=== PATIENT | female | born 1930 | race Caucasian/White ===

== ENCOUNTER 2017-03-20 15:22 | Inpatient (IN) | payer MEDICARE, OTHER ==
[~2017-03-20] VITALS: Ht 172.7 cm; Wt 85.8 kg
[2017-03-20] MEDS ORDERED: ONDANSETRON 4 MG INJ IV STA (15:25)
[2017-03-20] MEDS ORDERED: SOD CHLORIDE 0.9% 1,000 ML IV STA (15:25)
--- NOTE | 2017-03-20 16:15 | RADRPT ---
PROCEDURE: CT abdomen and pelvis without IV contrast. CLINICAL INDICATION: Abdominal pain TECHNIQUE: CT scan of the abdomen and pelvis without contrast was performed on the [employer] volumetric [address] scanner. The patient was scanned without intravenous contrast. Coronal and sagittal refo rmatted images were obtained from the axial source images. The CTDI vol is 23.62 mGy and the DLP is 1333.06 mGy-cm. COMPARISON: None. FINDINGS: CT abdomen: Mild dependent bibasilar atelectasis is seen. The remaining lung bases are clear. The heart size i s not enlarged and is without pericardial thickening or effusion. Coronary vascular calcifications a re seen. The liver is normal in size and is without focal mass or intrahepatic biliary dilatation. Geographic fatty infiltration of the liver is seen involving the left hepatic lobe adjacent to the falciform l igament. The spleen is normal in size and homogeneous in density. A small hiatal hernia is seen. The stomach is otherwise grossly unremarkable. The pancreas as visualized is normal. The gallbladder is contracted. No common bile duct dilatation is seen. The adrenal glands are symmetric and normal. The kidneys are symmetrically unremarkable as well. No renal calculus or obstructive uropathy or mass lesion is seen. The aorta is of normal in caliber. Atherosclerotic vascular disease is seen. There are There is no r etroperitoneal lymphadenopathy. The job hepatis region is clear. Sigmoid diverticulosis is seen without evidence of diverticulitis. The small and remainder of the large bowel and mesentery, as vis ualized, are otherwise unremarkable. No inflammatory changes in the periappendiceal region is seen. CT pelvis: The pelvic organs are normal. The pelvic sidewalls and inguinal regions are clear. No pelvic mass, lymphadenopathy, or free fluid is seen. No acute inflammation is seen. The urinary bladder is dis tended.. Diffuse osteopenia is seen. Degenerative spondylosis of the lumbar spine is seen. No osteolytic or osteoblastic lesion is detected. Diffuse fatty atrophy of the musculature is seen. IMPRESSION: 1. No acute pathology in the abdomen and pelvis. 2. Diffuse fatty atrophy of the musculature. 3. Sigmoid diverticulosis without evidence of diverticulitis. 4. Geographic fatty infiltration of the liver. RPTAT: HPNM Nilo Suarez, Physician Date Time Electronically viewed and signed by Nilo Suarez, Physician on 03/20/2017 16:14 /
--- NOTE | 2017-03-20 16:16 | ERA ---
ER Documentation Chief Complaint Date/Time DATE: 03/20/17 TIME: 16:14 Chief Complaint decreased appetite unable to eat or drink x3days HPI 86-year-old female, extremely pleasant who presents with decreased appetite and decreased p.o. intake over the past 3 days. Patient states that every time she eats or drinks she becomes nauseated. She states that she does not feel like eating or drinking. She denies any abdominal pain, no headache, no chest pain or shortness of breath no fevers or chills. No diarrhea. ROS All systems reviewed and are negative except as per history of present illness. Medications Home Meds Reported Medications Dextran/Hypromellose/Glycerin (Artificial Tears Drops) 15 Ml Drops, 2 DROP BOTH EYES BID, EA 03/20/17 Simvastatin* (Zocor*) 20 Mg Tablet, 20 MG PO QHS, #30 TAB 03/20/17 Docusate Sodium* (Colace*) 250 Mg Capsule, 250 MG PO QHS, #30 CAP 03/20/17 Escitalopram Oxalate* (Escitalopram Oxalate*) 10 Mg Tablet, 10 MG PO QAM, #30 TAB 03/20/17 Lorazepam* (Lorazepam*) 0.5 Mg Tablet, 0.5 MG PO HS Y for ANXIETY, TAB 03/20/17 Furosemide* (Furosemide*) 20 Mg Tablet, 20 MG PO DAILY, #60 TAB 03/20/17 Sennosides* (Senna Lax*) 8.6 Mg Tablet, 1 TAB PO DAILY Y for PRN, TAB 03/20/17 Ezetimibe* (Zetia*) 10 Mg Tablet, 10 MG PO DAILY, TAB 03/20/17 Cilostazol* (Cilostazol*) 100 Mg Tablet, 100 MG PO DAILY, TAB 03/20/17 Metoprolol Tartrate* (Lopressor*) 25 Mg Tab, 25 MG PO NOON, #60 TAB 03/20/17 Metformin Hcl* (Metformin Hcl*) 500 Mg Tablet, 500 MG PO WITH BREAKFAST, #30 TAB 03/20/17 Allergies Allergies: Coded Allergies: No Known Allergy (Unverified , 03/20/17) PMhx/Soc Medical and Surgical Hx: pt denies Surgical Hx History of Surgery: No Anesthesia Reaction: No Hx Neurological Disorder: No Hx Respiratory Disorders: No Hx Cardiac Disorders: Yes (CHF, HTN, Hyperlipidemia) Hx Psychiatric Problems: Yes (Depression) Hx Miscellaneous Medical Probl: Yes (DMII) Hx Alcohol Use: No Hx Substance Use: No Hx Tobacco Use: No Smoking Status: Never smoker FmHx Family History: No diabetes Physical Exam Vitals Vital Signs Date Time Temp Pulse Resp B/P Pulse Ox O2 Delivery O2 Flow Rate FiO2 03/20/17 16:56 86 14 157/79 98 Room Air 03/20/17 15:34 98.5 125 20 159/82 98 Physical Exam General: Well developed, well nourished, no acute distress Head: Normocephalic, atraumatic. Eyes: Pupils equally reactive, EOM intact ENT: Dry mucous membranes Neck: Supple, no lymphadenopathy Respiratory: Lungs clear bilaterally, no distress Cardiovascular: RRR, no murmurs, rubs, or gallops Abdominal: Soft, non-tender, non-distended, no peritoneal signs : Deferred MSK: No edema, no unilateral swelling, 5/5 strength Neurologic: Alert and oriented, moving all extremities, normal speech, no focal weakness, no cerebellar signs Skin: No rash Psych: Normal mood Result Diagram: 03/20/17 1650 03/20/17 1650 Results 24 hrs Laboratory Tests Test 03/20/17 16:50 White Blood Count 10.410^3/ul Red Blood Count 4.0910^6/ul Hemoglobin 12.7g/dl Hematocrit 38.7% Mean Corpuscular Volume 94.6fl Mean Corpuscular Hemoglobin 31.1pg Mean Corpuscular Hemoglobin Concent 32.8g/dl Red Cell Distribution Width 12.8% Platelet Count 57008^3/UL Mean Platelet Volume 11.1fl Neutrophils % 68.6% Lymphocytes % 19.3% Monocytes % 9.8% Eosinophils % 0.8% Basophils % 0.6% Nucleated Red Blood Cells % 0.0/100WBC Neutrophils # 7.210^3/ul Lymphocytes # 2.010^3/ul Monocytes # 1.010^3/ul Eosinophils # 0.110^3/ul Basophils # 0.110^3/ul Nucleated Red Blood Cells # 0.010^3/ul Sodium Level 142mmol/L Potassium Level 2.6mmol/L Chloride Level 94mmol/L Carbon Dioxide Level 25mmol/L Anion Gap 26 Blood Urea Nitrogen 11mg/dl Creatinine 0.58mg/dl Glucose Level 139mg/dl Calcium Level 6.7mg/dl Magnesium Level 0.5mg/dl Total Bilirubin 0.5mg/dl Direct Bilirubin 0.00mg/dl Indirect Bilirubin 0.5mg/dl Aspartate Amino Transf (AST/SGOT) 56IU/L Alanine Aminotransferase (ALT/SGPT) 28IU/L Alkaline Phosphatase 97IU/L Troponin I 0.078ng/ml Total Protein 8.4g/dl Albumin 3.9g/dl Globulin 4.50g/dl Albumin/Globulin Ratio 0.86 Lipase 57U/L Current Medications Medications (Trade) Dose Ordered Sig/Maria Del Rosario Route PRN Reason Start Time Stop Time Status Last Admin Dose Admin Sodium Chloride (NS) 1,000 ml @ 1,000 mls/hr Q1H STAT IV 03/20/17 15:25 03/20/17 16:24 DC 03/20/17 16:48 Ondansetron HCl 4 mg 4 mg ONCE STAT IV 03/20/17 15:25 03/20/17 15:26 DC 03/20/17 16:48 Potassium Chloride 50 ml @ 50 mls/hr Q1H IVPB 03/20/17 18:00 03/20/17 20:59 Potassium Chloride 30 meq/ Sodium Chloride 265 ml @ 85 mls/hr ONCE IV 03/20/17 18:00 03/20/17 23:00 Magnesium Sulfate/ Dextrose (Magnesium Sulfate 1 Gm/D5W) 100 ml @ 100 mls/hr ONCE ONCE IVPB 03/20/17 18:00 03/20/17 18:59 Ondansetron HCl (Zofran Inj) 4 mg BRIDGE ORDER PRN IV NAUSEA AND/OR VOMITING 03/20/17 18:30 03/21/17 18:29 Acetaminophen (Tylenol Tab) 650 mg ER BRIDGE PRN PO MILD PAIN/FEVER 03/20/17 18:30 03/21/17 18:29 Procedures/MDM EKG, MONITORS, & DIAGNOSTIC IMAGING: EKG: I reviewed and interpreted a 12-lead EKG. Rhythm: Normal sinus rhythm Ectopy: Trigeminy Intervals: No abnormalities ST segments: No elevations or depressions T waves: No contiguous inversions Chest x-ray: I reviewed and interpreted a 1 view of the chest Mediastinum: No enlargement Cardiac silhouette: No cardiomegaly Airspace: Clear lung hayden bilaterally without evidence of pneumothorax Bones: No evidence of fracture CT abdomen and pelvis: No acute intra-abdominal process per radiology PROCEDURE: Peripheral IV Insertion: Indication: Difficult IV access Location: Left deep brachial Attempts: 2 Angiocath-type: 18 The patient was consented prior to procedure and states understanding of risks, benefits, alternatives. Verbal consent was provided Sterile procedure was used to insert a peripheral IV. Indication, location and Angiocath-type are noted above. Ultrasound guidance was used to assist in the insertion of the Angiocath. Return of dark nonpulsatile blood was obtained, normal saline flushed through the Angiocath which was then secured to the skin. The patient tolerated the procedure well without complications. Emergency Bedside Ultrasound: The patient was verbally consented prior to procedure and understands the risks , benefits, and alternatives. The patient is agreeable to procedure and has given verbal consent. Indication: Peripheral IV insertion Probe Type: Linear Findings: Dynamic ultrasound utilized with compression technique with both linear and horizontal views. The images were printed off and placed on a paper document that will be scanned into the chart. The patient tolerated the procedure well and there were no complications. LAB INTERPRETATION: Hypokalemia, hypomagnesemia MEDICAL DECISION MAKING: The patient presents with decreased appetite. Very broad differential exists including infectious process versus acute intra-abdominal process versus viral syndrome versus normal aging. Given the patient's age, laboratory testing and diagnostic imaging would be appropriate including CT imaging of the abdomen and pelvis. Patient will receive IV fluid hydration. ER COURSE: The patient's potassium and magnesium have been repleted. She was given IV fluids. Given that the patient is severely dehydrated with electrolyte disturbances, no p.o. intake for 3 days inpatient hospitalization would be most appropriate. I kept the patient and/or family informed of laboratory and diagnostic imaging results throughout the emergency room course. DISPOSITION PLAN: Medical surgical admission for management of severe dehydration and electrolyte disturbances CONSULTATION: Accepting care team and consultations: I discussed the current laboratory data, diagnostic imaging and emergency care provided. Admitting team: Dr. Eng Admitting team indication: Insurance directed Departure Diagnosis: Primary Impression: Severe dehydration Additional Impressions: Loss of appetite Hypokalemia Hypomagnesemia Condition: Stable JES BRIZUELA MD March 20, 2017 16:16
--- NOTE | 2017-03-20 16:22 | RADRPT ---
PROCEDURE: XR Chest. CLINICAL INDICATION: Abdomen pain. TECHNIQUE: Single frontal view. COMPARISON: None. FINDINGS: The lungs are clear. The heart size is normal. There is calcification in the aorta consistent with atherosclerosis. There is no pleural effusion. There is no pneumothorax. IMPRESSION: 1. Atherosclerosis. 2. Otherwise normal chest radiograph. RPTAT: QQ .Larry Marsh MD, MD Date Time Electronically viewed and signed by .Larry Marsh MD, on 03/20/2017 16:22 .R/
[2017-03-20 16:57] LABS: ADD SCAN DIFF NO
[2017-03-20 16:58] LABS: BASOPHIL # 0.1 10^3/ul (0.0-0.1); BASOPHILS % 0.6 % (0.0-2.0); EOSINOPHILS # 0.1 10^3/ul (0.0-0.5); EOSINOPHILS % 0.8 % (0.0-7.0); HEMATOCRIT 38.7 % (37.0-47.0); HEMOGLOBIN 12.7 g/dl (12.0-16.0); LYMPHOCYTES % 19.3 % (15.0-51.0); MEAN CORPUSCULAR HEMOGLOBIN 31.1 pg (29.0-33.0); MEAN CORPUSCULAR HGB CONC 32.8 g/dl (32.0-37.0); MEAN CORPUSCULAR VOLUME 94.6 fl (82.0-101.0); MEAN PLATELET VOLUME 11.1 fl (7.4-10.4); MONOCYTES % 9.8 % (0.0-11.0); NEUTROPHIL # 7.2 10^3/ul (1.6-7.5); NEUTROPHILS % 68.6 % (39.0-77.0); PLATELET COUNT 258 10^3/UL (140-415); RED BLOOD COUNT 4.09 10^6/ul (4.20-5.40); RED CELL DISTRIBUTION WIDTH 12.8 % (11.5-14.5); WHITE BLOOD COUNT 10.4 10^3/ul (4.8-10.8)
[2017-03-20] MEDS ORDERED: METF500T4 PO (17:14)
[2017-03-20] MEDS ORDERED: METO-448 PO (17:17)
[2017-03-20 17:18] LABS: ALBUMIN 3.9 g/dl (3.3-4.9)
[2017-03-20] MEDS ORDERED: CILO100T PO (17:18)
[2017-03-20] MEDS ORDERED: EZET10TA3 PO (17:18)
[2017-03-20] MEDS ORDERED: FURO20TA3 PO (17:19)
[2017-03-20] MEDS ORDERED: SENN-53 PO (17:19)
[2017-03-20] MEDS ORDERED: LORA0.5T PO (17:20)
[2017-03-20] MEDS ORDERED: ESCI10TA48 PO (17:20)
[2017-03-20 17:21] LABS: BILIRUBIN,INDIRECT 0.5 mg/dl (0-1.1); BILIRUBIN,TOTAL 0.5 mg/dl (0.2-1.3); CREATININE 0.58 mg/dl (0.44-1.00)
[2017-03-20] MEDS ORDERED: DOCU250C58 PO (17:21)
[2017-03-20 17:22] LABS: ALBUMIN/GLOBULIN RATIO 0.86; CALCIUM 6.7 mg/dl (8.4-10.2); TOTAL PROTEIN 8.4 g/dl (6.1-8.1)
[2017-03-20] MEDS ORDERED: SIMV20TA PO (17:22)
[2017-03-20] MEDS ORDERED: DEXT15DR2 BOTH EYES (17:23)
[2017-03-20 17:26] LABS: POTASSIUM 2.6 mmol/L (3.5-5.1)
[2017-03-20 17:34] LABS: TROPONIN-I 0.078 ng/ml (0.00-0.12)
[2017-03-20] MEDS ORDERED: POTASSIUM CHLORIDE 30 MEQ in SOD CHLORIDE 0.9% 250 ML IV SCH (18:00)
[2017-03-20] MEDS: POTASSIUM CHLORIDE 50 ML IVPB SCH ×2 (18:00→22:18)
[2017-03-20] MEDS ORDERED: MAGNESIUM SULFATE 1 GM/D5W 100 ML IVPB ONE (18:00)
[2017-03-20] MEDS ORDERED: ACETAMINOPHEN 325 MG TAB PO PRN ×2 (18:30→19:00)
[2017-03-20] MEDS ORDERED: ONDANSETRON 4 MG INJ IV PRN ×2 (18:30→19:00)
[2017-03-20] MEDS ORDERED: LORAZEPAM 0.5 MG TAB PO PRN (19:00)
[2017-03-20] MEDS ORDERED: morphine 2 MG INJ IV PRN (19:00)
[2017-03-20] MEDS ORDERED: LORAZEPAM 2 MG INJ IV PRN (19:00)
[2017-03-20] MEDS ORDERED: NACL 0.9% 3 ML SYG IV SCH (19:00)
[2017-03-20] MEDS ORDERED: MAGNESIUM SULFATE 3 GM in SOD CHLORIDE 0.9% 100 ML IVPB ONE (19:00)
[2017-03-20] MEDS ORDERED: SENNA TAB PO PRN (19:00)
[2017-03-20] MEDS ORDERED: BISACODYL (EC) 5 MG TAB PO PRN (19:00)
[2017-03-20] MEDS ORDERED: MAGNESIUM HYDROXIDE 30ML CUP PO PRN (19:00)
[2017-03-20] MEDS ORDERED: HYDROCODONE/APAP (5/325) TAB PO PRN (19:00)
[2017-03-20] MEDS ORDERED: DEXTROSE 50% 50 ML SYRINGE IV PRN ×2 (19:30)
[2017-03-20] MEDS ORDERED: GLUCOSE GEL 15 GRAM TUBE PO PRN ×2 (19:30)
[2017-03-20] MEDS ORDERED: GLUCAGON 1 MG INJ IM PRN (19:30)
[2017-03-20] MEDS ORDERED: GLUCOSE GEL 15 GRAM TUBE BUCCAL PRN (19:30)
[2017-03-20 20:07] VITALS: BP 127/92; RESP 16
[2017-03-20] MEDS ORDERED: VITAMIN A & D 5 GM OINT PACKET TOP ONE (20:11)
--- NOTE | 2017-03-20 20:36 | HP ---
DATE OF ADMISSION: 03/20/2017 TIME OF EVALUATION: 1830. REASON FOR ADMISSION: Decreased appetite, poor oral intake for the past 3 days. HISTORY OF PRESENT ILLNESS: This is an 86-year-old female with past medical history of essential hypertension, type 2 diabetes mellitus, depression, hyperlipidemia and possible congestive heart failure who came to the emergency room because of decreased appetite and inability to eat and drink for the past 3 days with associated nausea. The patient denied any vomiting. The patient denied any abdominal pain. The patient denied any dislike of food. The patient lives in a [facility], and the patient had a good report of the [facility], and she likes to stay there. The patient denied any worsening depression. The patient is wheelchair bound and more or less immobile. The patient has a daughter who is very involved in the patient's care. The patient denied any fevers, chills, shortness of breath, chest pain. She denied any diarrhea, hematochezia, dysuria, or hematuria. In the emergency room, the patient was noticed to have significant hypokalemia with a potassium of 2.6 and significant hypomagnesemia with a magnesium of 0.5. The patient's chest x-ray showed atherosclerosis, but no evidence of any acute cardiopulmonary findings. The patient's CT scan of the abdomen and pelvis was negative for any acute pathology in the abdomen and pelvis. The patient was treated with IV fluids along with IV potassium and IV magnesium supplements in the emergency room. PAST MEDICAL HISTORY: Essential hypertension, type 2 diabetes mellitus, depression, hyperlipidemia, CHF. PAST SURGICAL HISTORY: Denies. HOME MEDICATIONS: 1. Simvastatin 20 mg p.o. at bedtime. 2. Lexapro 10 mg p.o. q.a.m. 3. Lorazepam 0.5 mg p.o. at bedtime p.r.n. anxiety. 4. Lasix 20 mg p.o. daily. 5. Zetia 10 mg p.o. daily. 6. Cilostazol 100 mg p.o. daily. 7. Lopressor 25 mg p.o. b.i.d. 8. Metformin 500 mg p.o. with breakfast and dinner. ALLERGIES: NO KNOWN DRUG ALLERGIES. SOCIAL HISTORY: The patient denied any history of tobacco, alcohol or illicit drug use. The patient currently resides in a [facility]. The patient has a daughter who is very involved in the patient's care. REVIEW OF SYSTEMS: A 12-point review of systems were made and review of systems was negative other than what is mentioned in history of present illness. PHYSICAL EXAMINATION: VITAL SIGNS: Temperature 98.5, pulse rate 77, respiratory rate 24, blood pressure 144/78, oxygen saturation 100% on room air. GENERAL: This is an obese female lying in bed in no apparent distress. HEENT: Head normocephalic and atraumatic. Eyes: Anicteric sclerae. Conjunctivae clear. ENT: Nasal septum is midline. Oral mucosa is dry. No oral thrush. NECK: Supple. No JVD noticed. RESPIRATORY: Bilaterally clear to auscultation. No adventitious breath sounds heard. No use of accessory muscles of respiration. CARDIOVASCULAR: Regular rate and rhythm. S1, S2 heard. ABDOMEN: Soft, nontender and nondistended. Bowel sounds positive in all 4 quadrants. GENITOURINARY: Deferred. EXTREMITIES: No cyanosis, no clubbing, no edema. Peripheral pulses are palpable. NEUROLOGIC: The patient is awake, alert and oriented x3. No focal neurologic deficits. LABORATORY AND DIAGNOSTIC DATA: WBC 10.4, hemoglobin 12.7, hematocrit 38.7, platelet count 258. Sodium 142, potassium 2.6, chloride 94, carbon dioxide 20, anion gap 26, BUN 11, creatinine was 0.58, glucose 139, calcium 6.7, magnesium 0.5, AST 56, ALT 20, alkaline phosphatase 97. Chest x-ray: Atherosclerosis. No acute cardiopulmonary findings. CT scan of the abdomen and pelvis: No acute pathology in the abdomen and pelvis. Diffuse diverticulosis without evidence of diverticulitis. Fatty infiltration of the liver. IMPRESSION: This is an 86-year-old female who came to the emergency room with chief complaint of poor oral intake and associated nausea, was found to have evidence of significant dehydration and electrolyte imbalances, who will be admitted here for further treatment and evaluation. ASSESSMENT AND PLAN: 1. Poor oral intake with electrolyte imbalances. The patient will be provided with IV hydration. The patient's electrolytes will be repleted. The patient will be monitored on telemetry floor for any cardiac arrhythmias. The patient will be started on a clear liquid diet, and the patient's diet will be advanced as tolerated. A swallow evaluation will be ordered. The patient's CT scan of the abdomen and pelvis are negative for any acute pathological findings. 2. Anion gap metabolic acidosis. Most probably secondary to underlying dehydration and fasting. The patient will be adequately hydrated using IV fluids. 3. Essential hypertension. The patient will be started on antihypertensives including p.r.n. antihypertensives for any systolic blood pressure readings greater than 160 mmHg. 4. Dyslipidemia. The patient's statins will be resumed. A fasting lipid panel will be obtained. 5. Type 2 diabetes mellitus. The patient will be started on sliding scale insulin. Hemoglobin A1c will be obtained to evaluate the blood glucose control over the past few weeks. 6. Hypokalemia. As mentioned earlier, the patient's potassium will be repleted. Repeat potassium will be done after potassium repletion is finished. 7. Hypomagnesemia. The patient's magnesium will be repleted. Repeat magnesium level will be obtained after the magnesium infusion is finished. 8. History of congestive heart failure. The patient's chest x-ray was negative for any pulmonary vascular congestion. The patient's cardiac medications including Lasix and beta blockers will be resumed. Plan. The patient will be admitted to inpatient telemetry floor. The patient will be started on DVT prophylaxis and gastrointestinal prophylaxis. The patient will remain a FULL CODE. Activities will be bed rest. The rest of the patient's management will be based on clinical course and the results of diagnostic studies. Based on the patient's clinical presentation, she most probably will require at least 1 midnight's stay for further management and evaluation of her clinical presentation. The case and management of this patient was fully discussed with Dr. Valencia. RON VALENCIA MD, AM/YA Conf#: [id number] DID#: [id number] ALICIA
[2017-03-20 20:41] VITALS: PULSE 75
[2017-03-20 21:00] VITALS: Ht 172.7 cm; Wt 85.8 kg
[2017-03-20] MEDS: INSULIN ASPART [NOVOLOG] 3 ML PEN SC SCH (21:00)
[2017-03-20 21:05] LABS: CHOL/HDL RATIO 2.4 RATIO
[2017-03-20 21:06] LABS: POTASSIUM 3.1 mmol/L (3.5-5.1)
[2017-03-20 21:12] LABS: MAGNESIUM 0.8 mg/dl (1.7-2.5)
[2017-03-20] MEDS: FAMOTIDINE 20 MG TAB PO SCH (21:48)
[2017-03-20] MEDS: NS + KCL 20 MEQ 1,000 ML IV SCH (21:48)
[2017-03-20] MEDS: ATORVASTATIN 10 MG TAB PO SCH (21:48)
[2017-03-20] MEDS: METOPROLOL 25 MG TAB PO SCH (21:48)
[2017-03-20] MEDS: DOCUSATE SODIUM 250 MG CAP PO SCH (21:48)
[2017-03-20] MEDS: ARTIFICIAL TEARS 15 ML OPH BOTH EYES SCH (21:50)
[2017-03-21] VITALS (13 sets, daily range): BP systolic 111–167; BP diastolic 56–72; PULSE 63–81; RESP 16–19
[2017-03-21 07:18] LABS: ADD SCAN DIFF NO
[2017-03-21 07:35] LABS: BASOPHIL # 0.1 10^3/ul (0.0-0.1); BASOPHILS % 0.5 % (0.0-2.0); EOSINOPHILS # 0.2 10^3/ul (0.0-0.5); EOSINOPHILS % 1.4 % (0.0-7.0); HEMATOCRIT 33.6 % (37.0-47.0); LYMPHOCYTES # 1.6 10^3/ul (0.8-2.9); LYMPHOCYTES % 14.6 % (15.0-51.0); MEAN CORPUSCULAR HGB CONC 32.7 g/dl (32.0-37.0); MEAN CORPUSCULAR VOLUME 94.6 fl (82.0-101.0); MONOCYTE # 0.9 10^3/ul (0.3-0.9); MONOCYTES % 8.5 % (0.0-11.0); NEUTROPHIL # 7.9 10^3/ul (1.6-7.5); NEUTROPHILS % 74.2 % (39.0-77.0); PLATELET COUNT 323 10^3/UL (140-415); RED BLOOD COUNT 3.55 10^6/ul (4.20-5.40); RED CELL DISTRIBUTION WIDTH 12.7 % (11.5-14.5); WHITE BLOOD COUNT 10.7 10^3/ul (4.8-10.8)
[2017-03-21 07:54] LABS: ALBUMIN/GLOBULIN RATIO 0.83; BILIRUBIN,INDIRECT 0.3 mg/dl (0-1.1); BILIRUBIN,TOTAL 0.3 mg/dl (0.2-1.3); CALCIUM 6.5 mg/dl (8.4-10.2); CREATININE 0.49 mg/dl (0.44-1.00); POTASSIUM 3.1 mmol/L (3.5-5.1); TOTAL PROTEIN 6.6 g/dl (6.1-8.1)
[2017-03-21 07:56] LABS: MAGNESIUM 1.6 mg/dl (1.7-2.5); PHOSPHORUS 2.3 mg/dl (2.5-4.9)
[2017-03-21] MEDS: INSULIN ASPART [NOVOLOG] 3 ML PEN SC SCH ×4 (07:58→21:00)
[2017-03-21 08:02] LABS: TROPONIN-I 0.086 ng/ml (0.00-0.12)
[2017-03-21] MEDS: ARTIFICIAL TEARS 15 ML OPH BOTH EYES SCH ×2 (08:50→21:04)
[2017-03-21] MEDS: ENOXAPARIN 40 MG/0.4 ML SYG SC SCH (08:54)
[2017-03-21] MEDS: CILOSTAZOL 100 MG TAB PO SCH (09:54)
[2017-03-21] MEDS: FUROSEMIDE 20 MG TAB PO SCH (09:54)
[2017-03-21] MEDS: ESCITALOPRAM 10 MG TAB PO SCH (09:54)
[2017-03-21] MEDS: FAMOTIDINE 20 MG TAB PO SCH ×2 (09:54→21:03)
[2017-03-21] MEDS: METOPROLOL 25 MG TAB PO SCH ×2 (09:55→21:04)
[2017-03-21] MEDS ORDERED: MAGNESIUM SULFATE 2 GM/50 ML 50 ML IVPB ONE (10:00)
[2017-03-21] MEDS ORDERED: POTASSIUM CHLORIDE 250 ML IVPB ONE (11:00)
[2017-03-21] MEDS: EZETIMIBE 10 MG TAB PO SCH (11:25)
[2017-03-21] MEDS: NS + KCL 20 MEQ 1,000 ML IV SCH (11:29)
--- NOTE | 2017-03-21 15:46 | PN ---
Date/Time of Note Date/Time of Note DATE: 03/21/17 TIME: 15:41 Assessment/Plan VTE Prophylaxis VTE Prophylaxis Intervention: LMWH Lines/Catheters IV Catheter Type (from [facility]): Peripheral IV Urinary Cath still in place: No Assessment/Plan Chief Complaint/Hosp Course 1. Poor oral intake with electrolyte imbalances. The patient will be provided with IV hydration. The patient's electrolytes will be repleted. The patient will be monitored on telemetry floor for any cardiac arrhythmias. 2. Dysphagia. Status post with therapy evaluation per speech therapy recommended a video swallow eval. Video swallow evaluation ordered. 3. Anion gap metabolic acidosis. Most probably secondary to underlying dehydration and fasting. Resolved with IV hydration. 4. Essential hypertension. The patient will be continued on antihypertensives including p.r.n. antihypertensives for any systolic blood pressure readings greater than 160 mmHg. 5. Dyslipidemia. Continue statins. Fasting lipid panel satisfactory. 6. Type 2 diabetes mellitus. The patient was continued on sliding scale insulin. Hemoglobin A1c 6.4. 7. Hypokalemia. Replete. 8. Hypomagnesemia. Replete. 9. History of congestive heart failure. The patient's chest x-ray was negative for any pulmonary vascular congestion. The patient's cardiac medications including Lasix and beta blockers will be continued. 10. Fluids, electrolytes, and nutrition. Pured diet. 11. DVT prophylaxis. Subcutaneous Lovenox. 12. Gastrointestinal prophylaxis. Histamine 2 receptor blockers. 13. Plan. Continue IV hydration. Replete potassium and magnesium. Obtain physical therapy evaluation. Ordered a video swallow evaluation Problems: Subjective 24 Hr Interval Summary Free Text/Dictation The patient denies any nausea today. Status post evaluation by speech therapy. Exam/Review of Systems Vital Signs Vitals Vital Signs Date Time Temp Pulse Resp B/P Pulse Ox O2 Delivery O2 Flow Rate FiO2 03/21/17 15:37 98.0 73 19 129/62 95 03/20/17 18:19 Room Air Intake and Output 03/20/17 03/20/17 03/21/17 15:00 23:00 07:00 Intake Total 680 ml Balance 680 ml Exam GENERAL: This is an obese female lying in bed in no apparent distress. HEENT: Head normocephalic and atraumatic. Eyes: Anicteric sclerae. Conjunctivae clear. ENT: Nasal septum is midline. Oral mucosa is dry. No oral thrush. NECK: Supple. No JVD noticed. RESPIRATORY: Bilaterally clear to auscultation. No adventitious breath sounds heard. No use of accessory muscles of respiration. CARDIOVASCULAR: Regular rate and rhythm. S1, S2 heard. ABDOMEN: Soft, nontender and nondistended. Bowel sounds positive in all 4 quadrants. GENITOURINARY: Deferred. EXTREMITIES: No cyanosis, no clubbing, no edema. Peripheral pulses are palpable. NEUROLOGIC: The patient is awake, alert and oriented x3. No focal neurologic deficits. Results Result Diagram: 03/21/17 0640 03/21/17 0640 Results 24 hrs Laboratory Tests Test 03/20/17 16:50 03/20/17 20:10 03/20/17 20:20 03/21/17 06:40 White Blood Count 10.4 10.7 Red Blood Count 4.09 L 3.55 L Hemoglobin 12.7 11.0 L Hematocrit 38.7 33.6 L Mean Corpuscular Volume 94.6 94.6 Mean Corpuscular Hemoglobin 31.1 31.0 Mean Corpuscular Hemoglobin Concent 32.8 32.7 Red Cell Distribution Width 12.8 12.7 Platelet Count 258 323 # Mean Platelet Volume 11.1 H 11.0 H Neutrophils % 68.6 74.2 Lymphocytes % 19.3 14.6 L Monocytes % 9.8 8.5 Eosinophils % 0.8 1.4 Basophils % 0.6 0.5 Nucleated Red Blood Cells % 0.0 0.0 Neutrophils # 7.2 7.9 H Lymphocytes # 2.0 1.6 Monocytes # 1.0 H 0.9 Eosinophils # 0.1 0.2 Basophils # 0.1 0.1 Nucleated Red Blood Cells # 0.0 0.0 Sodium Level 142 138 Potassium Level 2.6 *L 3.1 L 3.1 L Chloride Level 94 L 102 Carbon Dioxide Level 25 23 Anion Gap 26 H 16 # Blood Urea Nitrogen 11 8 Creatinine 0.58 0.49 Glucose Level 139 131 Calcium Level 6.7 L 6.5 L Magnesium Level 0.5 *L 0.8 *L 1.6 L Total Bilirubin 0.5 0.3 Direct Bilirubin 0.00 0.00 Indirect Bilirubin 0.5 0.3 Aspartate Amino Transf (AST/SGOT) 56 H 51 H Alanine Aminotransferase (ALT/SGPT) 28 35 Alkaline Phosphatase 97 84 Troponin I 0.078 0.086 Total Protein 8.4 H 6.6 # Albumin 3.9 3.0 L Globulin 4.50 H 3.60 H Albumin/Globulin Ratio 0.86 0.83 Lipase 57 Bedside Glucose 146 Hemoglobin A1c 6.4 H Triglycerides Level 103 Cholesterol Level 121 LDL Cholesterol, Calculated 50 HDL Cholesterol 50 Cholesterol/HDL Ratio 2.4 Thyroid Stimulating Hormone (TSH) 1.470 Free Thyroxine 1.76 Phosphorus Level 2.3 L Test 03/21/17 07:56 03/21/17 11:27 Bedside Glucose 139 182 Medications Medications Current Medications Potassium Chloride/Sodium Chloride (NS-KCl 20 Meq) 1,000 ml @ 60 mls/hr [id number] IV Last administered on 03/20/17 21:48; Admin Dose 60 MLS/HR; Start at 18:50 Lorazepam (Ativan) 0.5 mg Q6H PRN IV ANXIETY; Start 03/20/17 at 19:00 Ondansetron HCl (Zofran Inj) 4 mg Q6H PRN IV NAUSEA AND/OR VOMITING; Start at 19:00 Acetaminophen (Tylenol Tab) 650 mg Q6H PRN PO PAIN LEVEL 1-3 OR FEVER; Start at 19:00 Acetaminophen/ Hydrocodone Bitart ([place] (5/325)) 1 tab Q6H PRN PO PAIN LEVEL 4 -6; Start 03/20/17 at 19:00 Morphine Sulfate (morphine) 2 mg Q4H PRN IV PAIN LEVEL 7-10; Start 03/20/17 at 19:00 Magnesium Hydroxide (Milk Of Mag) 30 ml DAILY PRN PO CONSTIPATION; Start at 19:00 Bisacodyl (Dulcolax) 5 mg DAILY PRN PO CONSTIPATION; Start 03/20/17 at 19:00 Famotidine (Pepcid) 20 mg Q12 PO Last administered on 03/21/17 09:54; Admin Dose 20 MG; Start 03/20/17 at 21:00 Enoxaparin Sodium (Lovenox) 40 mg DAILY SC Last administered on 03/21/17 08:54 ; Admin Dose 40 MG; Start 03/21/17 at 09:00 Cilostazol (Pletal) 100 mg DAILY PO Last administered on 03/21/17 09:54; Admin Dose 100 MG; Start 03/21/17 at 09:00 Eye Lubricant (Artificial Tears Oph) 2 drop BID BOTH EYES Last administered on 03/21/17 08:50; Admin Dose 2 DROP; Start 03/20/17 at 21:00 Docusate Sodium (Colace) 250 mg QHS PO Last administered on 03/20/17 21:48; Admin Dose 250 MG; Start 03/20/17 at 21:00 Escitalopram Oxalate (Lexapro) 10 mg QAM PO Last administered on 03/21/17 09: 54; Admin Dose 10 MG; Start 03/21/17 at 09:00 EZETIMIBE (Zetia) 10 mg DAILY PO Last administered on 03/21/17 11:25; Admin Dose 10 MG; Start 03/21/17 at 09:00 Furosemide (Lasix) 20 mg DAILY PO Last administered on 03/21/17 09:54; Admin Dose 20 MG; Start 03/21/17 at 09:00 Lorazepam (Ativan) 0.5 mg HS PRN PO ANXIETY; Start 03/20/17 at 19:00 Metoprolol Tartrate (Lopressor) 25 mg BID PO Last administered on 03/21/17 09: 55; Admin Dose 25 MG; Start 03/20/17 at 21:00 Senna (Senokot) 1 tab DAILY PRN PO PRN; Start 03/20/17 at 19:00 Atorvastatin Calcium (Lipitor) 10 mg DAILY@21 PO Last administered on 21:48; Admin Dose 10 MG; Start 03/20/17 at 21:00 Miscellaneous Information 1 ea NOTE XX ; Start 03/20/17 at 19:30 Glucose (Glutose) 15 gm Q15M PRN PO DECREASED GLUCOSE; Start 03/20/17 at 19:30 Glucose (Glutose) 22.5 gm Q15M PRN PO DECREASED GLUCOSE; Start 03/20/17 at 19: 30 Dextrose (D50w Syringe) 25 ml Q15M PRN IV DECREASED GLUCOSE; Start 03/20/17 at 19:30 Dextrose (D50w Syringe) 50 ml Q15M PRN IV DECREASED GLUCOSE; Start 03/20/17 at 19:30 Glucagon (Glucagen) 1 mg Q15M PRN IM DECREASED GLUCOSE; Start 03/20/17 at 19:30 Glucose (Glutose) 15 gm Q15M PRN BUCCAL DECREASED GLUCOSE; Start 03/20/17 at 19 :30 RON MORRIS NP March 21, 2017 15:46
[2017-03-21 19:15] LABS: ADD UMIC YES; URINE BILIRUBIN (Dip) 1+ (NEGATIVE); URINE BLOOD (Dip) NEGATIVE (NEGATIVE); URINE COLOR LT. YELLOW (YELLOW); URINE GLUCOSE (Dip) NEGATIVE (NEGATIVE); URINE KETONES (Dip) 3+ (NEGATIVE); URINE LEUKOCYTE ESTERASE (Dip) NEGATIVE (NEGATIVE); URINE NITRITE (Dip) NEGATIVE (NEGATIVE); URINE TOTAL PROTEIN (Dip) TRACE (NEGATIVE); URINE UROBILINOGEN (Dip) 0.2 E.U./dL (0.1-1.0)
[2017-03-21 19:23] LABS: ICTOTEST NEGATIVE (NEGATIVE)
[2017-03-21 19:24] LABS: BACTERIA,URINE FEW; URINE RBCS 0-2 /HPF (0)
[2017-03-21] MEDS: ATORVASTATIN 10 MG TAB PO SCH (21:03)
[2017-03-21] MEDS: DOCUSATE SODIUM 250 MG CAP PO SCH (21:04)
[2017-03-22] VITALS (9 sets, daily range): BP systolic 114–135; BP diastolic 55–63; PULSE 65–91; RESP 18–19
[2017-03-22] MEDS: NS + KCL 20 MEQ 1,000 ML IV SCH ×2 (05:14→23:00)
[2017-03-22 07:30] LABS: ADD SCAN DIFF NO
[2017-03-22 07:34] LABS: BASOPHIL # 0.1 10^3/ul (0.0-0.1); BASOPHILS % 0.6 % (0.0-2.0); EOSINOPHILS # 0.2 10^3/ul (0.0-0.5); EOSINOPHILS % 2.9 % (0.0-7.0); HEMATOCRIT 31.8 % (37.0-47.0); HEMOGLOBIN 10.1 g/dl (12.0-16.0); LYMPHOCYTES # 2.4 10^3/ul (0.8-2.9); LYMPHOCYTES % 28.1 % (15.0-51.0); MEAN CORPUSCULAR HEMOGLOBIN 30.9 pg (29.0-33.0); MEAN CORPUSCULAR HGB CONC 31.8 g/dl (32.0-37.0); MEAN CORPUSCULAR VOLUME 97.2 fl (82.0-101.0); MEAN PLATELET VOLUME 12.3 fl (7.4-10.4); MONOCYTE # 0.7 10^3/ul (0.3-0.9); MONOCYTES % 8.7 % (0.0-11.0); NEUTROPHILS % 59.2 % (39.0-77.0); RED BLOOD COUNT 3.27 10^6/ul (4.20-5.40); WHITE BLOOD COUNT 8.4 10^3/ul (4.8-10.8)
[2017-03-22 07:40] LABS: PLATELET COUNT 248 10^3/UL (140-415)
[2017-03-22 07:46] LABS: CALCIUM 6.4 mg/dl (8.4-10.2); CREATININE 0.59 mg/dl (0.44-1.00); POTASSIUM 3.5 mmol/L (3.5-5.1)
[2017-03-22 07:49] LABS: MAGNESIUM 1.9 mg/dl (1.7-2.5); PHOSPHORUS 2.4 mg/dl (2.5-4.9)
[2017-03-22] MEDS: INSULIN ASPART [NOVOLOG] 3 ML PEN SC SCH ×4 (07:57→21:00)
[2017-03-22] MEDS: ARTIFICIAL TEARS 15 ML OPH BOTH EYES SCH ×2 (08:14→21:00)
[2017-03-22] MEDS: ENOXAPARIN 40 MG/0.4 ML SYG SC SCH (08:15)
[2017-03-22] MEDS: FAMOTIDINE 20 MG TAB PO SCH ×2 (08:15→21:00)
[2017-03-22] MEDS: CILOSTAZOL 100 MG TAB PO SCH (08:15)
[2017-03-22] MEDS: EZETIMIBE 10 MG TAB PO SCH (08:15)
[2017-03-22] MEDS: ESCITALOPRAM 10 MG TAB PO SCH (08:16)
[2017-03-22] MEDS: METOPROLOL 25 MG TAB PO SCH ×2 (08:19→21:00)
[2017-03-22] MEDS: FUROSEMIDE 20 MG TAB PO SCH (08:20)
--- NOTE | 2017-03-22 09:53 | PN ---
Date/Time of Note Date/Time of Note DATE: 03/22/17 TIME: 09:51 Assessment/Plan VTE Prophylaxis VTE Prophylaxis Intervention: LMWH Lines/Catheters IV Catheter Type (from [facility]): Peripheral IV Urinary Cath still in place: No Assessment/Plan Chief Complaint/Hosp Course Assessment and plan 1. Poor oral intake with subsequent I imbalances. On IV hydration. Encourage oral intake. Will monitor electrolytes and replete as needed. Appears stable at this time. 2. Dysphagia. Tentative plan for video swallow study. Awaiting evaluation. 3. Anion gap metabolic acidosis. Improved status post IV hydration. Will monitor for now. 4. Essential hypertension. Continue antihypertensives and adjust needed 5. Dyslipidemia. Continue on statin medication 6. Type 2 diabetes. Noted with A1c of 6.4. Continue insulin regimen. Will adjust as needed 7. Hypokalemia. Improved after repletion. Will monitor and replete as needed 8. Hypomagnesemia. Improved at this time. Will monitor and replete as needed GERD prophylaxis: H2 christie DVT [place]: Lovenox Disposition plan: Await video swallow study. Encourage oral intake. Monitor electrolytes. Discharge when medically stable Discussed plan of care with Dr. Eng Problems: Subjective 24 Hr Interval Summary Free Text/Dictation Still reports having some poor appetite. He is alert and oriented at this time. No apparent distress Exam/Review of Systems Vital Signs Vitals Vital Signs Date Time Temp Pulse Resp B/P Pulse Ox O2 Delivery O2 Flow Rate FiO2 03/22/17 08:20 98.0 71 19 114/55 95 03/21/17 21:02 Room Air Intake and Output 03/21/17 03/21/17 03/22/17 14:59 22:59 06:59 Intake Total 550 ml Output Total 650 ml Balance -100 ml Exam Constitutional: alert, oriented Psych: nl mood/affect Head: normocephalic Neck: supple, No jvd Respiratory: clear to auscultation, normal air movement Cardiovascular: regular rate and rhythm Gastrointestinal: non-tender, soft Musculoskeletal: No nl gait and stance Extremities: edema Neurological: nl mental status (Minimal bilateral lower extremities +1), nl speech Results Result Diagram: 03/22/17 0650 03/22/17 0650 Results 24 hrs Laboratory Tests Test 03/21/17 11:27 03/21/17 16:44 03/21/17 18:40 03/21/17 21:01 Bedside Glucose 182 151 149 Urine Color LT. YELLOW Urine Clarity CLEAR Urine pH 6.0 Urine Specific [place] 1.020 Urine Ketones 3+ H Urine Nitrite NEGATIVE Urine Bilirubin 1+ H Urine Ictotest NEGATIVE Urine Urobilinogen 0.2 E.U./dL Urine Leukocyte Esterase NEGATIVE Urine Microscopic RBC 0-2 Urine Microscopic WBC 0-2 Urine Bacteria FEW Urine Hemoglobin NEGATIVE Urine Glucose NEGATIVE Urine Total Protein TRACE Test 03/22/17 06:50 03/22/17 07:56 White Blood Count 8.4 # Red Blood Count 3.27 L Hemoglobin 10.1 L Hematocrit 31.8 L Mean Corpuscular Volume 97.2 Mean Corpuscular Hemoglobin 30.9 Mean Corpuscular Hemoglobin Concent 31.8 L Red Cell Distribution Width 13.0 Platelet Count 248 # Mean Platelet Volume 12.3 H Neutrophils % 59.2 Lymphocytes % 28.1 Monocytes % 8.7 Eosinophils % 2.9 Basophils % 0.6 Nucleated Red Blood Cells % 0.0 Neutrophils # 5.0 Lymphocytes # 2.4 Monocytes # 0.7 Eosinophils # 0.2 Basophils # 0.1 Nucleated Red Blood Cells # 0.0 Sodium Level 141 Potassium Level 3.5 Chloride Level 107 Carbon Dioxide Level 27 Anion Gap 11 Blood Urea Nitrogen 11 Creatinine 0.59 Glucose Level 111 Calcium Level 6.4 L Phosphorus Level 2.4 L Magnesium Level 1.9 Bedside Glucose 110 Medications Medications Current Medications Potassium Chloride/Sodium Chloride (NS-KCl 20 Meq) 1,000 ml @ 60 mls/hr [id number] IV Last administered on 03/22/17 05:14; Admin Dose 60 MLS/HR; Start at 18:50 Lorazepam (Ativan) 0.5 mg Q6H PRN IV ANXIETY; Start 03/20/17 at 19:00 Ondansetron HCl (Zofran Inj) 4 mg Q6H PRN IV NAUSEA AND/OR VOMITING; Start at 19:00 Acetaminophen (Tylenol Tab) 650 mg Q6H PRN PO PAIN LEVEL 1-3 OR FEVER; Start at 19:00 Acetaminophen/ Hydrocodone Bitart ([place] (5/325)) 1 tab Q6H PRN PO PAIN LEVEL 4 -6 Last administered on 03/21/17 16:39; Admin Dose 1 TAB; Start 03/20/17 at 19: 00 Morphine Sulfate (morphine) 2 mg Q4H PRN IV PAIN LEVEL 7-10; Start 03/20/17 at 19:00 Magnesium Hydroxide (Milk Of Mag) 30 ml DAILY PRN PO CONSTIPATION; Start at 19:00 Bisacodyl (Dulcolax) 5 mg DAILY PRN PO CONSTIPATION; Start 03/20/17 at 19:00 Famotidine (Pepcid) 20 mg Q12 PO Last administered on 03/22/17 08:15; Admin Dose 20 MG; Start 03/20/17 at 21:00 Enoxaparin Sodium (Lovenox) 40 mg DAILY SC Last administered on 03/22/17 08:15 ; Admin Dose 40 MG; Start 03/21/17 at 09:00 Cilostazol (Pletal) 100 mg DAILY PO Last administered on 03/22/17 08:15; Admin Dose 100 MG; Start 03/21/17 at 09:00 Eye Lubricant (Artificial Tears Oph) 2 drop BID BOTH EYES Last administered on 03/22/17 08:14; Admin Dose 2 DROP; Start 03/20/17 at 21:00 Docusate Sodium (Colace) 250 mg QHS PO Last administered on 03/21/17 21:04; Admin Dose 250 MG; Start 03/20/17 at 21:00 Escitalopram Oxalate (Lexapro) 10 mg QAM PO Last administered on 03/22/17 08: 16; Admin Dose 10 MG; Start 03/21/17 at 09:00 EZETIMIBE (Zetia) 10 mg DAILY PO Last administered on 03/22/17 08:15; Admin Dose 10 MG; Start 03/21/17 at 09:00 Furosemide (Lasix) 20 mg DAILY PO Last administered on 03/22/17 08:20; Admin Dose 20 MG; Start 03/21/17 at 09:00 Lorazepam (Ativan) 0.5 mg HS PRN PO ANXIETY; Start 03/20/17 at 19:00 Metoprolol Tartrate (Lopressor) 25 mg BID PO Last administered on 03/22/17 08: 19; Admin Dose 25 MG; Start 03/20/17 at 21:00 Senna (Senokot) 1 tab DAILY PRN PO PRN; Start 03/20/17 at 19:00 Atorvastatin Calcium (Lipitor) 10 mg DAILY@21 PO Last administered on t 21:03; Admin Dose 10 MG; Start 03/20/17 at 21:00 Miscellaneous Information 1 ea NOTE XX ; Start 03/20/17 at 19:30 Glucose (Glutose) 15 gm Q15M PRN PO DECREASED GLUCOSE; Start 03/20/17 at 19:30 Glucose (Glutose) 22.5 gm Q15M PRN PO DECREASED GLUCOSE; Start 03/20/17 at 19: 30 Dextrose (D50w Syringe) 25 ml Q15M PRN IV DECREASED GLUCOSE; Start 03/20/17 at 19:30 Dextrose (D50w Syringe) 50 ml Q15M PRN IV DECREASED GLUCOSE; Start 03/20/17 at 19:30 Glucagon (Glucagen) 1 mg Q15M PRN IM DECREASED GLUCOSE; Start 03/20/17 at 19:30 Glucose (Glutose) 15 gm Q15M PRN BUCCAL DECREASED GLUCOSE; Start 03/20/17 at 19 :30 MT GANN March 22, 2017 09:53
[2017-03-22] MEDS: ATORVASTATIN 10 MG TAB PO SCH (21:00)
[2017-03-22] MEDS: DOCUSATE SODIUM 250 MG CAP PO SCH (21:00)
[2017-03-23] VITALS (11 sets, daily range): BP systolic 108–183; BP diastolic 56–86; PULSE 83–100; RESP 17–20
[2017-03-23] MEDS: INSULIN ASPART [NOVOLOG] 3 ML PEN SC SCH ×4 (07:25→21:00)
[2017-03-23] MEDS: FAMOTIDINE 20 MG TAB PO SCH ×2 (09:13→21:14)
[2017-03-23] MEDS: ARTIFICIAL TEARS 15 ML OPH BOTH EYES SCH ×2 (09:13→21:14)
[2017-03-23] MEDS: EZETIMIBE 10 MG TAB PO SCH (09:13)
[2017-03-23] MEDS: CILOSTAZOL 100 MG TAB PO SCH (09:13)
[2017-03-23] MEDS: METOPROLOL 25 MG TAB PO SCH ×2 (09:14→21:14)
[2017-03-23] MEDS: FUROSEMIDE 20 MG TAB PO SCH (09:14)
[2017-03-23] MEDS: ESCITALOPRAM 10 MG TAB PO SCH (09:14)
[2017-03-23] MEDS: ENOXAPARIN 40 MG/0.4 ML SYG SC SCH (09:15)
--- NOTE | 2017-03-23 11:33 | PN ---
Date/Time of Note Date/Time of Note DATE: 03/23/17 TIME: 11:31 Assessment/Plan VTE Prophylaxis VTE Prophylaxis Intervention: LMWH Lines/Catheters IV C[facility]ter Type (from [facility]): Peripheral IV Urinary Cath still in place: No Assessment/Plan Chief Complaint/Hosp Course 1. Poor oral intake with electrolyte imbalances. The patient will be provided with IV hydration. The patient's electrolytes will be repleted. The patient will be monitored on telemetry floor for any cardiac arrhythmias. 2. Dysphagia. Status post with therapy evaluation per speech therapy recommended a video swallow eval. Video swallow evaluation ordered. 3. Anion gap metabolic acidosis. Most probably secondary to underlying dehydration and fasting. Resolved with IV hydration. 4. Essential hypertension. The patient will be continued on antihypertensives including p.r.n. antihypertensives for any systolic blood pressure readings greater than 160 mmHg. 5. Dyslipidemia. Continue statins. Fasting lipid panel satisfactory. 6. Type 2 diabetes mellitus. The patient was continued on sliding scale insulin. Hemoglobin A1c 6.4. 7. History of congestive heart failure. The patient's chest x-ray was negative for any pulmonary vascular congestion. The patient's cardiac medications including Lasix and beta blockers will be continued. 8. Fluids, electrolytes, and nutrition. Pured diet. 9. DVT prophylaxis. Subcutaneous Lovenox. 10. Gastrointestinal prophylaxis. Histamine 2 receptor blockers. 11. Plan. Continue IV hydration. Await video swallow evaluation. Add PRN antihypertensives. Case discussed with Dr. Eng. Problems: Subjective 24 Hr Interval Summary Free Text/Dictation BP on the higher side. Exam/Review of Systems Vital Signs Vitals Vital Signs Date Time Temp Pulse Resp B/P Pulse Ox O2 Delivery O2 Flow Rate FiO2 03/23/17 08:15 94 03/23/17 07:45 98.1 17 183/70 91 03/21/17 21:02 Room Air Intake and Output 03/22/17 03/22/17 03/23/17 15:00 23:00 07:00 Intake Total 150 ml Balance 150 ml Exam GENERAL: This is an obese female lying in bed in no apparent distress. HEENT: Head normocephalic and atraumatic. Eyes: Anicteric sclerae. Conjunctivae clear. ENT: Nasal septum is midline. Oral mucosa is dry. No oral thrush. NECK: Supple. No JVD noticed. RESPIRATORY: Bilaterally clear to auscultation. No adventitious breath sounds heard. No use of accessory muscles of respiration. CARDIOVASCULAR: Regular rate and rhythm. S1, S2 heard. ABDOMEN: Soft, nontender and nondistended. Bowel sounds positive in all 4 quadrants. GENITOURINARY: Deferred. EXTREMITIES: No cyanosis, no clubbing, no edema. Peripheral pulses are palpable. NEUROLOGIC: The patient is awake, alert and oriented x3. No focal neurologic deficits. Results Result Diagram: 03/22/17 0650 03/22/17 0650 Results 24 hrs Laboratory Tests Test 03/22/17 12:07 03/22/17 17:35 03/22/17 22:42 03/23/17 07:23 Bedside Glucose 125 147 130 122 Medications Medications Current Medications Potassium Chloride/Sodium Chloride (NS-KCl 20 Meq) 1,000 ml @ 60 mls/hr [id number] IV Last administered on 03/22/17 23:00; Admin Dose 60 MLS/HR; Start at 18:50 Lorazepam (Ativan) 0.5 mg Q6H PRN IV ANXIETY; Start 03/20/17 at 19:00 Ondansetron HCl (Zofran Inj) 4 mg Q6H PRN IV NAUSEA AND/OR VOMITING; Start at 19:00 Acetaminophen (Tylenol Tab) 650 mg Q6H PRN PO PAIN LEVEL 1-3 OR FEVER; Start at 19:00 Acetaminophen/ Hydrocodone Bitart ([employer] (5/325)) 1 tab Q6H PRN PO PAIN LEVEL 4 -6 Last administered on 03/21/17 16:39; Admin Dose 1 TAB; Start 03/20/17 at 19: 00 Morphine Sulfate (morphine) 2 mg Q4H PRN IV PAIN LEVEL 7-10; Start 03/20/17 at 19:00 Magnesium Hydroxide (Milk Of Mag) 30 ml DAILY PRN PO CONSTIPATION; Start at 19:00 Bisacodyl (Dulcolax) 5 mg DAILY PRN PO CONSTIPATION; Start 03/20/17 at 19:00 Famotidine (Pepcid) 20 mg Q12 PO Last administered on 03/23/17 09:13; Admin Dose 20 MG; Start 03/20/17 at 21:00 Enoxaparin Sodium (Lovenox) 40 mg DAILY SC Last administered on 03/23/17 09:15 ; Admin Dose 40 MG; Start 03/21/17 at 09:00 Cilostazol (Pletal) 100 mg DAILY PO Last administered on 03/23/17 09:13; Admin Dose 100 MG; Start 03/21/17 at 09:00 Eye Lubricant (Artificial Tears Oph) 2 drop BID BOTH EYES Last administered on 03/23/17 09:13; Admin Dose 2 DROP; Start 03/20/17 at 21:00 Docusate Sodium (Colace) 250 mg QHS PO Last administered on 03/21/17 21:04; Admin Dose 250 MG; Start 03/20/17 at 21:00 Escitalopram Oxalate (Lexapro) 10 mg QAM PO Last administered on 03/23/17 09: 14; Admin Dose 10 MG; Start 03/21/17 at 09:00 EZETIMIBE (Zetia) 10 mg DAILY PO Last administered on 03/23/17 09:13; Admin Dose 10 MG; Start 03/21/17 at 09:00 Furosemide (Lasix) 20 mg DAILY PO Last administered on 03/23/17 09:14; Admin Dose 20 MG; Start 03/21/17 at 09:00 Lorazepam (Ativan) 0.5 mg HS PRN PO ANXIETY; Start 03/20/17 at 19:00 Metoprolol Tartrate (Lopressor) 25 mg BID PO Last administered on 03/23/17 09: 14; Admin Dose 25 MG; Start 03/20/17 at 21:00 Senna (Senokot) 1 tab DAILY PRN PO PRN; Start 03/20/17 at 19:00 Atorvastatin Calcium (Lipitor) 10 mg DAILY@21 PO Last administered on 21:03; Admin Dose 10 MG; Start 03/20/17 at 21:00 Miscellaneous Information 1 ea NOTE XX ; Start 03/20/17 at 19:30 Glucose (Glutose) 15 gm Q15M PRN PO DECREASED GLUCOSE; Start 03/20/17 at 19:30 Glucose (Glutose) 22.5 gm Q15M PRN PO DECREASED GLUCOSE; Start 03/20/17 at 19: 30 Dextrose (D50w Syringe) 25 ml Q15M PRN IV DECREASED GLUCOSE; Start 03/20/17 at 19:30 Dextrose (D50w Syringe) 50 ml Q15M PRN IV DECREASED GLUCOSE; Start 03/20/17 at 19:30 Glucagon (Glucagen) 1 mg Q15M PRN IM DECREASED GLUCOSE; Start 03/20/17 at 19:30 Glucose (Glutose) 15 gm Q15M PRN BUCCAL DECREASED GLUCOSE; Start 03/20/17 at 19 :30 RON MORRIS NP March 23, 2017 11:33 RON MORRIS NP March 23, 2017 11:33
[2017-03-23] MEDS ORDERED: hydrALAzine 20 MG INJ IV PRN (12:00)
[2017-03-23] MEDS: NS + KCL 20 MEQ 1,000 ML IV SCH (13:50)
[2017-03-23] MEDS: DOCUSATE SODIUM 250 MG CAP PO SCH (21:13)
[2017-03-23] MEDS: ATORVASTATIN 10 MG TAB PO SCH (21:13)
[2017-03-23] MEDS: POLYETHYLENE GLYCOL 17 GM PACKET PO SCH (21:15)
[2017-03-24] VITALS (14 sets, daily range): BP systolic 125–175; BP diastolic 63–94; PULSE 74–176; RESP 18
[2017-03-24] MEDS: NS + KCL 20 MEQ 1,000 ML IV SCH ×2 (06:02→20:53)
[2017-03-24 07:52] LABS: ADD SCAN DIFF NO
[2017-03-24] MEDS: INSULIN ASPART [NOVOLOG] 3 ML PEN SC SCH ×4 (08:00→20:43)
[2017-03-24 08:10] LABS: BASOPHIL # 0.1 10^3/ul (0.0-0.1); BASOPHILS % 0.6 % (0.0-2.0); EOSINOPHILS # 0.3 10^3/ul (0.0-0.5); EOSINOPHILS % 3.9 % (0.0-7.0); HEMATOCRIT 32.1 % (37.0-47.0); HEMOGLOBIN 10.2 g/dl (12.0-16.0); LYMPHOCYTES # 2.6 10^3/ul (0.8-2.9); LYMPHOCYTES % 31.2 % (15.0-51.0); MEAN CORPUSCULAR HEMOGLOBIN 30.9 pg (29.0-33.0); MEAN CORPUSCULAR HGB CONC 31.8 g/dl (32.0-37.0); MEAN CORPUSCULAR VOLUME 97.3 fl (82.0-101.0); MEAN PLATELET VOLUME 12.6 fl (7.4-10.4); MONOCYTE # 0.7 10^3/ul (0.3-0.9); MONOCYTES % 7.9 % (0.0-11.0); NEUTROPHIL # 4.7 10^3/ul (1.6-7.5); NEUTROPHILS % 55.8 % (39.0-77.0); PLATELET COUNT 192 10^3/UL (140-415); RED CELL DISTRIBUTION WIDTH 13.2 % (11.5-14.5); WHITE BLOOD COUNT 8.4 10^3/ul (4.8-10.8)
[2017-03-24 08:24] LABS: POTASSIUM 3.7 mmol/L (3.5-5.1)
[2017-03-24 08:25] LABS: MAGNESIUM 1.2 mg/dl (1.7-2.5); PHOSPHORUS 2.3 mg/dl (2.5-4.9)
[2017-03-24 08:26] LABS: CREATININE 0.48 mg/dl (0.44-1.00)
[2017-03-24 08:27] LABS: CALCIUM 7.1 mg/dl (8.4-10.2)
[2017-03-24] MEDS: POLYETHYLENE GLYCOL 17 GM PACKET PO SCH ×2 (12:25→20:53)
[2017-03-24] MEDS: ARTIFICIAL TEARS 15 ML OPH BOTH EYES SCH ×2 (12:26→20:45)
[2017-03-24] MEDS: FUROSEMIDE 20 MG TAB PO SCH (12:26)
[2017-03-24] MEDS: FAMOTIDINE 20 MG TAB PO SCH ×2 (12:26→20:46)
[2017-03-24] MEDS: ESCITALOPRAM 10 MG TAB PO SCH (12:26)
[2017-03-24] MEDS: METOPROLOL 25 MG TAB PO SCH ×2 (12:27→20:54)
[2017-03-24] MEDS: EZETIMIBE 10 MG TAB PO SCH (12:28)
[2017-03-24] MEDS: CILOSTAZOL 100 MG TAB PO SCH (12:28)
[2017-03-24] MEDS: ENOXAPARIN 40 MG/0.4 ML SYG SC SCH (12:30)
--- NOTE | 2017-03-24 15:02 | PN ---
Date/Time of Note Date/Time of Note DATE: 03/24/17 TIME: 14:49 Assessment/Plan VTE Prophylaxis VTE Prophylaxis Intervention: LMWH Lines/Catheters IV C[facility]ter Type (from [facility]): Peripheral IV Urinary Cath still in place: No Assessment/Plan Assessment/Plan 1. Hypomagnesemia, MgSO4 2. Dehydration, improved 3. Dysphagia. Status post with therapy evaluation per speech therapy recommended a video swallow eval. Video swallow evaluation ordered. 4. Essential hypertension. start lisinopril 03/24/2017 5. Dyslipidemia. Continue statins. 6. Type 2 diabetes mellitus. The patient was continued on sliding scale insulin. Hemoglobin A1c 6.4. 7. History of congestive heart failure. sr-table 8. DVT prophylaxis. Subcutaneous Lovenox. Exam/Review of Systems Vital Signs Vitals Vital Signs Date Time Temp Pulse Resp B/P Pulse Ox O2 Delivery O2 Flow Rate FiO2 03/24/17 11:40 98.0 91 18 175/94 95 03/21/17 21:02 Room Air Intake and Output 03/23/17 03/23/17 03/24/17 15:00 23:00 07:00 Intake Total 1520 ml 280 ml Balance 1520 ml 280 ml Results Result Diagram: 03/24/17 0650 03/24/17 0650 Results 24 hrs Laboratory Tests Test 03/23/17 17:55 03/23/17 21:11 03/24/17 06:50 03/24/17 08:38 Bedside Glucose 142 125 114 White Blood Count 8.4 Red Blood Count 3.30 L Hemoglobin 10.2 L Hematocrit 32.1 L Mean Corpuscular Volume 97.3 Mean Corpuscular Hemoglobin 30.9 Mean Corpuscular Hemoglobin Concent 31.8 L Red Cell Distribution Width 13.2 Platelet Count 192 # Mean Platelet Volume 12.6 H Neutrophils % 55.8 Lymphocytes % 31.2 Monocytes % 7.9 Eosinophils % 3.9 Basophils % 0.6 Nucleated Red Blood Cells % 0.0 Neutrophils # 4.7 Lymphocytes # 2.6 Monocytes # 0.7 Eosinophils # 0.3 Basophils # 0.1 Nucleated Red Blood Cells # 0.0 Sodium Level 140 Potassium Level 3.7 Chloride Level 104 Carbon Dioxide Level 27 Anion Gap 13 Blood Urea Nitrogen 8 Creatinine 0.48 Glucose Level 106 Calcium Level 7.1 L Phosphorus Level 2.3 L Magnesium Level 1.2 L Medications Medications Current Medications Potassium Chloride/Sodium Chloride (NS-KCl 20 Meq) 1,000 ml @ 60 mls/hr [id number] IV Last administered on 03/24/17 06:02; Admin Dose 60 MLS/HR; Start at 18:50 Lorazepam (Ativan) 0.5 mg Q6H PRN IV ANXIETY; Start 03/20/17 at 19:00 Ondansetron HCl (Zofran Inj) 4 mg Q6H PRN IV NAUSEA AND/OR VOMITING; Start at 19:00 Acetaminophen (Tylenol Tab) 650 mg Q6H PRN PO PAIN LEVEL 1-3 OR FEVER; Start at 19:00 Acetaminophen/ Hydrocodone Bitart ([place] (5/325)) 1 tab Q6H PRN PO PAIN LEVEL 4 -6 Last administered on 03/21/17 16:39; Admin Dose 1 TAB; Start 03/20/17 at 19: 00 Morphine Sulfate (morphine) 2 mg Q4H PRN IV PAIN LEVEL 7-10; Start 03/20/17 at 19:00 Magnesium Hydroxide (Milk Of Mag) 30 ml DAILY PRN PO CONSTIPATION; Start at 19:00 Bisacodyl (Dulcolax) 5 mg DAILY PRN PO CONSTIPATION; Start 03/20/17 at 19:00 Famotidine (Pepcid) 20 mg Q12 PO Last administered on 03/24/17 12:26; Admin Dose 20 MG; Start 03/20/17 at 21:00 Enoxaparin Sodium (Lovenox) 40 mg DAILY SC Last administered on 03/24/17 12:30 ; Admin Dose 40 MG; Start 03/21/17 at 09:00 Cilostazol (Pletal) 100 mg DAILY PO Last administered on 03/24/17 12:28; Admin Dose 100 MG; Start 03/21/17 at 09:00 Eye Lubricant (Artificial Tears Oph) 2 drop BID BOTH EYES Last administered on 03/24/17 12:26; Admin Dose 2 DROP; Start 03/20/17 at 21:00 Docusate Sodium (Colace) 250 mg QHS PO Last administered on 03/23/17 21:13; Admin Dose 250 MG; Start 03/20/17 at 21:00 Escitalopram Oxalate (Lexapro) 10 mg QAM PO Last administered on 03/24/17 12: 26; Admin Dose 10 MG; Start 03/21/17 at 09:00 EZETIMIBE (Zetia) 10 mg DAILY PO Last administered on 03/24/17 12:28; Admin Dose 10 MG; Start 03/21/17 at 09:00 Furosemide (Lasix) 20 mg DAILY PO Last administered on 03/24/17 12:26; Admin Dose 20 MG; Start 03/21/17 at 09:00 Lorazepam (Ativan) 0.5 mg HS PRN PO ANXIETY; Start 03/20/17 at 19:00 Metoprolol Tartrate (Lopressor) 25 mg BID PO Last administered on 03/24/17 12: 27; Admin Dose 25 MG; Start 03/20/17 at 21:00 Senna (Senokot) 1 tab DAILY PRN PO PRN; Start 03/20/17 at 19:00 Atorvastatin Calcium (Lipitor) 10 mg DAILY@21 PO Last administered on 21:13; Admin Dose 10 MG; Start 03/20/17 at 21:00 Miscellaneous Information 1 ea NOTE XX ; Start 03/20/17 at 19:30 Glucose (Glutose) 15 gm Q15M PRN PO DECREASED GLUCOSE; Start 03/20/17 at 19:30 Glucose (Glutose) 22.5 gm Q15M PRN PO DECREASED GLUCOSE; Start 03/20/17 at 19: 30 Dextrose (D50w Syringe) 25 ml Q15M PRN IV DECREASED GLUCOSE; Start 03/20/17 at 19:30 Dextrose (D50w Syringe) 50 ml Q15M PRN IV DECREASED GLUCOSE; Start 03/20/17 at 19:30 Glucagon (Glucagen) 1 mg Q15M PRN IM DECREASED GLUCOSE; Start 03/20/17 at 19:30 Glucose (Glutose) 15 gm Q15M PRN BUCCAL DECREASED GLUCOSE; Start 03/20/17 at 19 :30 Hydralazine HCl (Apresoline) 10 mg Q6H PRN IV SBP>160; Start 03/23/17 at 12:00 Polyethylene Glycol (Miralax) 17 gm BID PO Last administered on 03/24/17 12:25 ; Admin Dose 17 GM; Start 5/21/17 at 21:00 AARTI LEONG MD March 24, 2017 15:02
[2017-03-24] MEDS ORDERED: MAGNESIUM SULFATE 4 GM/100 ML 100 ML IVPB ONE (17:00)
[2017-03-24] MEDS: LISINOPRIL 10 MG TAB PO SCH (17:09)
[2017-03-24] MEDS ORDERED: DILTIAZEM 25 MG INJ IV PRN (19:30)
[2017-03-24] MEDS: ATORVASTATIN 10 MG TAB PO SCH (20:46)
[2017-03-24] MEDS: DOCUSATE SODIUM 250 MG CAP PO SCH (20:53)
[2017-03-25] VITALS (11 sets, daily range): BP systolic 119–145; BP diastolic 57–94; PULSE 100–123; RESP 16–18
[2017-03-25] MEDS: INSULIN ASPART [NOVOLOG] 3 ML PEN SC SCH ×4 (08:00→21:00)
[2017-03-25] MEDS: ARTIFICIAL TEARS 15 ML OPH BOTH EYES SCH ×3 (09:00→21:58)
[2017-03-25] MEDS: EZETIMIBE 10 MG TAB PO SCH ×2 (09:00→14:40)
[2017-03-25] MEDS: POLYETHYLENE GLYCOL 17 GM PACKET PO SCH ×2 (09:02→21:58)
[2017-03-25] MEDS: CILOSTAZOL 100 MG TAB PO SCH (09:03)
[2017-03-25] MEDS: METOPROLOL 25 MG TAB PO SCH ×2 (09:03→21:58)
[2017-03-25] MEDS: LISINOPRIL 10 MG TAB PO SCH (09:03)
[2017-03-25] MEDS: FUROSEMIDE 20 MG TAB PO SCH (09:04)
[2017-03-25] MEDS: FAMOTIDINE 20 MG TAB PO SCH ×2 (09:04→21:59)
[2017-03-25] MEDS: ESCITALOPRAM 10 MG TAB PO SCH (09:04)
[2017-03-25] MEDS: ENOXAPARIN 40 MG/0.4 ML SYG SC SCH (09:07)
[2017-03-25 11:15] LABS: ADD SCAN DIFF NO
[2017-03-25 11:17] LABS: BASOPHIL # 0.1 10^3/ul (0.0-0.1); BASOPHILS % 0.6 % (0.0-2.0); EOSINOPHILS # 0.3 10^3/ul (0.0-0.5); EOSINOPHILS % 3.4 % (0.0-7.0); HEMOGLOBIN 11.1 g/dl (12.0-16.0); LYMPHOCYTES # 1.8 10^3/ul (0.8-2.9); LYMPHOCYTES % 19.9 % (15.0-51.0); MEAN CORPUSCULAR HGB CONC 31.7 g/dl (32.0-37.0); MEAN CORPUSCULAR VOLUME 97.8 fl (82.0-101.0); MEAN PLATELET VOLUME 11.7 fl (7.4-10.4); MONOCYTE # 0.8 10^3/ul (0.3-0.9); NEUTROPHILS % 66.7 % (39.0-77.0); PLATELET COUNT 289 10^3/UL (140-415); RED BLOOD COUNT 3.58 10^6/ul (4.20-5.40); RED CELL DISTRIBUTION WIDTH 13.4 % (11.5-14.5)
[2017-03-25 11:48] LABS: CALCIUM 8.1 mg/dl (8.4-10.2); CREATININE 0.54 mg/dl (0.44-1.00); MAGNESIUM 2.2 mg/dl (1.7-2.5); POTASSIUM 4.2 mmol/L (3.5-5.1)
--- NOTE | 2017-03-25 14:18 | PN ---
Date/Time of Note Date/Time of Note DATE: 03/25/17 TIME: 14:10 Assessment/Plan VTE Prophylaxis VTE Prophylaxis Intervention: LMWH Lines/Catheters IV Catheter Type (from Nrs): Peripheral IV Urinary Cath still in place: No Assessment/Plan Assessment/Plan 1. Dysphagia. Status post with therapy evaluation per speech therapy recommended a video swallow eval. Video swallow evaluation done this morning, will follow 2. Hypomagnesemia, corrected 3. Dehydration, improved 4. Essential hypertension. start lisinopril 03/24/2017 5. Dyslipidemia. Continue statins. 6. Type 2 diabetes mellitus. The patient was continued on sliding scale insulin. Hemoglobin A1c 6.4. 7. History of congestive heart failure. sr-table 8. DVT prophylaxis. Subcutaneous Lovenox Subjective 24 Hr Interval Summary Free Text/Dictation no distress. finished swallow study, awaiting for report Exam/Review of Systems Vital Signs Vitals Vital Signs Date Time Temp Pulse Resp B/P Pulse Ox O2 Delivery O2 Flow Rate FiO2 03/25/17 14:06 123 03/25/17 11:50 99.2 16 133/70 95 03/21/17 21:02 Room Air Exam Constitutional: alert, oriented, well developed Psych: no complaints Head: atraumatic, normocephalic Eyes: EOMI, PERRL, nl conjunctiva, nl lids ENMT: nl external ears & nose, nl lips & teeth, nl nasal mucosa & septum Neck: non-tender, supple Respiratory: clear to auscultation, normal air movement, No congested cough, No crackles/rales, No diminished breath sounds, No intercostal retraction, No labored breathing, No other, No respirations, No tactile fremitus, No wheezing Cardiovascular: nl pulses, regular rate and rhythm, No S3, No S4, No bruits, No diastolic murmur, No edema, No gallop, No irregular rhythm, No jugular venous distention (JVD), No murmurs/extra sounds, No other, No rub, No systolic murmur Gastrointestinal: nl liver, spleen, non-tender, soft, No ascites, No bowel sounds, No distended, No firm, No hepatomegaly, No mass , No other, No rebound or guarding, No splenomegaly, No surgical scars, No tender Musculoskeletal: nl extremities to inspection Extremities: normal pulses, No calf tenderness, No clubbing, No cyanosis, No edema, No other, No palpable cord, No pitting pedal edema, No tenderness Neurological: [employer]DLE[employer] CONSULTANT II-XII intact, nl mental status, nl speech, nl strength Skin: nl turgor Lymph: nl lymph nodes Results Result Diagram: 03/25/17 1020 03/25/17 1020 Results 24 hrs Laboratory Tests Test 03/24/17 17:07 03/24/17 20:25 03/25/17 08:58 03/25/17 10:20 Bedside Glucose 141 155 126 White Blood Count 9.0 Red Blood Count 3.58 L Hemoglobin 11.1 L Hematocrit 35.0 L Mean Corpuscular Volume 97.8 Mean Corpuscular Hemoglobin 31.0 Mean Corpuscular Hemoglobin Concent 31.7 L Red Cell Distribution Width 13.4 Platelet Count 289 # Mean Platelet Volume 11.7 H Neutrophils % 66.7 Lymphocytes % 19.9 Monocytes % 9.0 Eosinophils % 3.4 Basophils % 0.6 Nucleated Red Blood Cells % 0.0 Neutrophils # 6.0 Lymphocytes # 1.8 Monocytes # 0.8 Eosinophils # 0.3 Basophils # 0.1 Nucleated Red Blood Cells # 0.0 Sodium Level 139 Potassium Level 4.2 Chloride Level 107 Carbon Dioxide Level 28 Anion Gap 8 Blood Urea Nitrogen 8 Creatinine 0.54 Glucose Level 176 Calcium Level 8.1 L Magnesium Level 2.2 # Test 03/25/17 12:15 Bedside Glucose 168 Medications Medications Current Medications Potassium Chloride/Sodium Chloride (NS-KCl 20 Meq) 1,000 ml @ 60 mls/hr [id number] IV Last administered on 03/24/17 20:53; Admin Dose 60 MLS/HR; Start at 18:50 Lorazepam (Ativan) 0.5 mg Q6H PRN IV ANXIETY; Start 03/20/17 at 19:00 Ondansetron HCl (Zofran Inj) 4 mg Q6H PRN IV NAUSEA AND/OR VOMITING; Start at 19:00 Acetaminophen (Tylenol Tab) 650 mg Q6H PRN PO PAIN LEVEL 1-3 OR FEVER; Start at 19:00 Acetaminophen/ Hydrocodone Bitart ([place] (5/325)) 1 tab Q6H PRN PO PAIN LEVEL 4 -6 Last administered on 03/21/17 16:39; Admin Dose 1 TAB; Start 03/20/17 at 19: 00 Morphine Sulfate (morphine) 2 mg Q4H PRN IV PAIN LEVEL 7-10; Start 03/20/17 at 19:00 Magnesium Hydroxide (Milk Of Mag) 30 ml DAILY PRN PO CONSTIPATION; Start at 19:00 Bisacodyl (Dulcolax) 5 mg DAILY PRN PO CONSTIPATION; Start 03/20/17 at 19:00 Famotidine (Pepcid) 20 mg Q12 PO Last administered on 03/25/17 09:04; Admin Dose 20 MG; Start 03/20/17 at 21:00 Enoxaparin Sodium (Lovenox) 40 mg DAILY SC Last administered on 03/25/17 09:07 ; Admin Dose 40 MG; Start 03/21/17 at 09:00 Cilostazol (Pletal) 100 mg DAILY PO Last administered on 03/25/17 09:03; Admin Dose 100 MG; Start 03/21/17 at 09:00 Eye Lubricant (Artificial Tears Oph) 2 drop BID BOTH EYES Last administered on 03/24/17 20:45; Admin Dose 2 DROP; Start 03/20/17 at 21:00 Docusate Sodium (Colace) 250 mg QHS PO Last administered on 03/24/17 20:53; Admin Dose 250 MG; Start 03/20/17 at 21:00 Escitalopram Oxalate (Lexapro) 10 mg QAM PO Last administered on 03/25/17 09: 04; Admin Dose 10 MG; Start 03/21/17 at 09:00 EZETIMIBE (Zetia) 10 mg DAILY PO Last administered on 03/24/17 12:28; Admin Dose 10 MG; Start 03/21/17 at 09:00 Furosemide (Lasix) 20 mg DAILY PO Last administered on 03/25/17 09:04; Admin Dose 20 MG; Start 03/21/17 at 09:00 Lorazepam (Ativan) 0.5 mg HS PRN PO ANXIETY Last administered on 03/24/17 20: 55; Admin Dose 0.5 MG; Start 03/20/17 at 19:00 Metoprolol Tartrate (Lopressor) 25 mg BID PO Last administered on 03/25/17 09: 03; Admin Dose 25 MG; Start 03/20/17 at 21:00 Senna (Senokot) 1 tab DAILY PRN PO PRN; Start 03/20/17 at 19:00 Atorvastatin Calcium (Lipitor) 10 mg DAILY@21 PO Last administered on 20:46; Admin Dose 10 MG; Start 03/20/17 at 21:00 Miscellaneous Information 1 ea NOTE XX ; Start 03/20/17 at 19:30 Glucose (Glutose) 15 gm Q15M PRN PO DECREASED GLUCOSE; Start 03/20/17 at 19:30 Glucose (Glutose) 22.5 gm Q15M PRN PO DECREASED GLUCOSE; Start 03/20/17 at 19: 30 Dextrose (D50w Syringe) 25 ml Q15M PRN IV DECREASED GLUCOSE; Start 03/20/17 at 19:30 Dextrose (D50w Syringe) 50 ml Q15M PRN IV DECREASED GLUCOSE; Start 03/20/17 at 19:30 Glucagon (Glucagen) 1 mg Q15M PRN IM DECREASED GLUCOSE; Start 03/20/17 at 19:30 Glucose (Glutose) 15 gm Q15M PRN BUCCAL DECREASED GLUCOSE; Start 03/20/17 at 19 :30 Hydralazine HCl (Apresoline) 10 mg Q6H PRN IV SBP>160; Start 03/23/17 at 12:00 Polyethylene Glycol (Miralax) 17 gm BID PO Last administered on 03/25/17 09:02 ; Admin Dose 17 GM; Start 03/23/17 at 21:00 Lisinopril (Zestril) 10 mg DAILY PO Last administered on 03/25/17 09:03; Admin Dose 10 MG; Start 03/24/17 at 15:00 AARTI LEONG MD March 25, 2017 14:18
[2017-03-25] MEDS: NS + KCL 20 MEQ 1,000 ML IV SCH (15:30)
--- NOTE | 2017-03-25 18:24 | RADRPT ---
PROCEDURE: Video-fluoroscopy swallowing study. CLINICAL INDICATION: Dysphagia. TECHNIQUE: Fluoroscopic guided video swallowing study was done in conjunction with the speech ther apist. The study was confined to the oral, pharyngeal, and cervical phases of the swallowing mechani sm. 2.0 minutes of fluoroscopy time was used. COMPARISON: No prior study is available for comparison. FINDINGS: There is no evidence of aspiration during the exam. 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 IMPRESSION: 1. No aspiration during swallowing. Large cricopharyngeal bar. 2. Please refer to the speech therapist's recommendations for future feedings. RPTAT: QQ .Larry Marsh MD, MD Date Time Electronically viewed and signed by .Larry Marsh MD, on 03/25/2017 18:23 .R/
[2017-03-25] MEDS: DOCUSATE SODIUM 250 MG CAP PO SCH (21:58)
[2017-03-25] MEDS: ATORVASTATIN 10 MG TAB PO SCH (21:58)
[2017-03-26] VITALS (12 sets, daily range): BP systolic 121–146; BP diastolic 58–81; PULSE 74–117; RESP 16–19
[2017-03-26] MEDS: NS + KCL 20 MEQ 1,000 ML IV SCH ×2 (04:38→22:05)
[2017-03-26] MEDS: INSULIN ASPART [NOVOLOG] 3 ML PEN SC SCH ×4 (08:00→21:00)
[2017-03-26] MEDS: POLYETHYLENE GLYCOL 17 GM PACKET PO SCH ×2 (08:33→21:56)
[2017-03-26] MEDS: EZETIMIBE 10 MG TAB PO SCH (08:34)
[2017-03-26] MEDS: ARTIFICIAL TEARS 15 ML OPH BOTH EYES SCH ×2 (08:34→21:56)
[2017-03-26] MEDS: LISINOPRIL 10 MG TAB PO SCH (08:34)
[2017-03-26] MEDS: ESCITALOPRAM 10 MG TAB PO SCH (08:34)
[2017-03-26] MEDS: CILOSTAZOL 100 MG TAB PO SCH (08:34)
[2017-03-26] MEDS: METOPROLOL 25 MG TAB PO SCH ×2 (08:35→21:56)
[2017-03-26] MEDS: FAMOTIDINE 20 MG TAB PO SCH ×2 (08:35→21:56)
[2017-03-26] MEDS: FUROSEMIDE 20 MG TAB PO SCH (08:35)
[2017-03-26] MEDS: ENOXAPARIN 40 MG/0.4 ML SYG SC SCH (08:48)
--- NOTE | 2017-03-26 14:45 | PN ---
Date/Time of Note Date/Time of Note DATE: 03/26/17 TIME: 14:40 Assessment/Plan VTE Prophylaxis VTE Prophylaxis Intervention: LMWH Lines/Catheters IV Catheter Type (from Nrs): Peripheral IV Urinary Cath still in place: No Assessment/Plan Assessment/Plan 1. Large cricopharyngea bar with dysphagia. GI consult 2. Hypomagnesemia, corrected 3. Dehydration, improved 4. Essential hypertension. start lisinopril 03/24/2017 5. Dyslipidemia. Continue statins. 6. Type 2 diabetes mellitus. The patient was continued on sliding scale insulin. Hemoglobin A1c 6.4. 7. History of congestive heart failure. sr-table 8. DVT prophylaxis. Subcutaneous Lovenox Subjective 24 Hr Interval Summary Free Text/Dictation no event. no distress Exam/Review of Systems Vital Signs Vitals Vital Signs Date Time Temp Pulse Resp B/P Pulse Ox O2 Delivery O2 Flow Rate FiO2 03/26/17 12:00 78 03/26/17 11:48 97.8 16 133/66 93 Intake and Output 03/25/17 03/25/17 03/26/17 15:00 23:00 07:00 Intake Total 750 ml 150 ml Balance 750 ml 150 ml Exam Constitutional: alert, oriented, well developed Psych: nl mood/affect, no complaints Head: atraumatic, normocephalic Eyes: EOMI, PERRL, nl conjunctiva, nl lids ENMT: nl external ears & nose, nl lips & teeth, nl nasal mucosa & septum Neck: non-tender, supple Respiratory: clear to auscultation, normal air movement, No congested cough, No crackles/rales, No diminished breath sounds, No intercostal retraction, No labored breathing, No other, No respirations, No tactile fremitus, No wheezing Cardiovascular: nl pulses, regular rate and rhythm, No S3, No S4, No bruits, No diastolic murmur, No edema, No gallop, No irregular rhythm, No jugular venous distention (JVD), No murmurs/extra sounds, No other, No rub, No systolic murmur Gastrointestinal: nl liver, spleen, non-tender, soft, No ascites, No bowel sounds, No distended, No firm, No hepatomegaly, No mass , No other, No rebound or guarding, No splenomegaly, No surgical scars, No tender Musculoskeletal: nl extremities to inspection Extremities: normal pulses, No calf tenderness, No clubbing, No cyanosis, No edema, No other, No palpable cord, No pitting pedal edema, No tenderness Neurological: MEMBERSHIP ADMINISTRATOR II-XII intact, nl mental status, nl speech, nl strength Skin: nl turgor Lymph: nl lymph nodes Results Result Diagram: 03/25/17 1020 03/25/17 1020 Results 24 hrs Laboratory Tests Test 03/25/17 17:23 03/25/17 21:52 03/26/17 07:47 03/26/17 11:50 Bedside Glucose 122 130 102 139 Medications Medications Current Medications Potassium Chloride/Sodium Chloride (NS-KCl 20 Meq) 1,000 ml @ 60 mls/hr [id number] IV Last administered on 03/26/17 04:38; Admin Dose 60 MLS/HR; Start at 18:50 Lorazepam (Ativan) 0.5 mg Q6H PRN IV ANXIETY; Start 03/20/17 at 19:00 Ondansetron HCl (Zofran Inj) 4 mg Q6H PRN IV NAUSEA AND/OR VOMITING; Start at 19:00 Acetaminophen (Tylenol Tab) 650 mg Q6H PRN PO PAIN LEVEL 1-3 OR FEVER; Start at 19:00 Acetaminophen/ Hydrocodone Bitart ([place] (5/325)) 1 tab Q6H PRN PO PAIN LEVEL 4 -6 Last administered on 03/21/17 16:39; Admin Dose 1 TAB; Start 03/20/17 at 19: 00 Morphine Sulfate (morphine) 2 mg Q4H PRN IV PAIN LEVEL 7-10; Start 03/20/17 at 19:00 Magnesium Hydroxide (Milk Of Mag) 30 ml DAILY PRN PO CONSTIPATION; Start at 19:00 Bisacodyl (Dulcolax) 5 mg DAILY PRN PO CONSTIPATION; Start 03/20/17 at 19:00 Famotidine (Pepcid) 20 mg Q12 PO Last administered on 03/26/17 08:35; Admin Dose 20 MG; Start 03/20/17 at 21:00 Enoxaparin Sodium (Lovenox) 40 mg DAILY SC Last administered on 03/26/17 08:48 ; Admin Dose 40 MG; Start 03/21/17 at 09:00 Cilostazol (Pletal) 100 mg DAILY PO Last administered on 03/26/17 08:34; Admin Dose 100 MG; Start 03/21/17 at 09:00 Eye Lubricant (Artificial Tears Oph) 2 drop BID BOTH EYES Last administered on 03/26/17 08:34; Admin Dose 2 DROP; Start 03/20/17 at 21:00 Docusate Sodium (Colace) 250 mg QHS PO Last administered on 03/25/17 21:58; Admin Dose 250 MG; Start 03/20/17 at 21:00 Escitalopram Oxalate (Lexapro) 10 mg QAM PO Last administered on 03/26/17 08: 34; Admin Dose 10 MG; Start 03/21/17 at 09:00 EZETIMIBE (Zetia) 10 mg DAILY PO Last administered on 03/26/17 08:34; Admin Dose 10 MG; Start 03/21/17 at 09:00 Furosemide (Lasix) 20 mg DAILY PO Last administered on 03/26/17 08:35; Admin Dose 20 MG; Start 03/21/17 at 09:00 Lorazepam (Ativan) 0.5 mg HS PRN PO ANXIETY Last administered on 03/24/17 20: 55; Admin Dose 0.5 MG; Start 03/20/17 at 19:00 Metoprolol Tartrate (Lopressor) 25 mg BID PO Last administered on 03/26/17 08: 35; Admin Dose 25 MG; Start 03/20/17 at 21:00 Senna (Senokot) 1 tab DAILY PRN PO PRN; Start 03/20/17 at 19:00 Atorvastatin Calcium (Lipitor) 10 mg DAILY@21 PO Last administered on 21:58; Admin Dose 10 MG; Start 03/20/17 at 21:00 Miscellaneous Information 1 ea NOTE XX ; Start 03/20/17 at 19:30 Glucose (Glutose) 15 gm Q15M PRN PO DECREASED GLUCOSE; Start 03/20/17 at 19:30 Glucose (Glutose) 22.5 gm Q15M PRN PO DECREASED GLUCOSE; Start 03/20/17 at 19: 30 Dextrose (D50w Syringe) 25 ml Q15M PRN IV DECREASED GLUCOSE; Start 03/20/17 at 19:30 Dextrose (D50w Syringe) 50 ml Q15M PRN IV DECREASED GLUCOSE; Start 03/20/17 at 19:30 Glucagon (Glucagen) 1 mg Q15M PRN IM DECREASED GLUCOSE; Start 03/20/17 at 19:30 Glucose (Glutose) 15 gm Q15M PRN BUCCAL DECREASED GLUCOSE; Start 03/20/17 at 19 :30 Hydralazine HCl (Apresoline) 10 mg Q6H PRN IV SBP>160; Start 03/23/17 at 12:00 Polyethylene Glycol (Miralax) 17 gm BID PO Last administered on 03/26/17 08:33 ; Admin Dose 17 GM; Start 03/23/17 at 21:00 Lisinopril (Zestril) 10 mg DAILY PO Last administered on 03/26/17 08:34; Admin Dose 10 MG; Start 03/24/17 at 15:00 AARTI LEONG MD March 26, 2017 14:44
--- NOTE | 2017-03-26 15:42 | CONS ---
Date/Time of Note Date/Time of Note DATE: 03/26/17 TIME: 15:30 Assessment/Plan Assessment/Plan Additional Assessment/Plan Assessment * Dysphagia Speech modified barium swallow No aspiration during swallowing. Large cricopharyngeal bar. * Diabetes mellitus * Hypertension Plan * continue present diet recommendations * referral to ENT for evaluation * will follow up Consultation Date/Type/Reason Admit Date/Time March 22, 2017 at 11:38 Date of Consultation: March 26, 2017 Type of Consultation: Gastroenterology Reason for Consultation dysphagia Referring Provider: AARTI LEONG MD Hx of Present Illness *6 year old female with past medical history of hypertension,diabetes mellitus who was brought to emergency room because of poor appetite and inability to eat and drink.Patient claims to have dysphagia for the past 2 months which gradually progressed .Patient claims to have difficulty of swallowing solids bur liquids is fine.She denied any history of trauma, abdominal pain nause and vomiting.Patient was subsequently admitted.a video swallow evaluation performed revealed No aspiration during swallowing. Large cricopharyngeal bar.. Please refer to the speech therapist's recommendations for future feedings. .Presently patient is able to drink but unable to eat solids Constitutional: improved, no complaints Eyes: no complaints ENT: no complaints Respiratory: no complaints Cardiovascular: no complaints Gastrointestinal: no complaints Genitourinary: no complaints Musculoskeletal: no complaints Skin: no complaints Neurologic: no complaints Endocrine: no complaints Lymphatic: no complaints Psychological: nl mood/affect, no complaints Immunologic: no complaints Past Medical History Medical History: congestive heart failure, coronary artery disease, diabetes Past Surgical History Past Surgical Hx: no surgical history Family History Significant Family History: no pertinent family hx Social History Smoking Status: Never smoker Exam/Review of Systems Vital Signs Vitals Vital Signs Date Time Temp Pulse Resp B/P Pulse Ox O2 Delivery O2 Flow Rate FiO2 03/26/17 12:00 78 03/26/17 11:48 97.8 16 133/66 93 Intake and Output 03/25/17 03/25/17 03/26/17 15:00 23:00 07:00 Intake Total 750 ml 150 ml Balance 750 ml 150 ml Exam Constitutional: alert, oriented, well developed Psych: nl mood/affect, no complaints Head: atraumatic, normocephalic Eyes: EOMI, PERRL, nl conjunctiva, nl lids, nl sclera ENMT: nl external ears & nose, nl lips & teeth, nl nasal mucosa & septum Neck: non-tender, supple Respiratory: clear to auscultation, normal air movement Cardiovascular: nl pulses, regular rate and rhythm Gastrointestinal: nl liver, spleen, non-tender, soft Musculoskeletal: nl extremities to inspection, nl gait and stance Extremities: normal pulses Neurological: JAVA WEB ENGINEER II-XII intact, nl mental status, nl speech, nl strength Skin: nl turgor, No rash or lesions Lymph: nl lymph nodes Results Result Diagram: 03/25/17 1020 03/25/17 1020 Results 24 hrs Laboratory Tests Test 03/25/17 17:23 03/25/17 21:52 03/26/17 07:47 03/26/17 11:50 Bedside Glucose 122 130 102 139 Medications Medications Current Medications Potassium Chloride/Sodium Chloride (NS-KCl 20 Meq) 1,000 ml @ 60 mls/hr [id number] IV Last administered on 03/26/17 04:38; Admin Dose 60 MLS/HR; Start at 18:50 Lorazepam (Ativan) 0.5 mg Q6H PRN IV ANXIETY; Start 03/20/17 at 19:00 Ondansetron HCl (Zofran Inj) 4 mg Q6H PRN IV NAUSEA AND/OR VOMITING; Start at 19:00 Acetaminophen (Tylenol Tab) 650 mg Q6H PRN PO PAIN LEVEL 1-3 OR FEVER; Start at 19:00 Acetaminophen/ Hydrocodone Bitart ([place] (5/325)) 1 tab Q6H PRN PO PAIN LEVEL 4 -6 Last administered on 03/21/17 16:39; Admin Dose 1 TAB; Start 03/20/17 at 19: 00 Morphine Sulfate (morphine) 2 mg Q4H PRN IV PAIN LEVEL 7-10; Start 03/20/17 at 19:00 Magnesium Hydroxide (Milk Of Mag) 30 ml DAILY PRN PO CONSTIPATION; Start at 19:00 Bisacodyl (Dulcolax) 5 mg DAILY PRN PO CONSTIPATION; Start 03/20/17 at 19:00 Famotidine (Pepcid) 20 mg Q12 PO Last administered on 03/26/17 08:35; Admin Dose 20 MG; Start 03/20/17 at 21:00 Enoxaparin Sodium (Lovenox) 40 mg DAILY SC Last administered on 03/26/17 08:48 ; Admin Dose 40 MG; Start 03/21/17 at 09:00 Cilostazol (Pletal) 100 mg DAILY PO Last administered on 03/26/17 08:34; Admin Dose 100 MG; Start 03/21/17 at 09:00 Eye Lubricant (Artificial Tears Oph) 2 drop BID BOTH EYES Last administered on 03/26/17 08:34; Admin Dose 2 DROP; Start 03/20/17 at 21:00 Docusate Sodium (Colace) 250 mg QHS PO Last administered on 03/25/17 21:58; Admin Dose 250 MG; Start 03/20/17 at 21:00 Escitalopram Oxalate (Lexapro) 10 mg QAM PO Last administered on 03/26/17 08: 34; Admin Dose 10 MG; Start 03/21/17 at 09:00 EZETIMIBE (Zetia) 10 mg DAILY PO Last administered on 03/26/17 08:34; Admin Dose 10 MG; Start 03/21/17 at 09:00 Furosemide (Lasix) 20 mg DAILY PO Last administered on 03/26/17 08:35; Admin Dose 20 MG; Start 03/21/17 at 09:00 Lorazepam (Ativan) 0.5 mg HS PRN PO ANXIETY Last administered on 03/24/17 20: 55; Admin Dose 0.5 MG; Start 03/20/17 at 19:00 Metoprolol Tartrate (Lopressor) 25 mg BID PO Last administered on 03/26/17 08: 35; Admin Dose 25 MG; Start 03/20/17 at 21:00 Senna (Senokot) 1 tab DAILY PRN PO PRN; Start 03/20/17 at 19:00 Atorvastatin Calcium (Lipitor) 10 mg DAILY@21 PO Last administered on 21:58; Admin Dose 10 MG; Start 03/20/17 at 21:00 Miscellaneous Information 1 ea NOTE XX ; Start 03/20/17 at 19:30 Glucose (Glutose) 15 gm Q15M PRN PO DECREASED GLUCOSE; Start 03/20/17 at 19:30 Glucose (Glutose) 22.5 gm Q15M PRN PO DECREASED GLUCOSE; Start 03/20/17 at 19: 30 Dextrose (D50w Syringe) 25 ml Q15M PRN IV DECREASED GLUCOSE; Start 03/20/17 at 19:30 Dextrose (D50w Syringe) 50 ml Q15M PRN IV DECREASED GLUCOSE; Start 03/20/17 at 19:30 Glucagon (Glucagen) 1 mg Q15M PRN IM DECREASED GLUCOSE; Start 03/20/17 at 19:30 Glucose (Glutose) 15 gm Q15M PRN BUCCAL DECREASED GLUCOSE; Start 03/20/17 at 19 :30 Hydralazine HCl (Apresoline) 10 mg Q6H PRN IV SBP>160; Start 03/23/17 at 12:00 Polyethylene Glycol (Miralax) 17 gm BID PO Last administered on 03/26/17 08:33 ; Admin Dose 17 GM; Start 03/23/17 at 21:00 Lisinopril (Zestril) 10 mg DAILY PO Last administered on 03/26/17 08:34; Admin Dose 10 MG; Start 03/24/17 at 15:00 ROXANNE LEWIS MD March 26, 2017 15:40
[2017-03-26] MEDS: ATORVASTATIN 10 MG TAB PO SCH (21:56)
[2017-03-26] MEDS: DOCUSATE SODIUM 250 MG CAP PO SCH (21:56)
[2017-03-27] VITALS (11 sets, daily range): BP systolic 134–162; BP diastolic 60–84; PULSE 73–94; RESP 16–20
[2017-03-27] MEDS: INSULIN ASPART [NOVOLOG] 3 ML PEN SC SCH ×4 (08:00→20:39)
[2017-03-27] MEDS: ESCITALOPRAM 10 MG TAB PO SCH (09:13)
[2017-03-27] MEDS: CILOSTAZOL 100 MG TAB PO SCH (09:13)
[2017-03-27] MEDS: EZETIMIBE 10 MG TAB PO SCH (09:13)
[2017-03-27] MEDS: FAMOTIDINE 20 MG TAB PO SCH ×2 (09:13→20:37)
[2017-03-27] MEDS: POLYETHYLENE GLYCOL 17 GM PACKET PO SCH ×2 (09:13→20:38)
[2017-03-27] MEDS: FUROSEMIDE 20 MG TAB PO SCH (09:13)
[2017-03-27] MEDS: LISINOPRIL 10 MG TAB PO SCH (09:14)
[2017-03-27] MEDS: METOPROLOL 25 MG TAB PO SCH ×2 (09:14→20:38)
[2017-03-27] MEDS: ENOXAPARIN 40 MG/0.4 ML SYG SC SCH (09:29)
[2017-03-27] MEDS: ARTIFICIAL TEARS 15 ML OPH BOTH EYES SCH ×2 (09:30→20:43)
--- NOTE | 2017-03-27 12:43 | HP ---
DATE OF ADMISSION: 03/22/2017 HISTORY OF PRESENT ILLNESS: Madalyn Taylor is an 86-year-old female with history significant for admission to [facility] 1 week ago with inability to get down solids or fluids for 3 days. She ended up with a video swallow done by the speech pathologist 2 days ago and that r evealed a large cricopharyngeal bar. ENT was consulted to evaluate this. At this point, she can ge t down fluids, but she cannot get down solids. PAST MEDICAL HISTORY: Congestive heart failure, cellulitis of left lower extremity, type 2 diabetes , gallstones, hypertension, hyperlipidemia, spinal stenosis, depression. PAST SURGICAL HISTORY: Noncontributory. ALLERGIES: NO KNOWN DRUG ALLERGIES. MEDICATIONS: 1. Simvastatin. 2. Lexapro. 3. Lorazepam. 4. Lasix. 5. Zetia. 6. Cilostazol. 7. Lopressor. 8. Metformin. SOCIAL HISTORY: Negative for tobacco, alcohol or drug abuse. FAMILY HISTORY: Negative for any heart, lung, kidney failure, liver disease. REVIEW OF SYSTEMS: A 12-point review of systems otherwise noncontributory. PHYSICAL EXAMINATION: Today, she has an anterior septal deflection inferiorly to the left. Mucosa without erythema or edema. She has no purulent secretions, polyps, infection. Oral cavity an d oropharynx showed tongue, throat, and mouth are normal. Oropharynx is clear. Neck reveals no lym phadenopathy or thyromegaly. Her trachea is midline. The parotids and submandibular glands are wit hout lesion. Endoscopy was then performed through the right nasal cavity. The nasopharynx is clear. The base of tongue is symmetric. The vallecula is open. The vocal cords are moving quite well. There are no lesions. There is no significant postcricoid edema. IMPRESSION: 1. Dysphagia. 2. Deviated septum. 3. Malnutrition. PLAN: At this point, I would involve gastroenterology as it may be possible for them to do an EGD a nd balloon that stenosis open. If that is not something that is feasible, the only thing I can do f rom an ENT standpoint would be a surgical cricopharyngeal myotomy. We will try to avoid that now gi linda the patient's multiple health issues. If there are any questions or concerns, please feel free to reconsult at any time. Dictated By: RICCO BARRIGA/YA Conf#: [id number] DID#: [id number]
--- NOTE | 2017-03-27 14:11 | PN ---
Date/Time of Note Date/Time of Note DATE: 03/27/17 TIME: 14:07 Assessment/Plan VTE Prophylaxis VTE Prophylaxis Intervention: heparin Lines/Catheters IV Catheter Type (from Nrs): Peripheral IV Urinary Cath still in place: No Assessment/Plan Assessment/Plan 1. Large cricopharyngea bar with dysphagia. case discussed with Dr. Aaron and Dr. Steward, will try EGD with balloon dilation 2. Hypomagnesemia, corrected 3. Dehydration, improved 4. Essential hypertension. start lisinopril 03/24/2017 5. Dyslipidemia. Continue statins. 6. Type 2 diabetes mellitus. The patient was continued on sliding scale insulin. Hemoglobin A1c 6.4. 7. History of congestive heart failure. sr-table 8. DVT prophylaxis. Subcutaneous Lovenox Subjective 24 Hr Interval Summary Free Text/Dictation no new complaint Exam/Review of Systems Vital Signs Vitals Vital Signs Date Time Temp Pulse Resp B/P Pulse Ox O2 Delivery O2 Flow Rate FiO2 03/27/17 12:30 73 03/27/17 11:26 98.0 16 139/67 97 Intake and Output 03/26/17 03/26/17 03/27/17 15:00 23:00 07:00 Intake Total 1200 ml 200 ml Balance 1200 ml 200 ml Exam Constitutional: alert, oriented, well developed Head: atraumatic, normocephalic Eyes: EOMI, nl conjunctiva, nl lids ENMT: nl external ears & nose, nl lips & teeth, nl nasal mucosa & septum Neck: non-tender, supple Respiratory: clear to auscultation, normal air movement, No congested cough, No crackles/rales, No diminished breath sounds, No intercostal retraction, No labored breathing, No other, No respirations, No tactile fremitus, No wheezing Cardiovascular: nl pulses, regular rate and rhythm, No S3, No S4, No bruits, No diastolic murmur, No edema, No gallop, No irregular rhythm, No jugular venous distention (JVD), No murmurs/extra sounds, No other, No rub, No systolic murmur Gastrointestinal: nl liver, spleen, non-tender, soft, No ascites, No bowel sounds, No distended, No firm, No hepatomegaly, No mass , No other, No rebound or guarding, No splenomegaly, No surgical scars, No tender Musculoskeletal: nl extremities to inspection Extremities: normal pulses, No calf tenderness, No clubbing, No cyanosis, No edema, No other, No palpable cord, No pitting pedal edema, No tenderness Neurological: MACHINERY ERECTOR II-XII intact, nl mental status, nl speech, nl strength Skin: nl turgor Lymph: nl lymph nodes Results Result Diagram: 03/25/17 1020 03/25/17 1020 Results 24 hrs Laboratory Tests Test 03/26/17 17:30 03/26/17 21:54 03/27/17 07:39 03/27/17 11:37 Bedside Glucose 116 152 108 138 Medications Medications Current Medications Potassium Chloride/Sodium Chloride (NS-KCl 20 Meq) 1,000 ml @ 60 mls/hr [id number] IV Last administered on 03/26/17 22:05; Admin Dose 60 MLS/HR; Start at 18:50 Lorazepam (Ativan) 0.5 mg Q6H PRN IV ANXIETY; Start 03/20/17 at 19:00 Ondansetron HCl (Zofran Inj) 4 mg Q6H PRN IV NAUSEA AND/OR VOMITING; Start at 19:00 Acetaminophen (Tylenol Tab) 650 mg Q6H PRN PO PAIN LEVEL 1-3 OR FEVER; Start at 19:00 Acetaminophen/ Hydrocodone Bitart ([place] (5/325)) 1 tab Q6H PRN PO PAIN LEVEL 4 -6 Last administered on 03/21/17 16:39; Admin Dose 1 TAB; Start 03/20/17 at 19: 00 Morphine Sulfate (morphine) 2 mg Q4H PRN IV PAIN LEVEL 7-10; Start 03/20/17 at 19:00 Magnesium Hydroxide (Milk Of Mag) 30 ml DAILY PRN PO CONSTIPATION; Start at 19:00 Bisacodyl (Dulcolax) 5 mg DAILY PRN PO CONSTIPATION; Start 03/20/17 at 19:00 Famotidine (Pepcid) 20 mg Q12 PO Last administered on 03/27/17 09:13; Admin Dose 20 MG; Start 03/20/17 at 21:00 Enoxaparin Sodium (Lovenox) 40 mg DAILY SC Last administered on 03/27/17 09:29 ; Admin Dose 40 MG; Start 03/21/17 at 09:00 Cilostazol (Pletal) 100 mg DAILY PO Last administered on 03/27/17 09:13; Admin Dose 100 MG; Start 03/21/17 at 09:00 Eye Lubricant (Artificial Tears Oph) 2 drop BID BOTH EYES Last administered on 03/27/17 09:30; Admin Dose 2 DROP; Start 03/20/17 at 21:00 Docusate Sodium (Colace) 250 mg QHS PO Last administered on 03/26/17 21:56; Admin Dose 250 MG; Start 03/20/17 at 21:00 Escitalopram Oxalate (Lexapro) 10 mg QAM PO Last administered on 03/27/17 09: 13; Admin Dose 10 MG; Start 03/21/17 at 09:00 EZETIMIBE (Zetia) 10 mg DAILY PO Last administered on 03/27/17 09:13; Admin Dose 10 MG; Start 03/21/17 at 09:00 Furosemide (Lasix) 20 mg DAILY PO Last administered on 03/27/17 09:13; Admin Dose 20 MG; Start 03/21/17 at 09:00 Lorazepam (Ativan) 0.5 mg HS PRN PO ANXIETY Last administered on 03/24/17 20: 55; Admin Dose 0.5 MG; Start 03/20/17 at 19:00 Metoprolol Tartrate (Lopressor) 25 mg BID PO Last administered on 03/27/17 09: 14; Admin Dose 25 MG; Start 03/20/17 at 21:00 Senna (Senokot) 1 tab DAILY PRN PO PRN; Start 03/20/17 at 19:00 Atorvastatin Calcium (Lipitor) 10 mg DAILY@21 PO Last administered on 21:56; Admin Dose 10 MG; Start 03/20/17 at 21:00 Miscellaneous Information 1 ea NOTE XX ; Start 03/20/17 at 19:30 Glucose (Glutose) 15 gm Q15M PRN PO DECREASED GLUCOSE; Start 03/20/17 at 19:30 Glucose (Glutose) 22.5 gm Q15M PRN PO DECREASED GLUCOSE; Start 03/20/17 at 19: 30 Dextrose (D50w Syringe) 25 ml Q15M PRN IV DECREASED GLUCOSE; Start 03/20/17 at 19:30 Dextrose (D50w Syringe) 50 ml Q15M PRN IV DECREASED GLUCOSE; Start 03/20/17 at 19:30 Glucagon (Glucagen) 1 mg Q15M PRN IM DECREASED GLUCOSE; Start 03/20/17 at 19:30 Glucose (Glutose) 15 gm Q15M PRN BUCCAL DECREASED GLUCOSE; Start 03/20/17 at 19 :30 Hydralazine HCl (Apresoline) 10 mg Q6H PRN IV SBP>160; Start 03/23/17 at 12:00 Polyethylene Glycol (Miralax) 17 gm BID PO Last administered on 03/27/17 09:13 ; Admin Dose 17 GM; Start 03/23/17 at 21:00 Lisinopril (Zestril) 10 mg DAILY PO Last administered on 03/27/17 09:14; Admin Dose 10 MG; Start 03/24/17 at 15:00 AARTI LEONG MD March 27, 2017 14:10
--- NOTE | 2017-03-27 14:46 | PN ---
Date/Time of Note Date/Time of Note DATE: 03/27/17 TIME: 14:40 Assessment/Plan VTE Prophylaxis VTE Prophylaxis Intervention: SCD's Lines/Catheters IV Catheter Type (from Nrsg): Peripheral IV Urinary Cath still in place: No Assessment/Plan Assessment/Plan Dysphagia Speech modified barium swallow No aspiration during swallowing. Large cricopharyngeal bar. * Diabetes mellitus * Hypertension Plan * continue present diet recommendations * EGD and dilation of cricopharyngeal bar risks and benefit explained to patient agreed with planned procedure. Subjective 24 Hr Interval Summary Free Text/Dictation * Course reviewed with RN * patient seen and examined * egd and dilation tomorrow,left message on [employer] Exam/Review of Systems Vital Signs Vitals Vital Signs Date Time Temp Pulse Resp B/P Pulse Ox O2 Delivery O2 Flow Rate FiO2 03/27/17 12:30 73 03/27/17 11:26 98.0 16 139/67 97 Intake and Output 03/26/17 03/26/17 03/27/17 15:00 23:00 07:00 Intake Total 1200 ml 200 ml Balance 1200 ml 200 ml Exam Constitutional: alert, oriented Head: normocephalic Neck: non-tender, supple Respiratory: clear to auscultation, normal air movement Cardiovascular: nl pulses, regular rate and rhythm Gastrointestinal: nl liver, spleen, non-tender, soft Musculoskeletal: nl extremities to inspection Results Result Diagram: 03/25/17 1020 03/25/17 1020 Results 24 hrs Laboratory Tests Test 03/26/17 17:30 03/26/17 21:54 03/27/17 07:39 03/27/17 11:37 Bedside Glucose 116 152 108 138 Medications Medications Current Medications Potassium Chloride/Sodium Chloride (NS-KCl 20 Meq) 1,000 ml @ 60 mls/hr [id number] IV Last administered on 03/26/17t 22:05; Admin Dose 60 MLS/HR; Start at 18:50 Lorazepam (Ativan) 0.5 mg Q6H PRN IV ANXIETY; Start 03/20/17 at 19:00 Ondansetron HCl (Zofran Inj) 4 mg Q6H PRN IV NAUSEA AND/OR VOMITING; Start at 19:00 Acetaminophen (Tylenol Tab) 650 mg Q6H PRN PO PAIN LEVEL 1-3 OR FEVER; Start at 19:00 Acetaminophen/ Hydrocodone Bitart ([place] (5/325)) 1 tab Q6H PRN PO PAIN LEVEL 4 -6 Last administered on 03/21/17 16:39; Admin Dose 1 TAB; Start 03/20/17 at 19: 00 Morphine Sulfate (morphine) 2 mg Q4H PRN IV PAIN LEVEL 7-10; Start 03/20/17 at 19:00 Magnesium Hydroxide (Milk Of Mag) 30 ml DAILY PRN PO CONSTIPATION; Start at 19:00 Bisacodyl (Dulcolax) 5 mg DAILY PRN PO CONSTIPATION; Start 03/20/17 at 19:00 Famotidine (Pepcid) 20 mg Q12 PO Last administered on 03/27/17 09:13; Admin Dose 20 MG; Start 03/20/17 at 21:00 Enoxaparin Sodium (Lovenox) 40 mg DAILY SC Last administered on 03/27/17 09:29 ; Admin Dose 40 MG; Start 03/21/17 at 09:00 Cilostazol (Pletal) 100 mg DAILY PO Last administered on 03/27/17 09:13; Admin Dose 100 MG; Start 03/21/17 at 09:00 Eye Lubricant (Artificial Tears Oph) 2 drop BID BOTH EYES Last administered on 03/27/17 09:30; Admin Dose 2 DROP; Start 03/20/17 at 21:00 Docusate Sodium (Colace) 250 mg QHS PO Last administered on 03/26/17 21:56; Admin Dose 250 MG; Start 03/20/17 at 21:00 Escitalopram Oxalate (Lexapro) 10 mg QAM PO Last administered on 03/27/17 09: 13; Admin Dose 10 MG; Start 03/21/17 at 09:00 EZETIMIBE (Zetia) 10 mg DAILY PO Last administered on 03/27/17 09:13; Admin Dose 10 MG; Start 03/21/17 at 09:00 Furosemide (Lasix) 20 mg DAILY PO Last administered on 03/27/17 09:13; Admin Dose 20 MG; Start 03/21/17 at 09:00 Lorazepam (Ativan) 0.5 mg HS PRN PO ANXIETY Last administered on 03/24/17 20: 55; Admin Dose 0.5 MG; Start 03/20/17 at 19:00 Metoprolol Tartrate (Lopressor) 25 mg BID PO Last administered on 03/27/17 09: 14; Admin Dose 25 MG; Start 03/20/17 at 21:00 Senna (Senokot) 1 tab DAILY PRN PO PRN; Start 03/20/17 at 19:00 Atorvastatin Calcium (Lipitor) 10 mg DAILY@21 PO Last administered on 21:56; Admin Dose 10 MG; Start 03/20/17 at 21:00 Miscellaneous Information 1 ea NOTE XX ; Start 03/20/17 at 19:30 Glucose (Glutose) 15 gm Q15M PRN PO DECREASED GLUCOSE; Start 03/20/17 at 19:30 Glucose (Glutose) 22.5 gm Q15M PRN PO DECREASED GLUCOSE; Start 03/20/17 at 19: 30 Dextrose (D50w Syringe) 25 ml Q15M PRN IV DECREASED GLUCOSE; Start 03/20/17 at 19:30 Dextrose (D50w Syringe) 50 ml Q15M PRN IV DECREASED GLUCOSE; Start 03/20/17 at 19:30 Glucagon (Glucagen) 1 mg Q15M PRN IM DECREASED GLUCOSE; Start 03/20/17 at 19:30 Glucose (Glutose) 15 gm Q15M PRN BUCCAL DECREASED GLUCOSE; Start 03/20/17 at 19 :30 Hydralazine HCl (Apresoline) 10 mg Q6H PRN IV SBP>160; Start 03/23/17 at 12:00 Polyethylene Glycol (Miralax) 17 gm BID PO Last administered on 03/27/17 09:13 ; Admin Dose 17 GM; Start 03/23/17 at 21:00 Lisinopril (Zestril) 10 mg DAILY PO Last administered on 03/27/17 09:14; Admin Dose 10 MG; Start 03/24/17 at 15:00 ROXANNE LEWIS MD March 27, 2017 14:46
[2017-03-27] MEDS: NS + KCL 20 MEQ 1,000 ML IV SCH (16:37)
[2017-03-27] MEDS: DOCUSATE SODIUM 250 MG CAP PO SCH (20:37)
[2017-03-27] MEDS: ATORVASTATIN 10 MG TAB PO SCH (20:37)
[2017-03-28] VITALS (20 sets, daily range): BP systolic 110–166; BP diastolic 48–81; PULSE 66–107; RESP 16–26
[2017-03-28] MEDS: NS + KCL 20 MEQ 1,000 ML IV SCH ×3 (05:30→10:10)
[2017-03-28] MEDS: INSULIN ASPART [NOVOLOG] 3 ML PEN SC SCH ×4 (08:00→20:58)
[2017-03-28] MEDS: FUROSEMIDE 20 MG TAB PO SCH (09:00)
[2017-03-28] MEDS: POLYETHYLENE GLYCOL 17 GM PACKET PO SCH ×2 (09:00→20:54)
[2017-03-28] MEDS: EZETIMIBE 10 MG TAB PO SCH (09:00)
[2017-03-28] MEDS: FAMOTIDINE 20 MG TAB PO SCH (09:00)
[2017-03-28] MEDS: CILOSTAZOL 100 MG TAB PO SCH (09:00)
[2017-03-28] MEDS: LISINOPRIL 10 MG TAB PO SCH (09:00)
[2017-03-28] MEDS: METOPROLOL 25 MG TAB PO SCH ×2 (09:00→20:54)
[2017-03-28] MEDS: ESCITALOPRAM 10 MG TAB PO SCH (09:00)
[2017-03-28] MEDS: ENOXAPARIN 40 MG/0.4 ML SYG SC SCH (09:07)
[2017-03-28] MEDS: ARTIFICIAL TEARS 15 ML OPH BOTH EYES SCH ×2 (09:08→21:01)
[2017-03-28 14:04] LABS: ADD SCAN DIFF NO
[2017-03-28 14:07] LABS: BASOPHILS % 0.6 % (0.0-2.0); EOSINOPHILS # 0.2 10^3/ul (0.0-0.5); EOSINOPHILS % 3.4 % (0.0-7.0); HEMATOCRIT 35.3 % (37.0-47.0); HEMOGLOBIN 11.4 g/dl (12.0-16.0); LYMPHOCYTES # 2.2 10^3/ul (0.8-2.9); LYMPHOCYTES % 31.7 % (15.0-51.0); MEAN CORPUSCULAR HEMOGLOBIN 31.2 pg (29.0-33.0); MEAN CORPUSCULAR HGB CONC 32.3 g/dl (32.0-37.0); MEAN CORPUSCULAR VOLUME 96.7 fl (82.0-101.0); MEAN PLATELET VOLUME 10.1 fl (7.4-10.4); MONOCYTE # 0.8 10^3/ul (0.3-0.9); MONOCYTES % 12.4 % (0.0-11.0); NEUTROPHIL # 3.5 10^3/ul (1.6-7.5); NEUTROPHILS % 50.9 % (39.0-77.0); PLATELET COUNT 268 10^3/UL (140-415); RED BLOOD COUNT 3.65 10^6/ul (4.20-5.40); RED CELL DISTRIBUTION WIDTH 13.4 % (11.5-14.5); WHITE BLOOD COUNT 6.8 10^3/ul (4.8-10.8)
[2017-03-28 14:15] LABS: ALBUMIN 3.1 g/dl (3.3-4.9); ALBUMIN/GLOBULIN RATIO 0.77; BILIRUBIN,INDIRECT 0.1 mg/dl (0-1.1); BILIRUBIN,TOTAL 0.1 mg/dl (0.2-1.3); CALCIUM 9.1 mg/dl (8.4-10.2); CREATININE 0.6 mg/dl (0.44-1.00); POTASSIUM 4.2 mmol/L (3.5-5.1); TOTAL PROTEIN 7.1 g/dl (6.1-8.1)
--- NOTE | 2017-03-28 14:15 | PN ---
Date/Time of Note Date/Time of Note DATE: 03/28/17 TIME: 14:14 Assessment/Plan VTE Prophylaxis VTE Prophylaxis Intervention: LMWH Lines/Catheters IV Catheter Type (from Nrs): Peripheral IV Urinary Cath still in place: No Assessment/Plan Assessment/Plan 1. Large cricopharyngea bar with dysphagia. EGD with balloon dilation today 2. Hypomagnesemia, corrected 3. Dehydration, improved 4. Essential hypertension. start lisinopril 03/24/2017 5. Dyslipidemia. Continue statins. 6. Type 2 diabetes mellitus. The patient was continued on sliding scale insulin. Hemoglobin A1c 6.4. 7. History of congestive heart failure. sr-table 8. DVT prophylaxis. Subcutaneous Lovenox Subjective 24 Hr Interval Summary Free Text/Dictation no pain. no nausea or vomiting Exam/Review of Systems Vital Signs Vitals Vital Signs Date Time Temp Pulse Resp B/P Pulse Ox O2 Delivery O2 Flow Rate FiO2 03/28/17 12:22 93 03/28/17 11:17 97.8 18 117/56 98 Intake and Output 03/27/17 03/27/17 03/28/17 15:00 23:00 07:00 Intake Total 1000 ml 870 ml Balance 1000 ml 870 ml Exam Constitutional: alert, oriented, well developed Psych: nl mood/affect, no complaints Head: atraumatic, normocephalic Eyes: EOMI, nl conjunctiva, nl lids ENMT: nl external ears & nose, nl lips & teeth, nl nasal mucosa & septum Neck: non-tender, supple Respiratory: clear to auscultation, normal air movement, No congested cough, No crackles/rales, No diminished breath sounds, No intercostal retraction, No labored breathing, No other, No respirations, No tactile fremitus, No wheezing Cardiovascular: nl pulses, regular rate and rhythm, No S3, No S4, No bruits, No diastolic murmur, No edema, No gallop, No irregular rhythm, No jugular venous distention (JVD), No murmurs/extra sounds, No other, No rub, No systolic murmur Gastrointestinal: nl liver, spleen, non-tender, soft, No ascites, No bowel sounds, No distended, No firm, No hepatomegaly, No mass , No other, No rebound or guarding, No splenomegaly, No surgical scars, No tender Musculoskeletal: nl extremities to inspection Extremities: normal pulses, No calf tenderness, No clubbing, No cyanosis, No edema, No other, No palpable cord, No pitting pedal edema, No tenderness 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, nl mental status, nl speech, nl strength Skin: nl turgor Lymph: nl lymph nodes Results Result Diagram: 03/28/17 1350 03/25/17 1020 Results 24 hrs Laboratory Tests Test 03/27/17 17:09 03/27/17 20:02 03/28/17 07:49 03/28/17 11:56 Bedside Glucose 101 175 118 102 Test 03/28/17 13:50 White Blood Count 6.8 # Red Blood Count 3.65 L Hemoglobin 11.4 L Hematocrit 35.3 L Mean Corpuscular Volume 96.7 Mean Corpuscular Hemoglobin 31.2 Mean Corpuscular Hemoglobin Concent 32.3 Red Cell Distribution Width 13.4 Platelet Count 268 Mean Platelet Volume 10.1 Neutrophils % 50.9 Lymphocytes % 31.7 Monocytes % 12.4 H Eosinophils % 3.4 Basophils % 0.6 Nucleated Red Blood Cells % 0.0 Neutrophils # 3.5 Lymphocytes # 2.2 Monocytes # 0.8 Eosinophils # 0.2 Basophils # 0.0 Nucleated Red Blood Cells # 0.0 Medications Medications Current Medications Potassium Chloride/Sodium Chloride (NS-KCl 20 Meq) 1,000 ml @ 60 mls/hr [id number] IV Last administered on 03/28/17 09:06; Admin Dose 60 MLS/HR; Start at 18:50 Lorazepam (Ativan) 0.5 mg Q6H PRN IV ANXIETY; Start 03/20/17 at 19:00 Ondansetron HCl (Zofran Inj) 4 mg Q6H PRN IV NAUSEA AND/OR VOMITING; Start at 19:00 Acetaminophen (Tylenol Tab) 650 mg Q6H PRN PO PAIN LEVEL 1-3 OR FEVER; Start at 19:00 Acetaminophen/ Hydrocodone Bitart ([place] (5/325)) 1 tab Q6H PRN PO PAIN LEVEL 4 -6 Last administered on 03/21/17 16:39; Admin Dose 1 TAB; Start 03/20/17 at 19: 00 Morphine Sulfate (morphine) 2 mg Q4H PRN IV PAIN LEVEL 7-10; Start 03/20/17 at 19:00 Magnesium Hydroxide (Milk Of Mag) 30 ml DAILY PRN PO CONSTIPATION; Start at 19:00 Bisacodyl (Dulcolax) 5 mg DAILY PRN PO CONSTIPATION; Start 03/20/17 at 19:00 Famotidine (Pepcid) 20 mg Q12 PO Last administered on 03/27/17 20:37; Admin Dose 20 MG; Start 03/20/17 at 21:00 Enoxaparin Sodium (Lovenox) 40 mg DAILY SC Last administered on 03/28/17 09:07 ; Admin Dose 40 MG; Start 03/21/17 at 09:00 Cilostazol (Pletal) 100 mg DAILY PO Last administered on 03/27/17 09:13; Admin Dose 100 MG; Start 03/21/17 at 09:00 Eye Lubricant (Artificial Tears Oph) 2 drop BID BOTH EYES Last administered on 03/28/17 09:08; Admin Dose 2 DROP; Start 03/20/17 at 21:00 Docusate Sodium (Colace) 250 mg QHS PO Last administered on 03/27/17 20:37; Admin Dose 250 MG; Start 03/20/17 at 21:00 Escitalopram Oxalate (Lexapro) 10 mg QAM PO Last administered on 03/27/17 09: 13; Admin Dose 10 MG; Start 03/21/17 at 09:00 EZETIMIBE (Zetia) 10 mg DAILY PO Last administered on 03/27/17 09:13; Admin Dose 10 MG; Start 03/21/17 at 09:00 Furosemide (Lasix) 20 mg DAILY PO Last administered on 03/27/17 09:13; Admin Dose 20 MG; Start 03/21/17 at 09:00 Lorazepam (Ativan) 0.5 mg HS PRN PO ANXIETY Last administered on 03/24/17 20: 55; Admin Dose 0.5 MG; Start 03/20/17 at 19:00 Metoprolol Tartrate (Lopressor) 25 mg BID PO Last administered on 03/27/17 20: 38; Admin Dose 25 MG; Start 03/20/17 at 21:00 Senna (Senokot) 1 tab DAILY PRN PO PRN; Start 03/20/17 at 19:00 Atorvastatin Calcium (Lipitor) 10 mg DAILY@21 PO Last administered on 20:37; Admin Dose 10 MG; Start 03/20/17 at 21:00 Miscellaneous Information 1 ea NOTE XX ; Start 03/20/17 at 19:30 Glucose (Glutose) 15 gm Q15M PRN PO DECREASED GLUCOSE; Start 03/20/17 at 19:30 Glucose (Glutose) 22.5 gm Q15M PRN PO DECREASED GLUCOSE; Start 03/20/17 at 19: 30 Dextrose (D50w Syringe) 25 ml Q15M PRN IV DECREASED GLUCOSE; Start 03/20/17 at 19:30 Dextrose (D50w Syringe) 50 ml Q15M PRN IV DECREASED GLUCOSE; Start 03/20/17 at 19:30 Glucagon (Glucagen) 1 mg Q15M PRN IM DECREASED GLUCOSE; Start 03/20/17 at 19:30 Glucose (Glutose) 15 gm Q15M PRN BUCCAL DECREASED GLUCOSE; Start 03/20/17 at 19 :30 Hydralazine HCl (Apresoline) 10 mg Q6H PRN IV SBP>160 Last administered on 03/28 09:07; Admin Dose 10 MG; Start 03/23/17 at 12:00 Polyethylene Glycol (Miralax) 17 gm BID PO Last administered on 03/27/17 20:38 ; Admin Dose 17 GM; Start 03/23/17 at 21:00 Lisinopril (Zestril) 10 mg DAILY PO Last administered on 03/27/17 09:14; Admin Dose 10 MG; Start 03/24/17 at 15:00 AARTI LEONG MD March 28, 2017 14:15
[2017-03-28 14:23] LABS: INR 1.02; PROTIME 13.4 Sec (12.2-14.2)
[2017-03-28 14:24] LABS: PARTIAL THROMBOPLASTIN TIME 46.2 Sec (25.0-35.0)
[2017-03-28] MEDS ORDERED: PROPOFOL 20 ML ONE (18:50)
[2017-03-28] MEDS ORDERED: LIDOCAINE 2% (SDV) 5 ML INJ ONE (18:50)
[2017-03-28] MEDS ORDERED: PROPOFOL 0 ML ONE (18:50)
[2017-03-28] MEDS: ATORVASTATIN 10 MG TAB PO SCH (20:54)
[2017-03-28] MEDS: DOCUSATE SODIUM 250 MG CAP PO SCH (21:00)
[2017-03-29] VITALS (12 sets, daily range): BP systolic 124–142; BP diastolic 63–78; PULSE 71–80; RESP 18–19
[2017-03-29] MEDS: PANTOPRAZOLE 40 MG INJ IV SCH ×2 (05:05→17:18)
[2017-03-29] MEDS: NS + KCL 20 MEQ 1,000 ML IV SCH ×2 (05:05→21:03)
[2017-03-29] MEDS: INSULIN ASPART [NOVOLOG] 3 ML PEN SC SCH ×4 (07:48→21:00)
[2017-03-29] MEDS: ENOXAPARIN 40 MG/0.4 ML SYG SC SCH (08:20)
[2017-03-29] MEDS: POLYETHYLENE GLYCOL 17 GM PACKET PO SCH ×2 (08:20→21:00)
[2017-03-29] MEDS: CILOSTAZOL 100 MG TAB PO SCH (08:20)
[2017-03-29] MEDS: FUROSEMIDE 20 MG TAB PO SCH (08:20)
[2017-03-29] MEDS: EZETIMIBE 10 MG TAB PO SCH (08:20)
[2017-03-29] MEDS: ESCITALOPRAM 10 MG TAB PO SCH (08:21)
[2017-03-29] MEDS: METOPROLOL 25 MG TAB PO SCH ×2 (08:21→21:05)
[2017-03-29] MEDS: LISINOPRIL 10 MG TAB PO SCH (08:21)
[2017-03-29] MEDS: ARTIFICIAL TEARS 15 ML OPH BOTH EYES SCH ×2 (08:22→21:04)
[2017-03-29 11:25] LABS: ADD SCAN DIFF NO
[2017-03-29 11:31] LABS: BASOPHILS % 0.4 % (0.0-2.0); EOSINOPHILS # 0.3 10^3/ul (0.0-0.5); EOSINOPHILS % 3.4 % (0.0-7.0); HEMATOCRIT 33.2 % (37.0-47.0); HEMOGLOBIN 10.6 g/dl (12.0-16.0); LYMPHOCYTES # 1.9 10^3/ul (0.8-2.9); LYMPHOCYTES % 26.1 % (15.0-51.0); MEAN CORPUSCULAR HEMOGLOBIN 31.2 pg (29.0-33.0); MEAN CORPUSCULAR HGB CONC 31.9 g/dl (32.0-37.0); MEAN CORPUSCULAR VOLUME 97.6 fl (82.0-101.0); MEAN PLATELET VOLUME 10.7 fl (7.4-10.4); MONOCYTE # 0.8 10^3/ul (0.3-0.9); MONOCYTES % 11.3 % (0.0-11.0); NEUTROPHIL # 4.3 10^3/ul (1.6-7.5); NEUTROPHILS % 58.1 % (39.0-77.0); PLATELET COUNT 300 10^3/UL (140-415); RED CELL DISTRIBUTION WIDTH 13.7 % (11.5-14.5); WHITE BLOOD COUNT 7.4 10^3/ul (4.8-10.8)
[2017-03-29 11:48] LABS: CALCIUM 8.7 mg/dl (8.4-10.2); CREATININE 0.62 mg/dl (0.44-1.00); POTASSIUM 4.3 mmol/L (3.5-5.1)
--- NOTE | 2017-03-29 13:13 | PN ---
Date/Time of Note Date/Time of Note DATE: 03/29/17 TIME: 13:04 Assessment/Plan VTE Prophylaxis VTE Prophylaxis Intervention: ambulation Lines/Catheters [facility] Saline Lock Urinary Cath still in place: No Assessment/Plan Assessment/Plan * Dysphagia * EGD Balloon dilatation Cricopharyngeal bar Post balloon dilatation 15 mm Esophagitis Hiatal hernia Speech modified barium swallow No aspiration during swallowing. Large cricopharyngeal bar. * Diabetes mellitus * Hypertension Plan * refer to speech therapy repeat swallow evaluation post balloon dilatation Subjective Subjective 24 Hr Interval Summary Free Text/Dictation * Course reviewed with RN * Patient seen and examined * S/P EGD dilatation Cricopharyngeal bar Post balloon dilatation 15 mm Esophagitis Hiatal hernia * Tolerating soft diet Exam/Review of Systems Vital Signs Vitals Vital Signs Date Time Temp Pulse Resp B/P Pulse Ox O2 Delivery O2 Flow Rate FiO2 03/29/17 12:12 75 03/29/17 11:36 98.3 19 124/66 96 03/28/17 19:54 Room Air 2.0 Intake and Output 03/28/17 03/28/17 03/29/17 15:00 23:00 07:00 Intake Total 660 ml 1050 ml Balance 660 ml 1050 ml Exam Constitutional: alert, oriented Head: normocephalic Neck: non-tender, supple Respiratory: clear to auscultation, normal air movement Cardiovascular: nl pulses, regular rate and rhythm Gastrointestinal: soft Musculoskeletal: nl extremities to inspection Extremities: normal pulses Skin: nl turgor Results Result Diagram: 03/29/17 1040 03/29/17 1040 Results 24 hrs Laboratory Tests Test 03/28/17 13:50 03/28/17 17:48 03/28/17 19:51 03/28/17 20:58 White Blood Count 6.8 # Red Blood Count 3.65 L Hemoglobin 11.4 L Hematocrit 35.3 L Mean Corpuscular Volume 96.7 Mean Corpuscular Hemoglobin 31.2 Mean Corpuscular Hemoglobin Concent 32.3 Red Cell Distribution Width 13.4 Platelet Count 268 Mean Platelet Volume 10.1 Neutrophils % 50.9 Lymphocytes % 31.7 Monocytes % 12.4 H Eosinophils % 3.4 Basophils % 0.6 Nucleated Red Blood Cells % 0.0 Neutrophils # 3.5 Lymphocytes # 2.2 Monocytes # 0.8 Eosinophils # 0.2 Basophils # 0.0 Nucleated Red Blood Cells # 0.0 Prothrombin Time 13.4 Prothrombin Time Ratio 1.0 INR International Normalized Ratio 1.02 Activated Partial Thromboplast Time 46.2 H Sodium Level 137 Potassium Level 4.2 Chloride Level 103 Carbon Dioxide Level 29 Anion Gap 9 Blood Urea Nitrogen 11 Creatinine 0.60 Glucose Level 117 Calcium Level 9.1 Total Bilirubin 0.1 L Direct Bilirubin 0.00 Indirect Bilirubin 0.1 Aspartate Amino Transf (AST/SGOT) 82 H Alanine Aminotransferase (ALT/SGPT) 45 Alkaline Phosphatase 81 Total Protein 7.1 Albumin 3.1 L Globulin 4.00 H Albumin/Globulin Ratio 0.77 Bedside Glucose 90 94 99 Test 03/29/17 07:46 03/29/17 10:40 03/29/17 11:43 Bedside Glucose 106 146 White Blood Count 7.4 Red Blood Count 3.40 L Hemoglobin 10.6 L Hematocrit 33.2 L Mean Corpuscular Volume 97.6 Mean Corpuscular Hemoglobin 31.2 Mean Corpuscular Hemoglobin Concent 31.9 L Red Cell Distribution Width 13.7 Platelet Count 300 Mean Platelet Volume 10.7 H Neutrophils % 58.1 Lymphocytes % 26.1 Monocytes % 11.3 H Eosinophils % 3.4 Basophils % 0.4 Nucleated Red Blood Cells % 0.0 Neutrophils # 4.3 Lymphocytes # 1.9 Monocytes # 0.8 Eosinophils # 0.3 Basophils # 0.0 Nucleated Red Blood Cells # 0.0 Sodium Level 141 Potassium Level 4.3 Chloride Level 104 Carbon Dioxide Level 27 Anion Gap 14 Blood Urea Nitrogen 11 Creatinine 0.62 Glucose Level 167 Calcium Level 8.7 Medications Medications Current Medications Potassium Chloride/Sodium Chloride (NS-KCl 20 Meq) 1,000 ml @ 60 mls/hr [id number] IV Last administered on 03/29/17t 05:05; Admin Dose 60 MLS/HR; Start at 18:50 Lorazepam (Ativan) 0.5 mg Q6H PRN IV ANXIETY; Start 03/20/17 at 19:00 Ondansetron HCl (Zofran Inj) 4 mg Q6H PRN IV NAUSEA AND/OR VOMITING; Start at 19:00 Acetaminophen (Tylenol Tab) 650 mg Q6H PRN PO PAIN LEVEL 1-3 OR FEVER; Start at 19:00 Acetaminophen/ Hydrocodone Bitart ([place] (5/325)) 1 tab Q6H PRN PO PAIN LEVEL 4 -6 Last administered on 03/21/17 16:39; Admin Dose 1 TAB; Start 03/20/17 at 19: 00 Morphine Sulfate (morphine) 2 mg Q4H PRN IV PAIN LEVEL 7-10; Start 03/20/17 at 19:00 Magnesium Hydroxide (Milk Of Mag) 30 ml DAILY PRN PO CONSTIPATION; Start at 19:00 Bisacodyl (Dulcolax) 5 mg DAILY PRN PO CONSTIPATION; Start 03/20/17 at 19:00 Enoxaparin Sodium (Lovenox) 40 mg DAILY SC Last administered on 03/29/17 08:20 ; Admin Dose 40 MG; Start 03/21/17 at 09:00 Cilostazol (Pletal) 100 mg DAILY PO Last administered on 03/29/17 08:20; Admin Dose 100 MG; Start 03/21/17 at 09:00 Eye Lubricant (Artificial Tears Oph) 2 drop BID BOTH EYES Last administered on 03/29/17 08:22; Admin Dose 2 DROP; Start 03/20/17 at 21:00 Docusate Sodium (Colace) 250 mg QHS PO Last administered on 03/27/17 20:37; Admin Dose 250 MG; Start 03/20/17 at 21:00 Escitalopram Oxalate (Lexapro) 10 mg QAM PO Last administered on 03/29/17 08: 21; Admin Dose 10 MG; Start 03/21/17 at 09:00 EZETIMIBE (Zetia) 10 mg DAILY PO Last administered on 03/29/17 08:20; Admin Dose 10 MG; Start 03/21/17 at 09:00 Furosemide (Lasix) 20 mg DAILY PO Last administered on 03/29/17 08:20; Admin Dose 20 MG; Start 03/21/17 at 09:00 Lorazepam (Ativan) 0.5 mg HS PRN PO ANXIETY Last administered on 03/24/17 20: 55; Admin Dose 0.5 MG; Start 03/20/17 at 19:00 Metoprolol Tartrate (Lopressor) 25 mg BID PO Last administered on 03/29/17 08: 21; Admin Dose 25 MG; Start 03/20/17 at 21:00 Senna (Senokot) 1 tab DAILY PRN PO PRN; Start 03/20/17 at 19:00 Atorvastatin Calcium (Lipitor) 10 mg DAILY@21 PO Last administered on 20:54; Admin Dose 10 MG; Start 03/20/17 at 21:00 Miscellaneous Information 1 ea NOTE XX ; Start 03/20/17 at 19:30 Glucose (Glutose) 15 gm Q15M PRN PO DECREASED GLUCOSE; Start 03/20/17 at 19:30 Glucose (Glutose) 22.5 gm Q15M PRN PO DECREASED GLUCOSE; Start 03/20/17 at 19: 30 Dextrose (D50w Syringe) 25 ml Q15M PRN IV DECREASED GLUCOSE; Start 03/20/17 at 19:30 Dextrose (D50w Syringe) 50 ml Q15M PRN IV DECREASED GLUCOSE; Start 03/20/17 at 19:30 Glucagon (Glucagen) 1 mg Q15M PRN IM DECREASED GLUCOSE; Start 03/20/17 at 19:30 Glucose (Glutose) 15 gm Q15M PRN BUCCAL DECREASED GLUCOSE; Start 03/20/17 at 19 :30 Hydralazine HCl (Apresoline) 10 mg Q6H PRN IV SBP>160 Last administered on 03/28 09:07; Admin Dose 10 MG; Start 03/23/17 at 12:00 Polyethylene Glycol (Miralax) 17 gm BID PO Last administered on 03/29/17 08:20 ; Admin Dose 17 GM; Start 03/23/17 at 21:00 Lisinopril (Zestril) 10 mg DAILY PO Last administered on 03/29/17 08:21; Admin Dose 10 MG; Start 03/24/17 at 15:00 Pantoprazole (Protonix Iv) 40 mg BID@18 IV Last administered on 03/29/17 05 :05; Admin Dose 40 MG; Start 03/29/17 at 06:00 ROXANNE LEWIS MD March 29, 2017 13:13
--- NOTE | 2017-03-29 14:42 | GILP ---
DATE OF PROCEDURE: 03/28/2017 PROCEDURE: Esophagogastroduodenoscopy with balloon dilatation of the cricopharyngeal area and biops ies. PREMEDICATION: Monitored anesthesia care by anesthesiologist. SURGEON: Roxanne Aaron MD INSTRUMENT USED: Olympus panendoscope. TECHNIQUE: After informed consent, with the patient/relatives understanding the procedure, its indic ations, potential risks and complications, including but not limited to: allergic reaction, bleeding , perforation or infection, and after all pertinent questions were answered to the patients satisfac tion, the patient/relatives signed witnessed informed consent. Following this, premedication was ad ministered slowly IV push under careful cardiovascular and respiratory monitoring with pulse oximetr y, automatic blood pressure and personnel monitor. Once the sedative effect was achieved the patient was place in the left lateral decubitus, the panendoscope was introduced and advanced under visual contr ol. Careful examination of the upper gastrointestinal tract, both on insertion as well as withdrawal of the instrument disclosed the following findings: ESOPHAGUS: The cricopharyngeal area shows slight narrowing and no evidence of a Zenker's diverticul um is present. The remainder of the esophagus shows significant erythema and edema and biopsies were obtained to ru le out eosinophilic esophagitis. A small hiatal hernia is present. STOMACH: Upon entrance to the stomach air was insufflated, the gastric albarran distended normally. Th e mucosa of the fundus, body and antrum of the stomach was carefully examined both head-on and on re troflexion, and shows no abnormalities. There is no evidence of gastritis, ulcers or neoplasm. PYLORUS: The pylorus appears patent and within normal limits, with no evidence of gastric outlet ob struction. DUODENUM: The duodenal mucosa was carefully examined in the duodenal bulb as well as the second po rtion of the duodenum and appears unremarkable with no evidence of duodenitis, ulcer or neoplasm. At this point, instrument was withdrawn. A balloon catheter measuring 12 to 15 mm was introduced an d once we reached the proximal esophagus, the balloon was advanced and the balloon was placed across the cricopharyngeal sphincter and dilatation was performed to 12 and subsequently 15 mm without eduardo dence of complication. The instrument was withdrawn. The patient tolerated procedure well. IMPRESSION: 1. Cricopharyngeal bar post-balloon dilatation to 15 mm. 2. Distal esophagitis, rule out eosinophilic esophagitis, biopsies were obtained. 3. Hiatal hernia. PLAN: The patient will be closely observed and further recommendation will depend on her clinical c ourse. Dictated By: ROXANNE AARON MS/YA Conf#: [id number] DID#: [id number] CC: ROXANNE AARON;*EndCC*
--- NOTE | 2017-03-29 14:48 | PN ---
Date/Time of Note Date/Time of Note DATE: 03/29/17 TIME: 14:46 Assessment/Plan VTE Prophylaxis VTE Prophylaxis Intervention: LMWH Lines/Catheters IV Catheter Type (from [facility]): Saline Lock Urinary Cath still in place: No Assessment/Plan Chief Complaint/Hosp Course Assessment/Plan: 86 F with: 1. Large cricopharyngea bar with dysphagia - s/p EGD with balloon dilation performed - monitor, f/u GI rec's, ST eval - continue PT 2. Hypomagnesemia, corrected - monitor 3. Dehydration, improved 4. Essential hypertension. start lisinopril 03/24/2017 5. Dyslipidemia. Continue statins. 6. Type 2 diabetes mellitus. The patient was continued on sliding scale insulin. Hemoglobin A1c 6.4. 7. History of congestive heart failure. sr-table 8. DVT prophylaxis. Subcutaneous Lovenox Problems: Subjective 24 Hr Interval Summary Free Text/Dictation Pt had balloon dilation performed yesterday, denies cp. Says "the potatoes are dry", but otherwise tolerating modified diet. Exam/Review of Systems Vital Signs Vitals Vital Signs Date Time Temp Pulse Resp B/P Pulse Ox O2 Delivery O2 Flow Rate FiO2 03/29/17 12:12 75 03/29/17 11:36 98.3 19 124/66 96 03/28/17 19:54 Room Air 2.0 Intake and Output 03/28/17 03/28/17 03/29/17 15:00 23:00 07:00 Intake Total 660 ml 1050 ml Balance 660 ml 1050 ml Exam Constitutional: alert, oriented, well developed Psych: nl mood/affect, no complaints Head: atraumatic, normocephalic Eyes: EOMI, nl conjunctiva, nl lids ENMT: nl external ears & nose, nl lips & teeth, nl nasal mucosa & septum Neck: non-tender, supple Respiratory: clear to auscultation, normal air movement, No congested cough, No crackles/rales, No diminished breath sounds, No intercostal retraction, No labored breathing, No other, No respirations, No tactile fremitus, No wheezing Cardiovascular: nl pulses, regular rate and rhythm, No S3, No S4, No bruits, No diastolic murmur, No edema, No gallop, No irregular rhythm, No jugular venous distention (JVD), No murmurs/extra sounds, No other, No rub, No systolic murmur Gastrointestinal: nl liver, spleen, non-tender, soft, No ascites, No bowel sounds, No distended, No firm, No hepatomegaly, No mass , No other, No rebound or guarding, No splenomegaly, No surgical scars, No tender Musculoskeletal: nl extremities to inspection Extremities: normal pulses, No calf tenderness, No clubbing, No cyanosis, No edema, No other, No palpable cord, No pitting pedal edema, No tenderness 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, nl mental status, nl speech, nl strength Skin: nl turgor Lymph: nl lymph nodes Results Result Diagram: 03/29/17 1040 03/29/17 1040 Results 24 hrs Laboratory Tests Test 03/28/17 17:48 03/28/17 19:51 03/28/17 20:58 03/29/17 07:46 Bedside Glucose 90 94 99 106 Test 03/29/17 10:40 03/29/17 11:43 White Blood Count 7.4 Red Blood Count 3.40 L Hemoglobin 10.6 L Hematocrit 33.2 L Mean Corpuscular Volume 97.6 Mean Corpuscular Hemoglobin 31.2 Mean Corpuscular Hemoglobin Concent 31.9 L Red Cell Distribution Width 13.7 Platelet Count 300 Mean Platelet Volume 10.7 H Neutrophils % 58.1 Lymphocytes % 26.1 Monocytes % 11.3 H Eosinophils % 3.4 Basophils % 0.4 Nucleated Red Blood Cells % 0.0 Neutrophils # 4.3 Lymphocytes # 1.9 Monocytes # 0.8 Eosinophils # 0.3 Basophils # 0.0 Nucleated Red Blood Cells # 0.0 Sodium Level 141 Potassium Level 4.3 Chloride Level 104 Carbon Dioxide Level 27 Anion Gap 14 Blood Urea Nitrogen 11 Creatinine 0.62 Glucose Level 167 Calcium Level 8.7 Bedside Glucose 146 Medications Medications Current Medications Potassium Chloride/Sodium Chloride (NS-KCl 20 Meq) 1,000 ml @ 60 mls/hr [id number] IV Last administered on 03/29/17t 05:05; Admin Dose 60 MLS/HR; Start at 18:50 Lorazepam (Ativan) 0.5 mg Q6H PRN IV ANXIETY; Start 03/20/17 at 19:00 Ondansetron HCl (Zofran Inj) 4 mg Q6H PRN IV NAUSEA AND/OR VOMITING; Start at 19:00 Acetaminophen (Tylenol Tab) 650 mg Q6H PRN PO PAIN LEVEL 1-3 OR FEVER; Start at 19:00 Acetaminophen/ Hydrocodone Bitart ([place] (5/325)) 1 tab Q6H PRN PO PAIN LEVEL 4 -6 Last administered on 03/21/17 16:39; Admin Dose 1 TAB; Start 03/20/17 at 19: 00 Morphine Sulfate (morphine) 2 mg Q4H PRN IV PAIN LEVEL 7-10; Start 03/20/17 at 19:00 Magnesium Hydroxide (Milk Of Mag) 30 ml DAILY PRN PO CONSTIPATION; Start at 19:00 Bisacodyl (Dulcolax) 5 mg DAILY PRN PO CONSTIPATION; Start 03/20/17 at 19:00 Enoxaparin Sodium (Lovenox) 40 mg DAILY SC Last administered on 03/29/17 08:20 ; Admin Dose 40 MG; Start 03/21/17 at 09:00 Cilostazol (Pletal) 100 mg DAILY PO Last administered on 03/29/17 08:20; Admin Dose 100 MG; Start 03/21/17 at 09:00 Eye Lubricant (Artificial Tears Oph) 2 drop BID BOTH EYES Last administered on 03/29/17 08:22; Admin Dose 2 DROP; Start 03/20/17 at 21:00 Docusate Sodium (Colace) 250 mg QHS PO Last administered on 03/27/17 20:37; Admin Dose 250 MG; Start 03/20/17 at 21:00 Escitalopram Oxalate (Lexapro) 10 mg QAM PO Last administered on 03/29/17 08: 21; Admin Dose 10 MG; Start 03/21/17 at 09:00 EZETIMIBE (Zetia) 10 mg DAILY PO Last administered on 03/29/17 08:20; Admin Dose 10 MG; Start 03/21/17 at 09:00 Furosemide (Lasix) 20 mg DAILY PO Last administered on 03/29/17 08:20; Admin Dose 20 MG; Start 03/21/17 at 09:00 Lorazepam (Ativan) 0.5 mg HS PRN PO ANXIETY Last administered on 03/24/17 20: 55; Admin Dose 0.5 MG; Start 03/20/17 at 19:00 Metoprolol Tartrate (Lopressor) 25 mg BID PO Last administered on 03/29/17 08: 21; Admin Dose 25 MG; Start 03/20/17 at 21:00 Senna (Senokot) 1 tab DAILY PRN PO PRN; Start 03/20/17 at 19:00 Atorvastatin Calcium (Lipitor) 10 mg DAILY@21 PO Last administered on 20:54; Admin Dose 10 MG; Start 03/20/17 at 21:00 Miscellaneous Information 1 ea NOTE XX ; Start 03/20/17 at 19:30 Glucose (Glutose) 15 gm Q15M PRN PO DECREASED GLUCOSE; Start 03/20/17 at 19:30 Glucose (Glutose) 22.5 gm Q15M PRN PO DECREASED GLUCOSE; Start 03/20/17 at 19: 30 Dextrose (D50w Syringe) 25 ml Q15M PRN IV DECREASED GLUCOSE; Start 03/20/17 at 19:30 Dextrose (D50w Syringe) 50 ml Q15M PRN IV DECREASED GLUCOSE; Start 03/20/17 at 19:30 Glucagon (Glucagen) 1 mg Q15M PRN IM DECREASED GLUCOSE; Start 03/20/17 at 19:30 Glucose (Glutose) 15 gm Q15M PRN BUCCAL DECREASED GLUCOSE; Start 03/20/17 at 19 :30 Hydralazine HCl (Apresoline) 10 mg Q6H PRN IV SBP>160 Last administered on 03/28 09:07; Admin Dose 10 MG; Start 03/23/17 at 12:00 Polyethylene Glycol (Miralax) 17 gm BID PO Last administered on 03/29/17 08:20 ; Admin Dose 17 GM; Start 03/23/17 at 21:00 Lisinopril (Zestril) 10 mg DAILY PO Last administered on 03/29/17 08:21; Admin Dose 10 MG; Start 03/24/17 at 15:00 Pantoprazole (Protonix Iv) 40 mg BID@,18 IV Last administered on 03/29/17 05 :05; Admin Dose 40 MG; Start 03/29/17 at 06:00 VALERIO GREEN March 29, 2017 14:48
[2017-03-29] MEDS: DOCUSATE SODIUM 250 MG CAP PO SCH (21:00)
[2017-03-29] MEDS: ATORVASTATIN 10 MG TAB PO SCH (21:04)
[2017-03-30] VITALS (12 sets, daily range): BP systolic 130–152; BP diastolic 60–81; PULSE 66–85; RESP 16–19
[2017-03-30] MEDS: PANTOPRAZOLE 40 MG INJ IV SCH ×2 (06:10→17:31)
[2017-03-30 06:30] LABS: ADD SCAN DIFF NO
[2017-03-30 06:51] LABS: BASOPHILS % 0.5 % (0.0-2.0); EOSINOPHILS # 0.2 10^3/ul (0.0-0.5); EOSINOPHILS % 3.3 % (0.0-7.0); HEMOGLOBIN 10.3 g/dl (12.0-16.0); LYMPHOCYTES # 2.3 10^3/ul (0.8-2.9); LYMPHOCYTES % 30.8 % (15.0-51.0); MEAN CORPUSCULAR HEMOGLOBIN 31.3 pg (29.0-33.0); MEAN CORPUSCULAR HGB CONC 32.2 g/dl (32.0-37.0); MEAN CORPUSCULAR VOLUME 97.3 fl (82.0-101.0); MEAN PLATELET VOLUME 11.5 fl (7.4-10.4); MONOCYTE # 1.1 10^3/ul (0.3-0.9); MONOCYTES % 15.4 % (0.0-11.0); NEUTROPHIL # 3.6 10^3/ul (1.6-7.5); NEUTROPHILS % 48.9 % (39.0-77.0); PLATELET COUNT 223 10^3/UL (140-415); RED BLOOD COUNT 3.29 10^6/ul (4.20-5.40); RED CELL DISTRIBUTION WIDTH 13.7 % (11.5-14.5); WHITE BLOOD COUNT 7.3 10^3/ul (4.8-10.8)
[2017-03-30 06:57] LABS: POTASSIUM 3.8 mmol/L (3.5-5.1)
[2017-03-30 07:00] LABS: CREATININE 0.63 mg/dl (0.44-1.00)
[2017-03-30 07:01] LABS: CALCIUM 8.3 mg/dl (8.4-10.2)
[2017-03-30] MEDS: INSULIN ASPART [NOVOLOG] 3 ML PEN SC SCH ×4 (07:44→20:25)
[2017-03-30] MEDS: ARTIFICIAL TEARS 15 ML OPH BOTH EYES SCH ×2 (08:28→20:26)
[2017-03-30] MEDS: ESCITALOPRAM 10 MG TAB PO SCH (08:29)
[2017-03-30] MEDS: EZETIMIBE 10 MG TAB PO SCH (08:29)
[2017-03-30] MEDS: CILOSTAZOL 100 MG TAB PO SCH (08:29)
[2017-03-30] MEDS: LISINOPRIL 10 MG TAB PO SCH (08:30)
[2017-03-30] MEDS: FUROSEMIDE 20 MG TAB PO SCH (08:30)
[2017-03-30] MEDS: METOPROLOL 25 MG TAB PO SCH ×2 (08:31→20:38)
[2017-03-30] MEDS: ENOXAPARIN 40 MG/0.4 ML SYG SC SCH (08:32)
[2017-03-30] MEDS: POLYETHYLENE GLYCOL 17 GM PACKET PO SCH ×2 (08:35→20:25)
--- NOTE | 2017-03-30 12:40 | PN ---
Date/Time of Note Date/Time of Note DATE: 03/30/17 TIME: 12:38 Assessment/Plan VTE Prophylaxis VTE Prophylaxis Intervention: SCD's Lines/Catheters IV [facility] Type [facility] Saline Lock Urinary Cath still in place: No Assessment/Plan Assessment/Plan Dysphagia * EGD Balloon dilatation Cricopharyngeal bar Post balloon dilatation 15 mm Esophagitis Hiatal hernia Speech modified barium swallow No aspiration during swallowing. Large cricopharyngeal bar. * Diabetes mellitus * Hypertension Plan * follow speech swallow therapy recommendations Subjective 24 Hr Interval Summary Free Text/Dictation * Course reviewed with RN * Patient seen and examined * Tolerating mechanical soft diet Exam/Review of Systems Vital Signs Vitals Vital Signs Date Time Temp Pulse Resp B/P Pulse Ox O2 Delivery O2 Flow Rate FiO2 03/30/17 12:26 66 03/30/17 11:30 97.8 16 152/81 97 03/28/17 19:54 Room Air 2.0 Intake and Output 03/29/17 03/29/17 03/30/17 15:00 23:00 07:00 Intake Total 1210 ml 740 ml Balance 1210 ml 740 ml Exam Constitutional: alert, frail Eyes: nl conjunctiva Neck: non-tender, supple Respiratory: clear to auscultation, normal air movement Cardiovascular: nl pulses, regular rate and rhythm Gastrointestinal: bowel sounds, soft Musculoskeletal: nl extremities to inspection Extremities: normal pulses Neurological: nl speech, nl strength Results Result Diagram: 03/30/17 0545 03/30/17 0545 Results 24 hrs Laboratory Tests Test 03/29/17 17:14 03/29/17 21:01 03/30/17 05:45 03/30/17 07:43 Bedside Glucose 125 129 106 White Blood Count 7.3 Red Blood Count 3.29 L Hemoglobin 10.3 L Hematocrit 32.0 L Mean Corpuscular Volume 97.3 Mean Corpuscular Hemoglobin 31.3 Mean Corpuscular Hemoglobin Concent 32.2 Red Cell Distribution Width 13.7 Platelet Count 223 # Mean Platelet Volume 11.5 H Neutrophils % 48.9 Lymphocytes % 30.8 Monocytes % 15.4 H Eosinophils % 3.3 Basophils % 0.5 Nucleated Red Blood Cells % 0.0 Neutrophils # 3.6 Lymphocytes # 2.3 Monocytes # 1.1 H Eosinophils # 0.2 Basophils # 0.0 Nucleated Red Blood Cells # 0.0 Sodium Level 140 Potassium Level 3.8 Chloride Level 112 H Carbon Dioxide Level 26 Anion Gap 6 #L Blood Urea Nitrogen 11 Creatinine 0.63 Glucose Level 121 # Calcium Level 8.3 L Test 03/30/17 11:53 Bedside Glucose 142 Medications Medications Current Medications Potassium Chloride/Sodium Chloride (NS-KCl 20 Meq) 1,000 ml @ 60 mls/hr [id number] IV Last administered on 03/29/17 21:03; Admin Dose 60 MLS/HR; Start at 18:50 Lorazepam (Ativan) 0.5 mg Q6H PRN IV ANXIETY; Start 03/20/17 at 19:00 Ondansetron HCl (Zofran Inj) 4 mg Q6H PRN IV NAUSEA AND/OR VOMITING; Start at 19:00 Acetaminophen (Tylenol Tab) 650 mg Q6H PRN PO PAIN LEVEL 1-3 OR FEVER; Start at 19:00 Acetaminophen/ Hydrocodone Bitart ([place] (5/325)) 1 tab Q6H PRN PO PAIN LEVEL 4 -6 Last administered on 03/21/17 16:39; Admin Dose 1 TAB; Start 03/20/17 at 19: 00 Morphine Sulfate (morphine) 2 mg Q4H PRN IV PAIN LEVEL 7-10; Start 03/20/17 at 19:00 Magnesium Hydroxide (Milk Of Mag) 30 ml DAILY PRN PO CONSTIPATION; Start at 19:00 Bisacodyl (Dulcolax) 5 mg DAILY PRN PO CONSTIPATION; Start 03/20/17 at 19:00 Enoxaparin Sodium (Lovenox) 40 mg DAILY SC Last administered on 03/30/17 08:32 ; Admin Dose 40 MG; Start 03/21/17 at 09:00 Cilostazol (Pletal) 100 mg DAILY PO Last administered on 03/30/17 08:29; Admin Dose 100 MG; Start 03/21/17 at 09:00 Eye Lubricant (Artificial Tears Oph) 2 drop BID BOTH EYES Last administered on 03/30/17 08:28; Admin Dose 2 DROP; Start 03/20/17 at 21:00 Docusate Sodium (Colace) 250 mg QHS PO Last administered on 03/27/17 20:37; Admin Dose 250 MG; Start 03/20/17 at 21:00 Escitalopram Oxalate (Lexapro) 10 mg QAM PO Last administered on 03/30/17 08: 29; Admin Dose 10 MG; Start 03/21/17 at 09:00 EZETIMIBE (Zetia) 10 mg DAILY PO Last administered on 03/30/17 08:29; Admin Dose 10 MG; Start 03/21/17 at 09:00 Furosemide (Lasix) 20 mg DAILY PO Last administered on 03/30/17 08:30; Admin Dose 20 MG; Start 03/21/17 at 09:00 Lorazepam (Ativan) 0.5 mg HS PRN PO ANXIETY Last administered on 03/24/17 20: 55; Admin Dose 0.5 MG; Start 03/20/17 at 19:00 Metoprolol Tartrate (Lopressor) 25 mg BID PO Last administered on 03/30/17 08: 31; Admin Dose 25 MG; Start 03/20/17 at 21:00 Senna (Senokot) 1 tab DAILY PRN PO PRN; Start 03/20/17 at 19:00 Atorvastatin Calcium (Lipitor) 10 mg DAILY@21 PO Last administered on 21:04; Admin Dose 10 MG; Start 03/20/17 at 21:00 Miscellaneous Information 1 ea NOTE XX ; Start 03/20/17 at 19:30 Glucose (Glutose) 15 gm Q15M PRN PO DECREASED GLUCOSE; Start 03/20/17 at 19:30 Glucose (Glutose) 22.5 gm Q15M PRN PO DECREASED GLUCOSE; Start 03/20/17 at 19: 30 Dextrose (D50w Syringe) 25 ml Q15M PRN IV DECREASED GLUCOSE; Start 03/20/17 at 19:30 Dextrose (D50w Syringe) 50 ml Q15M PRN IV DECREASED GLUCOSE; Start 03/20/17 at 19:30 Glucagon (Glucagen) 1 mg Q15M PRN IM DECREASED GLUCOSE; Start 03/20/17 at 19:30 Glucose (Glutose) 15 gm Q15M PRN BUCCAL DECREASED GLUCOSE; Start 03/20/17 at 19 :30 Hydralazine HCl (Apresoline) 10 mg Q6H PRN IV SBP>160 Last administered on 03/28 09:07; Admin Dose 10 MG; Start 03/23/17 at 12:00 Polyethylene Glycol (Miralax) 17 gm BID PO Last administered on 03/29/17 08:20 ; Admin Dose 17 GM; Start 03/23/17 at 21:00 Lisinopril (Zestril) 10 mg DAILY PO Last administered on 03/30/17 08:30; Admin Dose 10 MG; Start 03/24/17 at 15:00 Pantoprazole (Protonix Iv) 40 mg BID@18 IV Last administered on 03/30/17 06 :10; Admin Dose 40 MG; Start 03/29/17 at 06:00 ROXANNE LEWIS MD March 30, 2017 12:40
--- NOTE | 2017-03-30 13:38 | PN ---
Date/Time of Note Date/Time of Note DATE: 03/30/17 TIME: 13:35 Assessment/Plan VTE Prophylaxis VTE Prophylaxis Intervention: LMWH Lines/Catheters [facility] (from [facility] Saline Lock Urinary Cath still in place: No Assessment/Plan Chief Complaint/Hosp Course Assessment/Plan: 86 F with: 1. Large cricopharyngea bar with dysphagia - s/p EGD with balloon dilation performed 2 days ago - monitor, f/u GI and ST rec's, mech soft diet puree for now - continue PT 2. Hypomagnesemia, corrected - monitor 3. Dehydration, improved 4. Essential hypertension - continue current meds (stable) 5. Dyslipidemia. Continue statins. 6. Type 2 diabetes mellitus. The patient was continued on sliding scale insulin. Hemoglobin A1c 6.4. 7. History of congestive heart failure. sr-table 8. DVT prophylaxis. Subcutaneous Lovenox Problems: Subjective 24 Hr Interval Summary Free Text/Dictation Pt seen by ST, on puree soft mech diet now, tolerating it. No acute events overnight. Exam/Review of Systems Vital Signs Vitals Vital Signs Date Time Temp Pulse Resp B/P Pulse Ox O2 Delivery O2 Flow Rate FiO2 03/30/17 12:26 66 03/30/17 11:30 97.8 16 152/81 97 03/28/17 19:54 Room Air 2.0 Intake and Output 03/29/17 03/29/17 03/30/17 15:00 23:00 07:00 Intake Total 1210 ml 740 ml Balance 1210 ml 740 ml Exam Constitutional: alert, oriented, well developed Psych: nl mood/affect, no complaints Head: atraumatic, normocephalic Eyes: EOMI, nl conjunctiva, nl lids ENMT: nl external ears & nose, nl lips & teeth, nl nasal mucosa & septum Neck: non-tender, supple Respiratory: clear to auscultation, normal air movement, No congested cough, No crackles/rales, No diminished breath sounds, No intercostal retraction, No labored breathing, No other, No respirations, No tactile fremitus, No wheezing Cardiovascular: nl pulses, regular rate and rhythm, No S3, No S4, No bruits, No diastolic murmur, No edema, No gallop, No irregular rhythm, No jugular venous distention (JVD), No murmurs/extra sounds, No other, No rub, No systolic murmur Gastrointestinal: nl liver, spleen, non-tender, soft, No ascites, No bowel sounds, No distended, No firm, No hepatomegaly, No mass , No other, No rebound or guarding, No splenomegaly, No surgical scars, No tender Musculoskeletal: nl extremities to inspection Extremities: normal pulses, No calf tenderness, No clubbing, No cyanosis, No edema, No other, No palpable cord, No pitting pedal edema, No tenderness Neurological: [employer]INER II-XII intact, nl mental status, nl speech, nl strength Results Result Diagram: 03/30/17 0545 03/30/17 0545 Results 24 hrs Laboratory Tests Test 03/29/17 17:14 03/29/17 21:01 03/30/17 05:45 03/30/17 07:43 Bedside Glucose 125 129 106 White Blood Count 7.3 Red Blood Count 3.29 L Hemoglobin 10.3 L Hematocrit 32.0 L Mean Corpuscular Volume 97.3 Mean Corpuscular Hemoglobin 31.3 Mean Corpuscular Hemoglobin Concent 32.2 Red Cell Distribution Width 13.7 Platelet Count 223 # Mean Platelet Volume 11.5 H Neutrophils % 48.9 Lymphocytes % 30.8 Monocytes % 15.4 H Eosinophils % 3.3 Basophils % 0.5 Nucleated Red Blood Cells % 0.0 Neutrophils # 3.6 Lymphocytes # 2.3 Monocytes # 1.1 H Eosinophils # 0.2 Basophils # 0.0 Nucleated Red Blood Cells # 0.0 Sodium Level 140 Potassium Level 3.8 Chloride Level 112 H Carbon Dioxide Level 26 Anion Gap 6 #L Blood Urea Nitrogen 11 Creatinine 0.63 Glucose Level 121 # Calcium Level 8.3 L Test 03/30/17 11:53 Bedside Glucose 142 Medications Medications Current Medications Potassium Chloride/Sodium Chloride (NS-KCl 20 Meq) 1,000 ml @ 60 mls/hr [id number] IV Last administered on 03/29/17t 21:03; Admin Dose 60 MLS/HR; Start at 18:50 Lorazepam (Ativan) 0.5 mg Q6H PRN IV ANXIETY; Start 03/20/17 at 19:00 Ondansetron HCl (Zofran Inj) 4 mg Q6H PRN IV NAUSEA AND/OR VOMITING; Start at 19:00 Acetaminophen (Tylenol Tab) 650 mg Q6H PRN PO PAIN LEVEL 1-3 OR FEVER; Start at 19:00 Acetaminophen/ Hydrocodone Bitart ([place] (5/325)) 1 tab Q6H PRN PO PAIN LEVEL 4 -6 Last administered on 03/21/17 16:39; Admin Dose 1 TAB; Start 03/20/17 at 19: 00 Morphine Sulfate (morphine) 2 mg Q4H PRN IV PAIN LEVEL 7-10; Start 03/20/17 at 19:00 Magnesium Hydroxide (Milk Of Mag) 30 ml DAILY PRN PO CONSTIPATION; Start at 19:00 Bisacodyl (Dulcolax) 5 mg DAILY PRN PO CONSTIPATION; Start 03/20/17 at 19:00 Enoxaparin Sodium (Lovenox) 40 mg DAILY SC Last administered on 03/30/17 08:32 ; Admin Dose 40 MG; Start 03/21/17 at 09:00 Cilostazol (Pletal) 100 mg DAILY PO Last administered on 03/30/17 08:29; Admin Dose 100 MG; Start 03/21/17 at 09:00 Eye Lubricant (Artificial Tears Oph) 2 drop BID BOTH EYES Last administered on 03/30/17 08:28; Admin Dose 2 DROP; Start 03/20/17 at 21:00 Docusate Sodium (Colace) 250 mg QHS PO Last administered on 03/27/17 20:37; Admin Dose 250 MG; Start 03/20/17 at 21:00 Escitalopram Oxalate (Lexapro) 10 mg QAM PO Last administered on 03/30/17 08: 29; Admin Dose 10 MG; Start 03/21/17 at 09:00 EZETIMIBE (Zetia) 10 mg DAILY PO Last administered on 03/30/17 08:29; Admin Dose 10 MG; Start 03/21/17 at 09:00 Furosemide (Lasix) 20 mg DAILY PO Last administered on 03/30/17 08:30; Admin Dose 20 MG; Start 03/21/17 at 09:00 Lorazepam (Ativan) 0.5 mg HS PRN PO ANXIETY Last administered on 03/24/17 20: 55; Admin Dose 0.5 MG; Start 03/20/17 at 19:00 Metoprolol Tartrate (Lopressor) 25 mg BID PO Last administered on 03/30/17 08: 31; Admin Dose 25 MG; Start 03/20/17 at 21:00 Senna (Senokot) 1 tab DAILY PRN PO PRN; Start 03/20/17 at 19:00 Atorvastatin Calcium (Lipitor) 10 mg DAILY@21 PO Last administered on 21:04; Admin Dose 10 MG; Start 03/20/17 at 21:00 Miscellaneous Information 1 ea NOTE XX ; Start 03/20/17 at 19:30 Glucose (Glutose) 15 gm Q15M PRN PO DECREASED GLUCOSE; Start 03/20/17 at 19:30 Glucose (Glutose) 22.5 gm Q15M PRN PO DECREASED GLUCOSE; Start 03/20/17 at 19: 30 Dextrose (D50w Syringe) 25 ml Q15M PRN IV DECREASED GLUCOSE; Start 03/20/17 at 19:30 Dextrose (D50w Syringe) 50 ml Q15M PRN IV DECREASED GLUCOSE; Start 03/20/17 at 19:30 Glucagon (Glucagen) 1 mg Q15M PRN IM DECREASED GLUCOSE; Start 03/20/17 at 19:30 Glucose (Glutose) 15 gm Q15M PRN BUCCAL DECREASED GLUCOSE; Start 03/20/17 at 19 :30 Hydralazine HCl (Apresoline) 10 mg Q6H PRN IV SBP>160 Last administered on 03/28 09:07; Admin Dose 10 MG; Start 03/23/17 at 12:00 Polyethylene Glycol (Miralax) 17 gm BID PO Last administered on 03/29/17 08:20 ; Admin Dose 17 GM; Start 03/23/17 at 21:00 Lisinopril (Zestril) 10 mg DAILY PO Last administered on 03/30/17 08:30; Admin Dose 10 MG; Start 03/24/17 at 15:00 Pantoprazole (Protonix Iv) 40 mg BID@06,18 IV Last administered on 03/30/17 06 :10; Admin Dose 40 MG; Start 03/29/17 at 06:00 VALERIO GREEN March 30, 2017 13:38
[2017-03-30] MEDS: NS + KCL 20 MEQ 1,000 ML IV SCH (15:40)
[2017-03-30] MEDS: DOCUSATE SODIUM 250 MG CAP PO SCH (20:25)
[2017-03-30] MEDS: ATORVASTATIN 10 MG TAB PO SCH (20:37)
[2017-03-31] VITALS (12 sets, daily range): BP systolic 126–180; BP diastolic 60–78; PULSE 77–95; RESP 18
[2017-03-31 06:10] LABS: ADD SCAN DIFF NO
[2017-03-31] MEDS: NS + KCL 20 MEQ 1,000 ML IV SCH ×2 (06:14→21:40)
[2017-03-31] MEDS: PANTOPRAZOLE 40 MG INJ IV SCH ×2 (06:14→17:18)
[2017-03-31 06:21] LABS: BASOPHILS % 0.4 % (0.0-2.0); EOSINOPHILS # 0.3 10^3/ul (0.0-0.5); EOSINOPHILS % 3.9 % (0.0-7.0); HEMATOCRIT 31.6 % (37.0-47.0); LYMPHOCYTES # 2.6 10^3/ul (0.8-2.9); LYMPHOCYTES % 34.8 % (15.0-51.0); MEAN CORPUSCULAR HEMOGLOBIN 30.7 pg (29.0-33.0); MEAN CORPUSCULAR HGB CONC 31.6 g/dl (32.0-37.0); MEAN CORPUSCULAR VOLUME 96.9 fl (82.0-101.0); MEAN PLATELET VOLUME 10.6 fl (7.4-10.4); MONOCYTE # 1.2 10^3/ul (0.3-0.9); MONOCYTES % 15.4 % (0.0-11.0); NEUTROPHIL # 3.3 10^3/ul (1.6-7.5); NEUTROPHILS % 44.4 % (39.0-77.0); PLATELET COUNT 188 10^3/UL (140-415); RED BLOOD COUNT 3.26 10^6/ul (4.20-5.40); WHITE BLOOD COUNT 7.5 10^3/ul (4.8-10.8)
[2017-03-31 07:02] LABS: POTASSIUM 4.1 mmol/L (3.5-5.1)
[2017-03-31 07:05] LABS: CALCIUM 8.2 mg/dl (8.4-10.2); CREATININE 0.61 mg/dl (0.44-1.00)
[2017-03-31] MEDS: INSULIN ASPART [NOVOLOG] 3 ML PEN SC SCH ×4 (07:31→21:00)
[2017-03-31] MEDS: ARTIFICIAL TEARS 15 ML OPH BOTH EYES SCH ×2 (08:56→21:03)
[2017-03-31] MEDS: ENOXAPARIN 40 MG/0.4 ML SYG SC SCH (08:57)
[2017-03-31] MEDS: FUROSEMIDE 20 MG TAB PO SCH (08:58)
[2017-03-31] MEDS: METOPROLOL 25 MG TAB PO SCH ×2 (08:58→21:04)
[2017-03-31] MEDS: ESCITALOPRAM 10 MG TAB PO SCH (08:58)
[2017-03-31] MEDS: POLYETHYLENE GLYCOL 17 GM PACKET PO SCH ×2 (08:59→21:03)
[2017-03-31] MEDS: CILOSTAZOL 100 MG TAB PO SCH (08:59)
[2017-03-31] MEDS: LISINOPRIL 10 MG TAB PO SCH (08:59)
[2017-03-31] MEDS: EZETIMIBE 10 MG TAB PO SCH (08:59)
--- NOTE | 2017-03-31 13:08 | PN ---
Date/Time of Note Date/Time of Note DATE: 03/31/17 TIME: 13:07 Assessment/Plan VTE Prophylaxis VTE Prophylaxis Intervention: SCD's Lines/Catheters IV [facility] Type (from [facility]): Saline Lock Urinary Cath still in place: No Assessment/Plan Assessment/Plan Dysphagia * EGD Balloon dilatation Cricopharyngeal bar Post balloon dilatation 15 mm Esophagitis Hiatal hernia Speech modified barium swallow No aspiration during swallowing. Large cricopharyngeal bar. * Diabetes mellitus * Hypertension Plan * follow speech swallow therapy recommendations Subjective 24 Hr Interval Summary Free Text/Dictation * Course reviewed with RN * Patient seen and examined * Patient tolerating soft diet Exam/Review of Systems Vital Signs Vitals Vital Signs Date Time Temp Pulse Resp B/P Pulse Ox O2 Delivery O2 Flow Rate FiO2 03/31/17 12:10 78 03/31/17 11:50 98.0 18 126/60 98 03/28/17 19:54 Room Air 2.0 Intake and Output 03/30/17 03/30/17 03/31/17 14:59 22:59 06:59 Intake Total 660 ml 800 ml Balance 660 ml 800 ml Exam Constitutional: alert, frail Neck: non-tender, supple Respiratory: clear to auscultation, normal air movement Cardiovascular: nl pulses, regular rate and rhythm Gastrointestinal: soft Musculoskeletal: nl extremities to inspection Extremities: normal pulses Skin: nl turgor Results Result Diagram: 03/31/17 0600 03/31/17 0600 Results 24 hrs Laboratory Tests Test 03/30/17 17:29 03/30/17 20:23 03/31/17 06:00 03/31/17 07:30 Bedside Glucose 152 164 111 White Blood Count 7.5 Red Blood Count 3.26 L Hemoglobin 10.0 L Hematocrit 31.6 L Mean Corpuscular Volume 96.9 Mean Corpuscular Hemoglobin 30.7 Mean Corpuscular Hemoglobin Concent 31.6 L Red Cell Distribution Width 14.0 Platelet Count 188 Mean Platelet Volume 10.6 H Neutrophils % 44.4 Lymphocytes % 34.8 Monocytes % 15.4 H Eosinophils % 3.9 Basophils % 0.4 Nucleated Red Blood Cells % 0.0 Neutrophils # 3.3 Lymphocytes # 2.6 Monocytes # 1.2 H Eosinophils # 0.3 Basophils # 0.0 Nucleated Red Blood Cells # 0.0 Sodium Level 139 Potassium Level 4.1 Chloride Level 110 Carbon Dioxide Level 28 Anion Gap 5 L Blood Urea Nitrogen 12 Creatinine 0.61 Glucose Level 120 Calcium Level 8.2 L Test 03/31/17 11:26 Bedside Glucose 128 Medications Medications Current Medications Potassium Chloride/Sodium Chloride (NS-KCl 20 Meq) 1,000 ml @ 60 mls/hr [id number] IV Last administered on 03/31/17 06:14; Admin Dose 60 MLS/HR; Start at 18:50 Lorazepam (Ativan) 0.5 mg Q6H PRN IV ANXIETY; Start 03/20/17 at 19:00 Ondansetron HCl (Zofran Inj) 4 mg Q6H PRN IV NAUSEA AND/OR VOMITING; Start at 19:00 Acetaminophen (Tylenol Tab) 650 mg Q6H PRN PO PAIN LEVEL 1-3 OR FEVER; Start at 19:00 Acetaminophen/ Hydrocodone Bitart ([place] (5/325)) 1 tab Q6H PRN PO PAIN LEVEL 4 -6 Last administered on 03/21/17 16:39; Admin Dose 1 TAB; Start 03/20/17 at 19: 00 Morphine Sulfate (morphine) 2 mg Q4H PRN IV PAIN LEVEL 7-10; Start 03/20/17 at 19:00 Magnesium Hydroxide (Milk Of Mag) 30 ml DAILY PRN PO CONSTIPATION; Start at 19:00 Bisacodyl (Dulcolax) 5 mg DAILY PRN PO CONSTIPATION; Start 03/20/17 at 19:00 Enoxaparin Sodium (Lovenox) 40 mg DAILY SC Last administered on 03/31/17 08:57 ; Admin Dose 40 MG; Start 03/21/17 at 09:00 Cilostazol (Pletal) 100 mg DAILY PO Last administered on 03/31/17 08:59; Admin Dose 100 MG; Start 03/21/17 at 09:00 Eye Lubricant (Artificial Tears Oph) 2 drop BID BOTH EYES Last administered on 03/31/17 08:56; Admin Dose 2 DROP; Start 03/20/17 at 21:00 Docusate Sodium (Colace) 250 mg QHS PO Last administered on 03/27/17 20:37; Admin Dose 250 MG; Start 03/20/17 at 21:00 Escitalopram Oxalate (Lexapro) 10 mg QAM PO Last administered on 03/31/17 08: 58; Admin Dose 10 MG; Start 03/21/17 at 09:00 EZETIMIBE (Zetia) 10 mg DAILY PO Last administered on 03/31/17 08:59; Admin Dose 10 MG; Start 03/21/17 at 09:00 Furosemide (Lasix) 20 mg DAILY PO Last administered on 03/31/17 08:58; Admin Dose 20 MG; Start 03/21/17 at 09:00 Lorazepam (Ativan) 0.5 mg HS PRN PO ANXIETY Last administered on 03/24/17 20: 55; Admin Dose 0.5 MG; Start 03/20/17 at 19:00 Metoprolol Tartrate (Lopressor) 25 mg BID PO Last administered on 03/31/17 08: 58; Admin Dose 25 MG; Start 03/20/17 at 21:00 Senna (Senokot) 1 tab DAILY PRN PO PRN; Start 03/20/17 at 19:00 Atorvastatin Calcium (Lipitor) 10 mg DAILY@21 PO Last administered on 20:37; Admin Dose 10 MG; Start 03/20/17 at 21:00 Miscellaneous Information 1 ea NOTE XX ; Start 03/20/17 at 19:30 Glucose (Glutose) 15 gm Q15M PRN PO DECREASED GLUCOSE; Start 03/20/17 at 19:30 Glucose (Glutose) 22.5 gm Q15M PRN PO DECREASED GLUCOSE; Start 03/20/17 at 19: 30 Dextrose (D50w Syringe) 25 ml Q15M PRN IV DECREASED GLUCOSE; Start 03/20/17 at 19:30 Dextrose (D50w Syringe) 50 ml Q15M PRN IV DECREASED GLUCOSE; Start 03/20/17 at 19:30 Glucagon (Glucagen) 1 mg Q15M PRN IM DECREASED GLUCOSE; Start 03/20/17 at 19:30 Glucose (Glutose) 15 gm Q15M PRN BUCCAL DECREASED GLUCOSE; Start 03/20/17 at 19 :30 Hydralazine HCl (Apresoline) 10 mg Q6H PRN IV SBP>160 Last administered on 03/28 09:07; Admin Dose 10 MG; Start 03/23/17 at 12:00 Polyethylene Glycol (Miralax) 17 gm BID PO Last administered on 03/29/17 08:20 ; Admin Dose 17 GM; Start 03/23/17 at 21:00 Lisinopril (Zestril) 10 mg DAILY PO Last administered on 03/31/17 08:59; Admin Dose 10 MG; Start 03/24/17 at 15:00 Pantoprazole (Protonix Iv) 40 mg BID@,18 IV Last administered on 03/31/17 06 :14; Admin Dose 40 MG; Start 03/29/17 at 06:00 ROXANNE LEWIS MD March 31, 2017 13:08
--- NOTE | 2017-03-31 15:45 | PN ---
Date/Time of Note Date/Time of Note DATE: 03/31/17 TIME: 15:41 Assessment/Plan VTE Prophylaxis VTE Prophylaxis Intervention: LMWH Lines/Catheters IV C[facility]ter Type (from [facility]): Saline Lock Urinary Cath still in place: No Assessment/Plan Assessment/Plan 1. 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 Hypomagnesemia, corrected 3. Dehydration, improved 4. Essential hypertension. start lisinopril 03/24/2017 5. Dyslipidemia. Continue statins. 6. Type 2 diabetes mellitus. The patient was continued on sliding scale insulin. Hemoglobin A1c 6.4. 7. History of congestive heart failure. stable 8. DVT prophylaxis. Subcutaneous Lovenox Exam/Review of Systems Vital Signs Vitals Vital Signs Date Time Temp Pulse Resp B/P Pulse Ox O2 Delivery O2 Flow Rate FiO2 03/31/17 12:10 78 03/31/17 11:50 98.0 18 126/60 98 03/28/17 19:54 Room Air 2.0 Intake and Output 03/30/17 03/30/17 03/31/17 15:00 23:00 07:00 Intake Total 660 ml 800 ml Balance 660 ml 800 ml Exam Constitutional: alert, oriented, well developed Psych: nl mood/affect, no complaints Head: atraumatic, normocephalic Eyes: EOMI, PERRL, nl conjunctiva, nl lids ENMT: nl external ears & nose, nl lips & teeth, nl nasal mucosa & septum Neck: non-tender, supple Respiratory: clear to auscultation, normal air movement, No congested cough, No crackles/rales, No diminished breath sounds, No intercostal retraction, No labored breathing, No other, No respirations, No tactile fremitus, No wheezing Cardiovascular: nl pulses, regular rate and rhythm, No S3, No S4, No bruits, No diastolic murmur, No edema, No gallop, No irregular rhythm, No jugular venous distention (JVD), No murmurs/extra sounds, No other, No rub, No systolic murmur Gastrointestinal: nl liver, spleen, non-tender, soft, No ascites, No bowel sounds, No distended, No firm, No hepatomegaly, No mass , No other, No rebound or guarding, No splenomegaly, No surgical scars, No tender Musculoskeletal: nl extremities to inspection Extremities: normal pulses, No calf tenderness, No clubbing, No cyanosis, No edema, No other, No palpable cord, No pitting pedal edema, No tenderness Neurological: [employer] II-XII intact, nl mental status, nl speech, nl strength Skin: nl turgor Lymph: nl lymph nodes Results Result Diagram: 03/31/17 0600 03/31/17 0600 Results 24 hrs Laboratory Tests Test 03/30/17 17:29 03/30/17 20:23 03/31/17 06:00 03/31/17 07:30 Bedside Glucose 152 164 111 White Blood Count 7.5 Red Blood Count 3.26 L Hemoglobin 10.0 L Hematocrit 31.6 L Mean Corpuscular Volume 96.9 Mean Corpuscular Hemoglobin 30.7 Mean Corpuscular Hemoglobin Concent 31.6 L Red Cell Distribution Width 14.0 Platelet Count 188 Mean Platelet Volume 10.6 H Neutrophils % 44.4 Lymphocytes % 34.8 Monocytes % 15.4 H Eosinophils % 3.9 Basophils % 0.4 Nucleated Red Blood Cells % 0.0 Neutrophils # 3.3 Lymphocytes # 2.6 Monocytes # 1.2 H Eosinophils # 0.3 Basophils # 0.0 Nucleated Red Blood Cells # 0.0 Sodium Level 139 Potassium Level 4.1 Chloride Level 110 Carbon Dioxide Level 28 Anion Gap 5 L Blood Urea Nitrogen 12 Creatinine 0.61 Glucose Level 120 Calcium Level 8.2 L Test 03/31/17 11:26 Bedside Glucose 128 Medications Medications Current Medications Potassium Chloride/Sodium Chloride (NS-KCl 20 Meq) 1,000 ml @ 60 mls/hr [id number] IV Last administered on 03/31/17t 06:14; Admin Dose 60 MLS/HR; Start at 18:50 Lorazepam (Ativan) 0.5 mg Q6H PRN IV ANXIETY; Start 03/20/17 at 19:00 Ondansetron HCl (Zofran Inj) 4 mg Q6H PRN IV NAUSEA AND/OR VOMITING; Start at 19:00 Acetaminophen (Tylenol Tab) 650 mg Q6H PRN PO PAIN LEVEL 1-3 OR FEVER; Start at 19:00 Acetaminophen/ Hydrocodone Bitart ([place] (5/325)) 1 tab Q6H PRN PO PAIN LEVEL 4 -6 Last administered on 03/21/17 16:39; Admin Dose 1 TAB; Start 03/20/17 at 19: 00 Morphine Sulfate (morphine) 2 mg Q4H PRN IV PAIN LEVEL 7-10; Start 03/20/17 at 19:00 Magnesium Hydroxide (Milk Of Mag) 30 ml DAILY PRN PO CONSTIPATION; Start at 19:00 Bisacodyl (Dulcolax) 5 mg DAILY PRN PO CONSTIPATION; Start 03/20/17 at 19:00 Enoxaparin Sodium (Lovenox) 40 mg DAILY SC Last administered on 03/31/17 08:57 ; Admin Dose 40 MG; Start 03/21/17 at 09:00 Cilostazol (Pletal) 100 mg DAILY PO Last administered on 03/31/17 08:59; Admin Dose 100 MG; Start 03/21/17 at 09:00 Eye Lubricant (Artificial Tears Oph) 2 drop BID BOTH EYES Last administered on 03/31/17 08:56; Admin Dose 2 DROP; Start 03/20/17 at 21:00 Docusate Sodium (Colace) 250 mg QHS PO Last administered on 03/27/17 20:37; Admin Dose 250 MG; Start 03/20/17 at 21:00 Escitalopram Oxalate (Lexapro) 10 mg QAM PO Last administered on 03/31/17 08: 58; Admin Dose 10 MG; Start 03/21/17 at 09:00 EZETIMIBE (Zetia) 10 mg DAILY PO Last administered on 03/31/17 08:59; Admin Dose 10 MG; Start 03/21/17 at 09:00 Furosemide (Lasix) 20 mg DAILY PO Last administered on 03/31/17 08:58; Admin Dose 20 MG; Start 03/21/17 at 09:00 Lorazepam (Ativan) 0.5 mg HS PRN PO ANXIETY Last administered on 03/24/17 20: 55; Admin Dose 0.5 MG; Start 03/20/17 at 19:00 Metoprolol Tartrate (Lopressor) 25 mg BID PO Last administered on 03/31/17 08: 58; Admin Dose 25 MG; Start 03/20/17 at 21:00 Senna (Senokot) 1 tab DAILY PRN PO PRN; Start 03/20/17 at 19:00 Atorvastatin Calcium (Lipitor) 10 mg DAILY@21 PO Last administered on 20:37; Admin Dose 10 MG; Start 03/20/17 at 21:00 Miscellaneous Information 1 ea NOTE XX ; Start 03/20/17 at 19:30 Glucose (Glutose) 15 gm Q15M PRN PO DECREASED GLUCOSE; Start 03/20/17 at 19:30 Glucose (Glutose) 22.5 gm Q15M PRN PO DECREASED GLUCOSE; Start 03/20/17 at 19: 30 Dextrose (D50w Syringe) 25 ml Q15M PRN IV DECREASED GLUCOSE; Start 03/20/17 at 19:30 Dextrose (D50w Syringe) 50 ml Q15M PRN IV DECREASED GLUCOSE; Start 03/20/17 at 19:30 Glucagon (Glucagen) 1 mg Q15M PRN IM DECREASED GLUCOSE; Start 03/20/17 at 19:30 Glucose (Glutose) 15 gm Q15M PRN BUCCAL DECREASED GLUCOSE; Start 03/20/17 at 19 :30 Hydralazine HCl (Apresoline) 10 mg Q6H PRN IV SBP>160 Last administered on 03/28 09:07; Admin Dose 10 MG; Start 03/23/17 at 12:00 Polyethylene Glycol (Miralax) 17 gm BID PO Last administered on 03/29/17 08:20 ; Admin Dose 17 GM; Start 03/23/17 at 21:00 Lisinopril (Zestril) 10 mg DAILY PO Last administered on 03/31/17 08:59; Admin Dose 10 MG; Start 03/24/17 at 15:00 Pantoprazole (Protonix Iv) 40 mg BID@,18 IV Last administered on 03/31/17 06 :14; Admin Dose 40 MG; Start 03/29/17 at 06:00 AARTI LEONG MD March 31, 2017 15:45
[2017-03-31] MEDS: ATORVASTATIN 10 MG TAB PO SCH (21:03)
[2017-03-31] MEDS: DOCUSATE SODIUM 250 MG CAP PO SCH (21:03)
[2017-04-01] VITALS (13 sets, daily range): BP systolic 125–140; BP diastolic 59–69; PULSE 73–90; RESP 18–19
[2017-04-01] MEDS: PANTOPRAZOLE 40 MG INJ IV SCH ×2 (05:53→17:26)
[2017-04-01] MEDS: INSULIN ASPART [NOVOLOG] 3 ML PEN SC SCH ×4 (08:00→21:00)
[2017-04-01 08:16] LABS: ADD SCAN DIFF NO
[2017-04-01 08:22] LABS: BASOPHILS % 0.4 % (0.0-2.0); EOSINOPHILS # 0.3 10^3/ul (0.0-0.5); EOSINOPHILS % 3.7 % (0.0-7.0); HEMATOCRIT 32.5 % (37.0-47.0); HEMOGLOBIN 10.3 g/dl (12.0-16.0); LYMPHOCYTES # 2.2 10^3/ul (0.8-2.9); LYMPHOCYTES % 29.4 % (15.0-51.0); MEAN CORPUSCULAR HEMOGLOBIN 31.1 pg (29.0-33.0); MEAN CORPUSCULAR HGB CONC 31.7 g/dl (32.0-37.0); MEAN CORPUSCULAR VOLUME 98.2 fl (82.0-101.0); MEAN PLATELET VOLUME 10.6 fl (7.4-10.4); MONOCYTE # 0.9 10^3/ul (0.3-0.9); MONOCYTES % 12.1 % (0.0-11.0); NEUTROPHIL # 4.1 10^3/ul (1.6-7.5); NEUTROPHILS % 53.5 % (39.0-77.0); PLATELET COUNT 255 10^3/UL (140-415); RED BLOOD COUNT 3.31 10^6/ul (4.20-5.40); RED CELL DISTRIBUTION WIDTH 13.9 % (11.5-14.5); WHITE BLOOD COUNT 7.6 10^3/ul (4.8-10.8)
[2017-04-01] MEDS: POLYETHYLENE GLYCOL 17 GM PACKET PO SCH ×2 (08:34→22:12)
[2017-04-01] MEDS: METOPROLOL 25 MG TAB PO SCH ×2 (08:35→22:14)
[2017-04-01] MEDS: ESCITALOPRAM 10 MG TAB PO SCH (08:35)
[2017-04-01] MEDS: CILOSTAZOL 100 MG TAB PO SCH (08:35)
[2017-04-01] MEDS: LISINOPRIL 10 MG TAB PO SCH (08:35)
[2017-04-01 08:36] LABS: POTASSIUM 4.5 mmol/L (3.5-5.1)
[2017-04-01] MEDS: FUROSEMIDE 20 MG TAB PO SCH (08:36)
[2017-04-01] MEDS: EZETIMIBE 10 MG TAB PO SCH (08:36)
[2017-04-01 08:38] LABS: CREATININE 0.66 mg/dl (0.44-1.00)
[2017-04-01 08:39] LABS: CALCIUM 8.4 mg/dl (8.4-10.2)
[2017-04-01] MEDS: ARTIFICIAL TEARS 15 ML OPH BOTH EYES SCH ×2 (08:39→22:13)
[2017-04-01] MEDS: ENOXAPARIN 40 MG/0.4 ML SYG SC SCH (08:52)
[2017-04-01] MEDS: NS + KCL 20 MEQ 1,000 ML IV SCH (14:08)
--- NOTE | 2017-04-01 16:38 | PN ---
Date/Time of Note Date/Time of Note DATE: 04/01/17 TIME: 16:36 Assessment/Plan VTE Prophylaxis VTE Prophylaxis Intervention: SCD's Lines/Catheters IV C[facility] Type (from [facility] Saline Lock Urinary Cath still in place: No Assessment/Plan Assessment/Plan Dysphagia * EGD Balloon dilatation Cricopharyngeal bar Post balloon dilatation 15 mm Esophagitis Hiatal hernia Speech modified barium swallow No aspiration during swallowing. Large cricopharyngeal bar. * Diabetes mellitus * Hypertension Plan * follow speech swallow therapy recommendation * progress diet Subjective 24 Hr Interval Summary Free Text/Dictation * Course reviewed with RN * patient seen and examined * tolerating diet Exam/Review of Systems Vital Signs Vitals Vital Signs Date Time Temp Pulse Resp B/P Pulse Ox O2 Delivery O2 Flow Rate FiO2 04/01/17 12:14 73 04/01/17 12:00 98.8 19 140/67 97 03/28/17 19:54 Room Air 2.0 Intake and Output 03/31/17 03/31/17 04/01/17 15:00 23:00 07:00 Intake Total 1500 ml 600 ml Balance 1500 ml 600 ml Exam Constitutional: alert Neck: non-tender, supple Respiratory: clear to auscultation, normal air movement Cardiovascular: nl pulses, regular rate and rhythm Gastrointestinal: soft Musculoskeletal: nl extremities to inspection, nl gait and stance Extremities: normal pulses Results Result Diagram: 04/01/17 0730 04/01/17 0730 Results 24 hrs Laboratory Tests Test 03/31/17 17:20 03/31/17 21:02 04/01/17 07:30 04/01/17 08:43 Bedside Glucose 140 176 123 White Blood Count 7.6 Red Blood Count 3.31 L Hemoglobin 10.3 L Hematocrit 32.5 L Mean Corpuscular Volume 98.2 Mean Corpuscular Hemoglobin 31.1 Mean Corpuscular Hemoglobin Concent 31.7 L Red Cell Distribution Width 13.9 Platelet Count 255 # Mean Platelet Volume 10.6 H Neutrophils % 53.5 Lymphocytes % 29.4 Monocytes % 12.1 H Eosinophils % 3.7 Basophils % 0.4 Nucleated Red Blood Cells % 0.0 Neutrophils # 4.1 Lymphocytes # 2.2 Monocytes # 0.9 Eosinophils # 0.3 Basophils # 0.0 Nucleated Red Blood Cells # 0.0 Sodium Level 140 Potassium Level 4.5 Chloride Level 110 Carbon Dioxide Level 28 Anion Gap 7 L Blood Urea Nitrogen 14 Creatinine 0.66 Glucose Level 124 Calcium Level 8.4 Test 04/01/17 12:23 Bedside Glucose 120 Medications Medications Current Medications Potassium Chloride/Sodium Chloride (NS-KCl 20 Meq) 1,000 ml @ 60 mls/hr [id number] IV Last administered on 04/01/17 14:08; Admin Dose 60 MLS/HR; Start at 18:50 Lorazepam (Ativan) 0.5 mg Q6H PRN IV ANXIETY; Start 03/20/17 at 19:00 Ondansetron HCl (Zofran Inj) 4 mg Q6H PRN IV NAUSEA AND/OR VOMITING; Start at 19:00 Acetaminophen (Tylenol Tab) 650 mg Q6H PRN PO PAIN LEVEL 1-3 OR FEVER; Start at 19:00 Acetaminophen/ Hydrocodone Bitart ([place] (5/325)) 1 tab Q6H PRN PO PAIN LEVEL 4 -6 Last administered on 03/21/17 16:39; Admin Dose 1 TAB; Start 03/20/17 at 19: 00 Morphine Sulfate (morphine) 2 mg Q4H PRN IV PAIN LEVEL 7-10; Start 03/20/17 at 19:00 Magnesium Hydroxide (Milk Of Mag) 30 ml DAILY PRN PO CONSTIPATION; Start at 19:00 Bisacodyl (Dulcolax) 5 mg DAILY PRN PO CONSTIPATION; Start 03/20/17 at 19:00 Enoxaparin Sodium (Lovenox) 40 mg DAILY SC Last administered on 04/01/17 08:52 ; Admin Dose 40 MG; Start 03/21/17 at 09:00 Cilostazol (Pletal) 100 mg DAILY PO Last administered on 04/01/17 08:35; Admin Dose 100 MG; Start 03/21/17 at 09:00 Eye Lubricant (Artificial Tears Oph) 2 drop BID BOTH EYES Last administered on 04/01/17 08:39; Admin Dose 2 DROP; Start 03/20/17 at 21:00 Docusate Sodium (Colace) 250 mg QHS PO Last administered on 03/31/17 21:03; Admin Dose 250 MG; Start 03/20/17 at 21:00 Escitalopram Oxalate (Lexapro) 10 mg QAM PO Last administered on 04/01/17 08: 35; Admin Dose 10 MG; Start 03/21/17 at 09:00 EZETIMIBE (Zetia) 10 mg DAILY PO Last administered on 04/01/17 08:36; Admin Dose 10 MG; Start 03/21/17 at 09:00 Furosemide (Lasix) 20 mg DAILY PO Last administered on 04/01/17 08:36; Admin Dose 20 MG; Start 03/21/17 at 09:00 Lorazepam (Ativan) 0.5 mg HS PRN PO ANXIETY Last administered on 03/24/17 20: 55; Admin Dose 0.5 MG; Start 03/20/17 at 19:00 Metoprolol Tartrate (Lopressor) 25 mg BID PO Last administered on 04/01/17 08: 35; Admin Dose 25 MG; Start 03/20/17 at 21:00 Senna (Senokot) 1 tab DAILY PRN PO PRN; Start 03/20/17 at 19:00 Atorvastatin Calcium (Lipitor) 10 mg DAILY@21 PO Last administered on 21:03; Admin Dose 10 MG; Start 03/20/17 at 21:00 Miscellaneous Information 1 ea NOTE XX ; Start 03/20/17 at 19:30 Glucose (Glutose) 15 gm Q15M PRN PO DECREASED GLUCOSE; Start 03/20/17 at 19:30 Glucose (Glutose) 22.5 gm Q15M PRN PO DECREASED GLUCOSE; Start 03/20/17 at 19: 30 Dextrose (D50w Syringe) 25 ml Q15M PRN IV DECREASED GLUCOSE; Start 03/20/17 at 19:30 Dextrose (D50w Syringe) 50 ml Q15M PRN IV DECREASED GLUCOSE; Start 03/20/17 at 19:30 Glucagon (Glucagen) 1 mg Q15M PRN IM DECREASED GLUCOSE; Start 03/20/17 at 19:30 Glucose (Glutose) 15 gm Q15M PRN BUCCAL DECREASED GLUCOSE; Start 03/20/17 at 19 :30 Hydralazine HCl (Apresoline) 10 mg Q6H PRN IV SBP>160 Last administered on 03/28 09:07; Admin Dose 10 MG; Start 03/23/17 at 12:00 Polyethylene Glycol (Miralax) 17 gm BID PO Last administered on 04/01/17 08:34 ; Admin Dose 17 GM; Start 03/23/17 at 21:00 Lisinopril (Zestril) 10 mg DAILY PO Last administered on 04/01/17 08:35; Admin Dose 10 MG; Start 03/24/17 at 15:00 Pantoprazole (Protonix Iv) 40 mg BID@,18 IV Last administered on 04/01/17 05 :53; Admin Dose 40 MG; Start 03/29/17 at 06:00 ROXANNE LEWIS MD April 01, 2017 16:38
--- NOTE | 2017-04-01 16:47 | PN ---
Date/Time of Note Date/Time of Note DATE: 04/01/17 TIME: 16:45 Assessment/Plan VTE Prophylaxis VTE Prophylaxis Intervention: LMWH Lines/Catheters IV [facility] Type [facility]from [facility] Saline Lock Urinary Cath still in place: No Assessment/Plan Assessment/Plan 1. Large cricopharyngea bar with dysphagia - s/p EGD with balloon dilation performed s/p Biopsy - report pending 2. Hypomagnesemia, corrected - monitor 3. Dehydration, improved 4. Essential hypertension. start lisinopril 03/24/2017 5. Dyslipidemia. Continue statins. 6. Type 2 diabetes mellitus. The patient was continued on sliding scale insulin. Hemoglobin A1c 6.4. 7. History of congestive heart failure. sr-table 8. DVT prophylaxis. Subcutaneous Lovenox pt has 10 beats of NSVT, Mag level in AM, K normal today Subjective 24 Hr Interval Summary Free Text/Dictation pt has 10 beats of NSVT, afebrile, BP stable Exam/Review of Systems Vital Signs Vitals Vital Signs Date Time Temp Pulse Resp B/P Pulse Ox O2 Delivery O2 Flow Rate FiO2 04/01/17 12:14 73 04/01/17 12:00 98.8 19 140/67 97 03/28/17 19:54 Room Air 2.0 Intake and Output 03/31/17 03/31/17 04/01/17 15:00 23:00 07:00 Intake Total 1500 ml 600 ml Balance 1500 ml 600 ml Exam Constitutional: alert Psych: no complaints Head: normocephalic ENMT: nl external ears & nose Neck: supple Respiratory: clear to auscultation Cardiovascular: regular rate and rhythm Gastrointestinal: soft Musculoskeletal: nl extremities to inspection Extremities: normal pulses Results Result Diagram: 04/01/1772904/01/17729 Results 24 hrs Laboratory Tests Test 03/31/17 17:20 03/31/17 21:02 04/01/17 07:30 04/01/17 08:43 Bedside Glucose 140 176 123 White Blood Count 7.6 Red Blood Count 3.31 L Hemoglobin 10.3 L Hematocrit 32.5 L Mean Corpuscular Volume 98.2 Mean Corpuscular Hemoglobin 31.1 Mean Corpuscular Hemoglobin Concent 31.7 L Red Cell Distribution Width 13.9 Platelet Count 255 # Mean Platelet Volume 10.6 H Neutrophils % 53.5 Lymphocytes % 29.4 Monocytes % 12.1 H Eosinophils % 3.7 Basophils % 0.4 Nucleated Red Blood Cells % 0.0 Neutrophils # 4.1 Lymphocytes # 2.2 Monocytes # 0.9 Eosinophils # 0.3 Basophils # 0.0 Nucleated Red Blood Cells # 0.0 Sodium Level 140 Potassium Level 4.5 Chloride Level 110 Carbon Dioxide Level 28 Anion Gap 7 L Blood Urea Nitrogen 14 Creatinine 0.66 Glucose Level 124 Calcium Level 8.4 Test 04/01/17 12:23 Bedside Glucose 120 Medications Medications Current Medications Potassium Chloride/Sodium Chloride (NS-KCl 20 Meq) 1,000 ml @ 60 mls/hr [id number] IV Last administered on 04/01/17 14:08; Admin Dose 60 MLS/HR; Start at 18:50 Lorazepam (Ativan) 0.5 mg Q6H PRN IV ANXIETY; Start 03/20/17 at 19:00 Ondansetron HCl (Zofran Inj) 4 mg Q6H PRN IV NAUSEA AND/OR VOMITING; Start at 19:00 Acetaminophen (Tylenol Tab) 650 mg Q6H PRN PO PAIN LEVEL 1-3 OR FEVER; Start at 19:00 Acetaminophen/ Hydrocodone Bitart ([place] (5/325)) 1 tab Q6H PRN PO PAIN LEVEL 4 -6 Last administered on 03/21/17 16:39; Admin Dose 1 TAB; Start 03/20/17 at 19: 00 Morphine Sulfate (morphine) 2 mg Q4H PRN IV PAIN LEVEL 7-10; Start 03/20/17 at 19:00 Magnesium Hydroxide (Milk Of Mag) 30 ml DAILY PRN PO CONSTIPATION; Start at 19:00 Bisacodyl (Dulcolax) 5 mg DAILY PRN PO CONSTIPATION; Start 03/20/17 at 19:00 Enoxaparin Sodium (Lovenox) 40 mg DAILY SC Last administered on 04/01/17 08:52 ; Admin Dose 40 MG; Start 03/21/17 at 09:00 Cilostazol (Pletal) 100 mg DAILY PO Last administered on 04/01/17 08:35; Admin Dose 100 MG; Start 03/21/17 at 09:00 Eye Lubricant (Artificial Tears Oph) 2 drop BID BOTH EYES Last administered on 04/01/17 08:39; Admin Dose 2 DROP; Start 03/20/17 at 21:00 Docusate Sodium (Colace) 250 mg QHS PO Last administered on 03/31/17 21:03; Admin Dose 250 MG; Start 03/20/17 at 21:00 Escitalopram Oxalate (Lexapro) 10 mg QAM PO Last administered on 04/01/17 08: 35; Admin Dose 10 MG; Start 03/21/17 at 09:00 EZETIMIBE (Zetia) 10 mg DAILY PO Last administered on 04/01/17 08:36; Admin Dose 10 MG; Start 03/21/17 at 09:00 Furosemide (Lasix) 20 mg DAILY PO Last administered on 04/01/17 08:36; Admin Dose 20 MG; Start 03/21/17 at 09:00 Lorazepam (Ativan) 0.5 mg HS PRN PO ANXIETY Last administered on 03/24/17 20: 55; Admin Dose 0.5 MG; Start 03/20/17 at 19:00 Metoprolol Tartrate (Lopressor) 25 mg BID PO Last administered on 04/01/17 08: 35; Admin Dose 25 MG; Start 03/20/17 at 21:00 Senna (Senokot) 1 tab DAILY PRN PO PRN; Start 03/20/17 at 19:00 Atorvastatin Calcium (Lipitor) 10 mg DAILY@21 PO Last administered on 21:03; Admin Dose 10 MG; Start 03/20/17 at 21:00 Miscellaneous Information 1 ea NOTE XX ; Start 03/20/17 at 19:30 Glucose (Glutose) 15 gm Q15M PRN PO DECREASED GLUCOSE; Start 03/20/17 at 19:30 Glucose (Glutose) 22.5 gm Q15M PRN PO DECREASED GLUCOSE; Start 03/20/17 at 19: 30 Dextrose (D50w Syringe) 25 ml Q15M PRN IV DECREASED GLUCOSE; Start 03/20/17 at 19:30 Dextrose (D50w Syringe) 50 ml Q15M PRN IV DECREASED GLUCOSE; Start 03/20/17 at 19:30 Glucagon (Glucagen) 1 mg Q15M PRN IM DECREASED GLUCOSE; Start 03/20/17 at 19:30 Glucose (Glutose) 15 gm Q15M PRN BUCCAL DECREASED GLUCOSE; Start 03/20/17 at 19 :30 Hydralazine HCl (Apresoline) 10 mg Q6H PRN IV SBP>160 Last administered on 03/28 09:07; Admin Dose 10 MG; Start 03/23/17 at 12:00 Polyethylene Glycol (Miralax) 17 gm BID PO Last administered on 04/01/17 08:34 ; Admin Dose 17 GM; Start 03/23/17 at 21:00 Lisinopril (Zestril) 10 mg DAILY PO Last administered on 04/01/17 08:35; Admin Dose 10 MG; Start 03/24/17 at 15:00 Pantoprazole (Protonix Iv) 40 mg BID@,18 IV Last administered on 04/01/17 05 :53; Admin Dose 40 MG; Start 03/29/17 at 06:00 OCHOA CAMPOS MD April 01, 2017 16:47
[2017-04-01] MEDS: ATORVASTATIN 10 MG TAB PO SCH (22:13)
[2017-04-01] MEDS: DOCUSATE SODIUM 250 MG CAP PO SCH (22:13)
[2017-04-02] VITALS (12 sets, daily range): BP systolic 130–179; BP diastolic 61–95; PULSE 69–80; RESP 18–20
[2017-04-02] MEDS: NS + KCL 20 MEQ 1,000 ML IV SCH ×2 (06:15→23:30)
[2017-04-02] MEDS: PANTOPRAZOLE 40 MG INJ IV SCH ×2 (06:15→18:39)
[2017-04-02] MEDS: INSULIN ASPART [NOVOLOG] 3 ML PEN SC SCH ×4 (08:00→20:25)
[2017-04-02 08:02] LABS: ADD SCAN DIFF NO
[2017-04-02 08:11] LABS: BASOPHILS % 0.4 % (0.0-2.0); EOSINOPHILS # 0.3 10^3/ul (0.0-0.5); EOSINOPHILS % 3.6 % (0.0-7.0); HEMATOCRIT 32.8 % (37.0-47.0); HEMOGLOBIN 10.4 g/dl (12.0-16.0); LYMPHOCYTES # 2.2 10^3/ul (0.8-2.9); LYMPHOCYTES % 29.1 % (15.0-51.0); MEAN CORPUSCULAR HEMOGLOBIN 30.8 pg (29.0-33.0); MEAN CORPUSCULAR HGB CONC 31.7 g/dl (32.0-37.0); MEAN PLATELET VOLUME 11.3 fl (7.4-10.4); MONOCYTES % 12.6 % (0.0-11.0); NEUTROPHILS % 53.6 % (39.0-77.0); PLATELET COUNT 253 10^3/UL (140-415); RED BLOOD COUNT 3.38 10^6/ul (4.20-5.40); RED CELL DISTRIBUTION WIDTH 13.9 % (11.5-14.5); WHITE BLOOD COUNT 7.5 10^3/ul (4.8-10.8)
[2017-04-02] MEDS: CILOSTAZOL 100 MG TAB PO SCH (08:29)
[2017-04-02] MEDS: POLYETHYLENE GLYCOL 17 GM PACKET PO SCH ×2 (08:29→20:24)
[2017-04-02] MEDS: LISINOPRIL 10 MG TAB PO SCH (08:29)
[2017-04-02] MEDS: METOPROLOL 25 MG TAB PO SCH ×2 (08:30→20:25)
[2017-04-02] MEDS: FUROSEMIDE 20 MG TAB PO SCH (08:30)
[2017-04-02] MEDS: EZETIMIBE 10 MG TAB PO SCH (08:30)
[2017-04-02] MEDS: ESCITALOPRAM 10 MG TAB PO SCH (08:30)
[2017-04-02] MEDS: ARTIFICIAL TEARS 15 ML OPH BOTH EYES SCH ×2 (08:30→20:24)
[2017-04-02] MEDS: ENOXAPARIN 40 MG/0.4 ML SYG SC SCH (08:32)
[2017-04-02 08:37] LABS: CALCIUM 8.3 mg/dl (8.4-10.2); CREATININE 0.62 mg/dl (0.44-1.00); POTASSIUM 4.5 mmol/L (3.5-5.1)
[2017-04-02] MEDS ORDERED: MAGNESIUM SULFATE 3 GM in SOD CHLORIDE 0.9% 100 ML IVPB SCH (12:00)
--- NOTE | 2017-04-02 13:21 | PN ---
Date/Time of Note Date/Time of Note DATE: 04/02/17 TIME: 13:19 Assessment/Plan VTE Prophylaxis VTE Prophylaxis Intervention: SCD's Lines/Catheters IV C[facility]ter Type (from [facility]): Saline Lock Urinary Cath still in place: No Assessment/Plan Assessment/Plan Dysphagia * EGD Balloon dilatation Cricopharyngeal bar Post balloon dilatation 15 mm Esophagitis Hiatal hernia Speech modified barium swallow No aspiration during swallowing. Large cricopharyngeal bar. * Diabetes mellitus * Hypertension Plan * repeat Barium swallow with speech therapy per recommendation of speech therapy prior to giving regular diet * will follow up as needed Subjective 24 Hr Interval Summary Free Text/Dictation * Course reviewed with RN * Patient seen and examined * Tolerating mechanical soft diet Exam/Review of Systems Vital Signs Vitals Vital Signs Date Time Temp Pulse Resp B/P Pulse Ox O2 Delivery O2 Flow Rate FiO2 04/02/17 12:46 79 04/02/17 11:39 97.4 20 144/65 98 Intake and Output 04/01/17 04/01/17 04/02/17 15:00 23:00 07:00 Intake Total 300 ml 1160 ml Balance 300 ml 1160 ml Exam Constitutional: alert, frail Neck: non-tender, supple Respiratory: clear to auscultation, normal air movement Cardiovascular: nl pulses, regular rate and rhythm Gastrointestinal: bowel sounds, non-tender, soft Musculoskeletal: nl extremities to inspection Extremities: normal pulses Results Result Diagram: 04/02/17 0655 04/02/17 0655 Results 24 hrs Laboratory Tests Test 04/01/17 17:20 04/01/17 22:11 04/02/17 06:55 04/02/17 08:09 Bedside Glucose 120 135 117 White Blood Count 7.5 Red Blood Count 3.38 L Hemoglobin 10.4 L Hematocrit 32.8 L Mean Corpuscular Volume 97.0 Mean Corpuscular Hemoglobin 30.8 Mean Corpuscular Hemoglobin Concent 31.7 L Red Cell Distribution Width 13.9 Platelet Count 253 Mean Platelet Volume 11.3 H Neutrophils % 53.6 Lymphocytes % 29.1 Monocytes % 12.6 H Eosinophils % 3.6 Basophils % 0.4 Nucleated Red Blood Cells % 0.0 Neutrophils # 4.0 Lymphocytes # 2.2 Monocytes # 1.0 H Eosinophils # 0.3 Basophils # 0.0 Nucleated Red Blood Cells # 0.0 Sodium Level 133 L Potassium Level 4.5 Chloride Level 103 Carbon Dioxide Level 26 Anion Gap 9 Blood Urea Nitrogen 15 Creatinine 0.62 Glucose Level 119 Calcium Level 8.3 L Magnesium Level 0.9 *L Test 04/02/17 12:11 Bedside Glucose 114 Medications Medications Current Medications Potassium Chloride/Sodium Chloride (NS-KCl 20 Meq) 1,000 ml @ 60 mls/hr [id number] IV Last administered on 04/02/17 06:15; Admin Dose 60 MLS/HR; Start at 18:50 Lorazepam (Ativan) 0.5 mg Q6H PRN IV ANXIETY; Start 03/20/17 at 19:00 Ondansetron HCl (Zofran Inj) 4 mg Q6H PRN IV NAUSEA AND/OR VOMITING; Start at 19:00 Acetaminophen (Tylenol Tab) 650 mg Q6H PRN PO PAIN LEVEL 1-3 OR FEVER; Start at 19:00 Acetaminophen/ Hydrocodone Bitart ([place] (5/325)) 1 tab Q6H PRN PO PAIN LEVEL 4 -6 Last administered on 03/21/17 16:39; Admin Dose 1 TAB; Start 03/20/17 at 19: 00 Morphine Sulfate (morphine) 2 mg Q4H PRN IV PAIN LEVEL 7-10; Start 03/20/17 at 19:00 Magnesium Hydroxide (Milk Of Mag) 30 ml DAILY PRN PO CONSTIPATION; Start at 19:00 Bisacodyl (Dulcolax) 5 mg DAILY PRN PO CONSTIPATION; Start 03/20/17 at 19:00 Enoxaparin Sodium (Lovenox) 40 mg DAILY SC Last administered on 04/02/17 08:32 ; Admin Dose 40 MG; Start 03/21/17 at 09:00 Cilostazol (Pletal) 100 mg DAILY PO Last administered on 04/02/17 08:29; Admin Dose 100 MG; Start 03/21/17 at 09:00 Eye Lubricant (Artificial Tears Oph) 2 drop BID BOTH EYES Last administered on 04/02/17 08:30; Admin Dose 2 DROP; Start 03/20/17 at 21:00 Docusate Sodium (Colace) 250 mg QHS PO Last administered on 04/01/17 22:13; Admin Dose 250 MG; Start 03/20/17 at 21:00 Escitalopram Oxalate (Lexapro) 10 mg QAM PO Last administered on 04/02/17 08: 30; Admin Dose 10 MG; Start 03/21/17 at 09:00 EZETIMIBE (Zetia) 10 mg DAILY PO Last administered on 04/02/17 08:30; Admin Dose 10 MG; Start 03/21/17 at 09:00 Furosemide (Lasix) 20 mg DAILY PO Last administered on 04/02/17 08:30; Admin Dose 20 MG; Start 03/21/17 at 09:00 Lorazepam (Ativan) 0.5 mg HS PRN PO ANXIETY Last administered on 03/24/17 20: 55; Admin Dose 0.5 MG; Start 03/20/17 at 19:00 Metoprolol Tartrate (Lopressor) 25 mg BID PO Last administered on 04/02/17 08: 30; Admin Dose 25 MG; Start 03/20/17 at 21:00 Senna (Senokot) 1 tab DAILY PRN PO PRN; Start 03/20/17 at 19:00 Atorvastatin Calcium (Lipitor) 10 mg DAILY@21 PO Last administered on 22:13; Admin Dose 10 MG; Start 03/20/17 at 21:00 Miscellaneous Information 1 ea NOTE XX ; Start 03/20/17 at 19:30 Glucose (Glutose) 15 gm Q15M PRN PO DECREASED GLUCOSE; Start 03/20/17 at 19:30 Glucose (Glutose) 22.5 gm Q15M PRN PO DECREASED GLUCOSE; Start 03/20/17 at 19: 30 Dextrose (D50w Syringe) 25 ml Q15M PRN IV DECREASED GLUCOSE; Start 03/20/17 at 19:30 Dextrose (D50w Syringe) 50 ml Q15M PRN IV DECREASED GLUCOSE; Start 03/20/17 at 19:30 Glucagon (Glucagen) 1 mg Q15M PRN IM DECREASED GLUCOSE; Start 03/20/17 at 19:30 Glucose (Glutose) 15 gm Q15M PRN BUCCAL DECREASED GLUCOSE; Start 03/20/17 at 19 :30 Hydralazine HCl (Apresoline) 10 mg Q6H PRN IV SBP>160 Last administered on 03/28 09:07; Admin Dose 10 MG; Start 03/23/17 at 12:00 Polyethylene Glycol (Miralax) 17 gm BID PO Last administered on 04/02/17 08:29 ; Admin Dose 17 GM; Start 03/23/17 at 21:00 Lisinopril (Zestril) 10 mg DAILY PO Last administered on 04/02/17 08:29; Admin Dose 10 MG; Start 03/24/17 at 15:00 Pantoprazole 40 mg 40 mg BID@06,18 IV Last administered on 04/02/17 06:15; Admin Dose 40 MG; Start 03/29/17 at 06:00 Magnesium Sulfate/ Sodium Chloride (Magnesium Sulfate/NS) 106 ml @ 35.333 mls/ hr ONCE IVPB Last administered on 04/02/17 11:59; Admin Dose 35.333 MLS/HR; Start 04/02/17 at 12:00; Stop 04/02/17 at 14:59 ROXANNE LEWIS MD April 02, 2017 13:21
--- NOTE | 2017-04-02 13:49 | PN ---
Date/Time of Note Date/Time of Note DATE: 04/02/17 TIME: 13:47 Assessment/Plan VTE Prophylaxis VTE Prophylaxis Intervention: LMWH Lines/Catheters [facility] Saline Lock Urinary Cath still in place: No Assessment/Plan Assessment/Plan 1. 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 Hypomagnesemia,s/p Correction, still it is low 3. Dehydration, improved 4. Essential hypertension. start lisinopril 03/24/2017 5. Dyslipidemia. Continue statins. 6. Type 2 diabetes mellitus. The patient was continued on sliding scale insulin. Hemoglobin A1c 6.4. 7. History of congestive heart failure. sr-table 8. DVT prophylaxis. Subcutaneous Lovenox pt has 10 beats of NSVT, mag level is low today, plan is to give magnesium sulfate 3 gram IV x1 dose now plan for barium swallow today orderd by GI will follow up Subjective 24 Hr Interval Summary Free Text/Dictation Mag low, pt denies chest pain, palpitation Exam/Review of Systems Vital Signs Vitals Vital Signs Date Time Temp Pulse Resp B/P Pulse Ox O2 Delivery O2 Flow Rate FiO2 04/02/17 12:46 79 04/02/17 11:39 97.4 20 144/65 98 Intake and Output 04/01/17 04/01/17 04/02/17 15:00 23:00 07:00 Intake Total 300 ml 1160 ml Balance 300 ml 1160 ml Exam Constitutional: alert Psych: no complaints Head: normocephalic ENMT: nl external ears & nose Neck: supple Respiratory: clear to auscultation Cardiovascular: regular rate and rhythm Gastrointestinal: soft Musculoskeletal: nl extremities to inspection Extremities: normal pulses Results Result Diagram: 04/02/17 0655 04/02/17 0655 Results 24 hrs Laboratory Tests Test 04/01/17 17:20 04/01/17 22:11 04/02/17 06:55 04/02/17 08:09 Bedside Glucose 120 135 117 White Blood Count 7.5 Red Blood Count 3.38 L Hemoglobin 10.4 L Hematocrit 32.8 L Mean Corpuscular Volume 97.0 Mean Corpuscular Hemoglobin 30.8 Mean Corpuscular Hemoglobin Concent 31.7 L Red Cell Distribution Width 13.9 Platelet Count 253 Mean Platelet Volume 11.3 H Neutrophils % 53.6 Lymphocytes % 29.1 Monocytes % 12.6 H Eosinophils % 3.6 Basophils % 0.4 Nucleated Red Blood Cells % 0.0 Neutrophils # 4.0 Lymphocytes # 2.2 Monocytes # 1.0 H Eosinophils # 0.3 Basophils # 0.0 Nucleated Red Blood Cells # 0.0 Sodium Level 133 L Potassium Level 4.5 Chloride Level 103 Carbon Dioxide Level 26 Anion Gap 9 Blood Urea Nitrogen 15 Creatinine 0.62 Glucose Level 119 Calcium Level 8.3 L Magnesium Level 0.9 *L Test 04/02/17 12:11 Bedside Glucose 114 Medications Medications Current Medications Potassium Chloride/Sodium Chloride (NS-KCl 20 Meq) 1,000 ml @ 60 mls/hr [id number] IV Last administered on 04/02/17 06:15; Admin Dose 60 MLS/HR; Start at 18:50 Lorazepam (Ativan) 0.5 mg Q6H PRN IV ANXIETY; Start 03/20/17 at 19:00 Ondansetron HCl (Zofran Inj) 4 mg Q6H PRN IV NAUSEA AND/OR VOMITING; Start at 19:00 Acetaminophen (Tylenol Tab) 650 mg Q6H PRN PO PAIN LEVEL 1-3 OR FEVER; Start at 19:00 Acetaminophen/ Hydrocodone Bitart ([place] (5/325)) 1 tab Q6H PRN PO PAIN LEVEL 4 -6 Last administered on 03/21/17 16:39; Admin Dose 1 TAB; Start 03/20/17 at 19: 00 Morphine Sulfate (morphine) 2 mg Q4H PRN IV PAIN LEVEL 7-10; Start 03/20/17 at 19:00 Magnesium Hydroxide (Milk Of Mag) 30 ml DAILY PRN PO CONSTIPATION; Start at 19:00 Bisacodyl (Dulcolax) 5 mg DAILY PRN PO CONSTIPATION; Start 03/20/17 at 19:00 Enoxaparin Sodium (Lovenox) 40 mg DAILY SC Last administered on 04/02/17 08:32 ; Admin Dose 40 MG; Start 03/21/17 at 09:00 Cilostazol (Pletal) 100 mg DAILY PO Last administered on 04/02/17 08:29; Admin Dose 100 MG; Start 03/21/17 at 09:00 Eye Lubricant (Artificial Tears Oph) 2 drop BID BOTH EYES Last administered on 04/02/17 08:30; Admin Dose 2 DROP; Start 03/20/17 at 21:00 Docusate Sodium (Colace) 250 mg QHS PO Last administered on 04/01/17 22:13; Admin Dose 250 MG; Start 03/20/17 at 21:00 Escitalopram Oxalate (Lexapro) 10 mg QAM PO Last administered on 04/02/17 08: 30; Admin Dose 10 MG; Start 03/21/17 at 09:00 EZETIMIBE (Zetia) 10 mg DAILY PO Last administered on 04/02/17 08:30; Admin Dose 10 MG; Start 03/21/17 at 09:00 Furosemide (Lasix) 20 mg DAILY PO Last administered on 04/02/17 08:30; Admin Dose 20 MG; Start 03/21/17 at 09:00 Lorazepam (Ativan) 0.5 mg HS PRN PO ANXIETY Last administered on 03/24/17 20: 55; Admin Dose 0.5 MG; Start 03/20/17 at 19:00 Metoprolol Tartrate (Lopressor) 25 mg BID PO Last administered on 04/02/17 08: 30; Admin Dose 25 MG; Start 03/20/17 at 21:00 Senna (Senokot) 1 tab DAILY PRN PO PRN; Start 03/20/17 at 19:00 Atorvastatin Calcium (Lipitor) 10 mg DAILY@21 PO Last administered on 22:13; Admin Dose 10 MG; Start 03/20/17 at 21:00 Miscellaneous Information 1 ea NOTE XX ; Start 03/20/17 at 19:30 Glucose (Glutose) 15 gm Q15M PRN PO DECREASED GLUCOSE; Start 03/20/17 at 19:30 Glucose (Glutose) 22.5 gm Q15M PRN PO DECREASED GLUCOSE; Start 03/20/17 at 19: 30 Dextrose (D50w Syringe) 25 ml Q15M PRN IV DECREASED GLUCOSE; Start 03/20/17 at 19:30 Dextrose (D50w Syringe) 50 ml Q15M PRN IV DECREASED GLUCOSE; Start 03/20/17 at 19:30 Glucagon (Glucagen) 1 mg Q15M PRN IM DECREASED GLUCOSE; Start 03/20/17 at 19:30 Glucose (Glutose) 15 gm Q15M PRN BUCCAL DECREASED GLUCOSE; Start 03/20/17 at 19 :30 Hydralazine HCl (Apresoline) 10 mg Q6H PRN IV SBP>160 Last administered on 03/28 09:07; Admin Dose 10 MG; Start 03/23/17 at 12:00 Polyethylene Glycol (Miralax) 17 gm BID PO Last administered on 04/02/17 08:29 ; Admin Dose 17 GM; Start 03/23/17 at 21:00 Lisinopril (Zestril) 10 mg DAILY PO Last administered on 04/02/17 08:29; Admin Dose 10 MG; Start 03/24/17 at 15:00 Pantoprazole 40 mg 40 mg BID@06,18 IV Last administered on 04/02/17 06:15; Admin Dose 40 MG; Start 03/29/17 at 06:00 Magnesium Sulfate/ Sodium Chloride (Magnesium Sulfate/NS) 106 ml @ 35.333 mls/ hr ONCE IVPB Last administered on 04/02/17 11:59; Admin Dose 35.333 MLS/HR; Start 04/02/17 at 12:00; Stop 04/02/17 at 14:59 OCHOA CAMPOS MD April 02, 2017 13:49
[2017-04-02] MEDS: DOCUSATE SODIUM 250 MG CAP PO SCH (20:24)
[2017-04-02] MEDS: ATORVASTATIN 10 MG TAB PO SCH (20:24)
[2017-04-03] VITALS (12 sets, daily range): BP systolic 128–187; BP diastolic 58–79; PULSE 50–71; RESP 18–20
[2017-04-03] MEDS: PANTOPRAZOLE 40 MG INJ IV SCH ×2 (05:55→18:00)
[2017-04-03] MEDS: INSULIN ASPART [NOVOLOG] 3 ML PEN SC SCH ×2 (08:00→12:00)
[2017-04-03] MEDS: CILOSTAZOL 100 MG TAB PO SCH (08:41)
[2017-04-03] MEDS: POLYETHYLENE GLYCOL 17 GM PACKET PO SCH ×2 (08:42→21:25)
[2017-04-03] MEDS: FUROSEMIDE 20 MG TAB PO SCH (08:42)
[2017-04-03] MEDS: LISINOPRIL 10 MG TAB PO SCH (08:42)
[2017-04-03] MEDS: ESCITALOPRAM 10 MG TAB PO SCH (08:42)
[2017-04-03] MEDS: EZETIMIBE 10 MG TAB PO SCH (08:42)
[2017-04-03] MEDS: ARTIFICIAL TEARS 15 ML OPH BOTH EYES SCH ×2 (08:42→21:25)
[2017-04-03] MEDS: METOPROLOL 25 MG TAB PO SCH ×2 (08:43→21:25)
[2017-04-03] MEDS: ENOXAPARIN 40 MG/0.4 ML SYG SC SCH (08:44)
[2017-04-03 12:27] LABS: POTASSIUM 4.5 mmol/L (3.5-5.1)
[2017-04-03 12:31] LABS: CALCIUM 9.1 mg/dl (8.4-10.2); CREATININE 0.53 mg/dl (0.44-1.00)
[2017-04-03 12:35] LABS: MAGNESIUM 1.6 mg/dl (1.7-2.5); PHOSPHORUS 3.6 mg/dl (2.5-4.9)
--- NOTE | 2017-04-03 17:11 | PN ---
Date/Time of Note Date/Time of Note DATE: 04/03/17 TIME: 17:08 Assessment/Plan VTE Prophylaxis VTE Prophylaxis Intervention: LMWH Lines/Catheters [facility] Peripheral IV Urinary Cath still in place: No Assessment/Plan Assessment/Plan 1. 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 Hypomagnesemia,s/p Correction, still it is low 3. Dehydration, improved 4. Essential hypertension. start lisinopril 03/24/2017 5. Dyslipidemia. Continue statins. 6. Type 2 diabetes mellitus. The patient was continued on sliding scale insulin. Hemoglobin A1c 6.4. 7. History of congestive heart failure. sr-table 8. DVT prophylaxis. Subcutaneous Lovenox s/P magnesium replacement yesterday, now mag level 1.6- will give another magensium sulfate 2 gram IV x 1 dose now plan for repeat Barium swallow study today will follow up ok not to have IV access - possible plan for D/c tomorrow if pt stable and barium swallow negative Subjective 24 Hr Interval Summary Free Text/Dictation stable, tele rthythm normal, no chest pain Exam/Review of Systems Vital Signs Vitals Vital Signs Date Time Temp Pulse Resp B/P Pulse Ox O2 Delivery O2 Flow Rate FiO2 04/03/17 16:41 65 04/03/17 16:04 97.5 18 142/67 98 04/02/17 20:00 Nasal Cannula 2.0 Intake and Output 04/02/17 04/02/17 04/03/17 15:00 23:00 07:00 Intake Total 106 ml 1020 ml 920 ml Balance 106 ml 1020 ml 920 ml Exam Constitutional: alert Psych: no complaints Head: normocephalic ENMT: nl external ears & nose Neck: supple Respiratory: clear to auscultation Cardiovascular: regular rate and rhythm Gastrointestinal: soft Musculoskeletal: nl extremities to inspection Extremities: normal pulses Results Result Diagram: 04/02/17 0655 04/03/17 1110 Results 24 hrs Laboratory Tests Test 04/02/17 20:23 04/03/17 08:37 04/03/17 11:10 Bedside Glucose 151 123 Sodium Level 131 L Potassium Level 4.5 Chloride Level 102 Carbon Dioxide Level 22 Anion Gap 12 Blood Urea Nitrogen 14 Creatinine 0.53 Glucose Level 160 Calcium Level 9.1 Phosphorus Level 3.6 Magnesium Level 1.6 L Medications Medications Current Medications Lorazepam (Ativan) 0.5 mg Q6H PRN IV ANXIETY; Start 03/20/17 at 19:00 Ondansetron HCl (Zofran Inj) 4 mg Q6H PRN IV NAUSEA AND/OR VOMITING; Start at 19:00 Acetaminophen (Tylenol Tab) 650 mg Q6H PRN PO PAIN LEVEL 1-3 OR FEVER; Start at 19:00 Acetaminophen/ Hydrocodone Bitart ([place] (5/325)) 1 tab Q6H PRN PO PAIN LEVEL 4 -6 Last administered on 03/21/17 16:39; Admin Dose 1 TAB; Start 03/20/17 at 19: 00 Morphine Sulfate (morphine) 2 mg Q4H PRN IV PAIN LEVEL 7-10; Start 03/20/17 at 19:00 Magnesium Hydroxide (Milk Of Mag) 30 ml DAILY PRN PO CONSTIPATION; Start at 19:00 Bisacodyl (Dulcolax) 5 mg DAILY PRN PO CONSTIPATION; Start 03/20/17 at 19:00 Enoxaparin Sodium (Lovenox) 40 mg DAILY SC Last administered on 04/03/17 08:44 ; Admin Dose 40 MG; Start 03/21/17 at 09:00 Cilostazol (Pletal) 100 mg DAILY PO Last administered on 04/03/17 08:41; Admin Dose 100 MG; Start 03/21/17 at 09:00 Eye Lubricant (Artificial Tears Oph) 2 drop BID BOTH EYES Last administered on 04/03/17 08:42; Admin Dose 2 DROP; Start 03/20/17 at 21:00 Docusate Sodium (Colace) 250 mg QHS PO Last administered on 04/02/17 20:24; Admin Dose 250 MG; Start 03/20/17 at 21:00 Escitalopram Oxalate (Lexapro) 10 mg QAM PO Last administered on 04/03/17 08:42 ; Admin Dose 10 MG; Start 03/21/17 at 09:00 EZETIMIBE (Zetia) 10 mg DAILY PO Last administered on 04/03/17 08:42; Admin Dose 10 MG; Start 03/21/17 at 09:00 Furosemide (Lasix) 20 mg DAILY PO Last administered on 04/03/17 08:42; Admin Dose 20 MG; Start 03/21/17 at 09:00 Lorazepam (Ativan) 0.5 mg HS PRN PO ANXIETY Last administered on 03/24/17 20: 55; Admin Dose 0.5 MG; Start 03/20/17 at 19:00 Metoprolol Tartrate (Lopressor) 25 mg BID PO Last administered on 04/03/17 08: 43; Admin Dose 25 MG; Start 03/20/17 at 21:00 Senna (Senokot) 1 tab DAILY PRN PO PRN; Start 03/20/17 at 19:00 Atorvastatin Calcium (Lipitor) 10 mg DAILY@21 PO Last administered on 20:24; Admin Dose 10 MG; Start 03/20/17 at 21:00 Miscellaneous Information 1 ea NOTE XX ; Start 03/20/17 at 19:30 Glucose (Glutose) 15 gm Q15M PRN PO DECREASED GLUCOSE; Start 03/20/17 at 19:30 Glucose (Glutose) 22.5 gm Q15M PRN PO DECREASED GLUCOSE; Start 03/20/17 at 19: 30 Dextrose (D50w Syringe) 25 ml Q15M PRN IV DECREASED GLUCOSE; Start 03/20/17 at 19:30 Dextrose (D50w Syringe) 50 ml Q15M PRN IV DECREASED GLUCOSE; Start 03/20/17 at 19:30 Glucagon (Glucagen) 1 mg Q15M PRN IM DECREASED GLUCOSE; Start 03/20/17 at 19:30 Glucose (Glutose) 15 gm Q15M PRN BUCCAL DECREASED GLUCOSE; Start 03/20/17 at 19 :30 Hydralazine HCl (Apresoline) 10 mg Q6H PRN IV SBP>160 Last administered on 03/28 09:07; Admin Dose 10 MG; Start 03/23/17 at 12:00 Polyethylene Glycol (Miralax) 17 gm BID PO Last administered on 04/03/17 08:42 ; Admin Dose 17 GM; Start 03/23/17 at 21:00 Lisinopril (Zestril) 10 mg DAILY PO Last administered on 04/03/17 08:42; Admin Dose 10 MG; Start 03/24/17 at 15:00 Pantoprazole (Protonix Iv) 40 mg BID@18 IV Last administered on 04/02/17t 18 :39; Admin Dose 40 MG; Start 03/29/17 at 06:00 OCHOA CAMPOS MD Apr 03, 2017 17:11
[2017-04-03] MEDS ORDERED: MAGNESIUM SULFATE 2 GM/50 ML 50 ML IVPB ONE (17:30)
[2017-04-03] MEDS: ATORVASTATIN 10 MG TAB PO SCH (21:25)
[2017-04-03] MEDS: DOCUSATE SODIUM 250 MG CAP PO SCH (21:25)
[2017-04-04] VITALS (13 sets, daily range): BP systolic 104–144; BP diastolic 54–65; PULSE 61–96; RESP 18–20
[2017-04-04] MEDS: PANTOPRAZOLE 40 MG INJ IV SCH ×2 (06:20→17:35)
[2017-04-04 07:52] LABS: CALCIUM 9.5 mg/dl (8.4-10.2); CREATININE 0.67 mg/dl (0.44-1.00); POTASSIUM 4.4 mmol/L (3.5-5.1)
[2017-04-04] MEDS ORDERED: LIDOCAINE 1% (MPF) 5 ML VIAL SC ONE ×2 (09:00)
[2017-04-04] MEDS: EZETIMIBE 10 MG TAB PO SCH (09:55)
[2017-04-04] MEDS: ESCITALOPRAM 10 MG TAB PO SCH (09:57)
[2017-04-04] MEDS: METOPROLOL 25 MG TAB PO SCH ×2 (09:57→20:54)
[2017-04-04] MEDS: POLYETHYLENE GLYCOL 17 GM PACKET PO SCH ×2 (09:57→20:53)
[2017-04-04] MEDS: FUROSEMIDE 20 MG TAB PO SCH (09:57)
[2017-04-04] MEDS: LISINOPRIL 10 MG TAB PO SCH (09:57)
[2017-04-04] MEDS: ARTIFICIAL TEARS 15 ML OPH BOTH EYES SCH ×2 (09:58→21:49)
[2017-04-04] MEDS: ENOXAPARIN 40 MG/0.4 ML SYG SC SCH (09:58)
[2017-04-04] MEDS: CILOSTAZOL 100 MG TAB PO SCH (10:01)
--- NOTE | 2017-04-04 11:31 | RADRPT ---
PROCEDURE: Video swallow examination of the esophagus CLINICAL INDICATION: aspiration TECHNIQUE: Real time video fluoroscopy of the lateral neck was performed. The patient was given b arium in multiple different consistencies by the speech pathologist. Fluoroscopy time: 1.2 minutes COMPARISON: Barium swallow study from 03/25/2017 FINDINGS: No penetration or aspiration is identified. A large cricopharyngeal bar is again identified. IMPRESSION: No evidence of aspiration or significant laryngeal penetration. Redemonstration of cricopharyngeal bar. Please refer to the speech pathology notes for more information and recommendations. RPTAT: KK Physician Fritz Date Time Electronically viewed and signed by Physician Fritz on 04/04/2017 11:30 RA/
--- NOTE | 2017-04-04 11:59 | PN ---
Date/Time of Note Date/Time of Note DATE: 04/04/17 TIME: 11:58 Assessment/Plan VTE Prophylaxis VTE Prophylaxis Intervention: SCD's Lines/Catheters IV Catheter Type (from Nrs): Saline Lock Urinary Cath still in place: No Assessment/Plan Assessment/Plan 1. 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 Hypomagnesemia,s/p Correction, still it is low 3. Dehydration, improved 4. Essential hypertension. start lisinopril 03/24/2017 5. Dyslipidemia. Continue statins. 6. Type 2 diabetes mellitus. The patient was continued on sliding scale insulin. Hemoglobin A1c 6.4. 7. History of congestive heart failure. sr-table 8. DVT prophylaxis. Subcutaneous Lovenox s/P magnesium replacement yesterday, now mag level 1.6- will give another magensium sulfate 2 gram IV x 1 dose now d/c plan today as arranged by major case detective Subjective 24 Hr Interval Summary Free Text/Dictation doing ok, electrolytes stabel, downgraded to med/surge floor Exam/Review of Systems Vital Signs Vitals Vital Signs Date Time Temp Pulse Resp B/P Pulse Ox O2 Delivery O2 Flow Rate FiO2 04/04/17 08:27 61 04/04/17 07:54 97.8 18 144/65 97 04/03/17 20:00 Nasal Cannula 2.0 Intake and Output 04/03/17 04/03/17 04/04/17 15:00 23:00 07:00 Intake Total 740 ml 100 ml Balance 740 ml 100 ml Exam Constitutional: alert Psych: no complaints Head: normocephalic ENMT: nl external ears & nose Neck: supple Respiratory: clear to auscultation Cardiovascular: regular rate and rhythm Gastrointestinal: soft Musculoskeletal: nl extremities to inspection Extremities: normal pulses Results Result Diagram: 04/02/17 0655 04/04/17 0530 Results 24 hrs Laboratory Tests Test 04/04/17 05:30 Sodium Level 137 Potassium Level 4.4 Chloride Level 99 Carbon Dioxide Level 27 Anion Gap 15 Blood Urea Nitrogen 16 Creatinine 0.67 Glucose Level 134 Calcium Level 9.5 Magnesium Level 1.9 Medications Medications Current Medications Lorazepam (Ativan) 0.5 mg Q6H PRN IV ANXIETY; Start 03/20/17 at 19:00 Ondansetron HCl (Zofran Inj) 4 mg Q6H PRN IV NAUSEA AND/OR VOMITING; Start at 19:00 Acetaminophen (Tylenol Tab) 650 mg Q6H PRN PO PAIN LEVEL 1-3 OR FEVER; Start at 19:00 Acetaminophen/ Hydrocodone Bitart ([place] (5/325)) 1 tab Q6H PRN PO PAIN LEVEL 4 -6 Last administered on 03/21/17 16:39; Admin Dose 1 TAB; Start 03/20/17 at 19: 00 Morphine Sulfate (morphine) 2 mg Q4H PRN IV PAIN LEVEL 7-10; Start 03/20/17 at 19:00 Magnesium Hydroxide (Milk Of Mag) 30 ml DAILY PRN PO CONSTIPATION; Start at 19:00 Bisacodyl (Dulcolax) 5 mg DAILY PRN PO CONSTIPATION; Start 03/20/17 at 19:00 Enoxaparin Sodium (Lovenox) 40 mg DAILY SC Last administered on 04/04/17 09:58 ; Admin Dose 40 MG; Start 03/21/17 at 09:00 Cilostazol (Pletal) 100 mg DAILY PO Last administered on 04/04/17 10:01; Admin Dose 100 MG; Start 03/21/17 at 09:00 Eye Lubricant (Artificial Tears Oph) 2 drop BID BOTH EYES Last administered on 04/04/17 09:58; Admin Dose 2 DROP; Start 03/20/17 at 21:00 Docusate Sodium (Colace) 250 mg QHS PO Last administered on 04/03/17 21:25; Admin Dose 250 MG; Start 03/20/17 at 21:00 Escitalopram Oxalate (Lexapro) 10 mg QAM PO Last administered on 04/04/17 09:57 ; Admin Dose 10 MG; Start 03/21/17 at 09:00 EZETIMIBE (Zetia) 10 mg DAILY PO Last administered on 04/04/17 09:55; Admin Dose 10 MG; Start 03/21/17 at 09:00 Furosemide (Lasix) 20 mg DAILY PO Last administered on 04/04/17 09:57; Admin Dose 20 MG; Start 03/21/17 at 09:00 Lorazepam (Ativan) 0.5 mg HS PRN PO ANXIETY Last administered on 03/24/17 20: 55; Admin Dose 0.5 MG; Start 03/20/17 at 19:00 Metoprolol Tartrate (Lopressor) 25 mg BID PO Last administered on 04/04/17 09: 57; Admin Dose 25 MG; Start 03/20/17 at 21:00 Senna (Senokot) 1 tab DAILY PRN PO PRN; Start 03/20/17 at 19:00 Atorvastatin Calcium (Lipitor) 10 mg DAILY@21 PO Last administered on 04/03/17 21:25; Admin Dose 10 MG; Start 03/20/17 at 21:00 Miscellaneous Information 1 ea NOTE XX ; Start 03/20/17 at 19:30 Glucose (Glutose) 15 gm Q15M PRN PO DECREASED GLUCOSE; Start 03/20/17 at 19:30 Glucose (Glutose) 22.5 gm Q15M PRN PO DECREASED GLUCOSE; Start 03/20/17 at 19: 30 Dextrose (D50w Syringe) 25 ml Q15M PRN IV DECREASED GLUCOSE; Start 03/20/17 at 19:30 Dextrose (D50w Syringe) 50 ml Q15M PRN IV DECREASED GLUCOSE; Start 03/20/17 at 19:30 Glucagon (Glucagen) 1 mg Q15M PRN IM DECREASED GLUCOSE; Start 03/20/17 at 19:30 Glucose (Glutose) 15 gm Q15M PRN BUCCAL DECREASED GLUCOSE; Start 03/20/17 at 19 :30 Hydralazine HCl (Apresoline) 10 mg Q6H PRN IV SBP>160 Last administered on 03/28 09:07; Admin Dose 10 MG; Start 03/23/17 at 12:00 Polyethylene Glycol (Miralax) 17 gm BID PO Last administered on 04/04/17 09:57 ; Admin Dose 17 GM; Start 03/23/17 at 21:00 Lisinopril (Zestril) 10 mg DAILY PO Last administered on 04/04/17 09:57; Admin Dose 10 MG; Start 03/24/17 at 15:00 Pantoprazole (Protonix Iv) 40 mg BID@ IV Last administered on 04/04/17 06: 20; Admin Dose 40 MG; Start 03/29/17 at 06:00 OCHOA CAMPOS MD Apr 04, 2017 11:59
--- NOTE | 2017-04-04 12:02 | PDOCDIS ---
Discharge Instructions CONDITION Patient Condition: Good HOME CARE INSTRUCTIONS: Special Diet: PUREED ACTIVITY: Activity Restrictions: Slowly Increase Activity Rest between Activity Avoid heavy lifting Avoid Heavy Housework FOLLOW UP/APPOINTMENTS Appointments Follow up with her own PMD through HMO insurance in 1-2 week after discharge. OCHOA CAMPOS MD Apr 04, 2017 12:02
[2017-04-04] MEDS ORDERED: LISI10TA2 PO (12:07)
[2017-04-04] MEDS ORDERED: LORAZEPAM 0.5 MG TAB PO PRN (16:00)
[2017-04-04] MEDS: DOCUSATE SODIUM 250 MG CAP PO SCH (20:52)
[2017-04-04] MEDS: ATORVASTATIN 10 MG TAB PO SCH (20:52)
[2017-04-05] VITALS (10 sets, daily range): BP systolic 108–146; BP diastolic 53–78; PULSE 61–89; RESP 16–20
[2017-04-05] MEDS: PANTOPRAZOLE 40 MG INJ IV SCH ×2 (05:48→17:48)
[2017-04-05] MEDS: CILOSTAZOL 100 MG TAB PO SCH (08:42)
[2017-04-05] MEDS: LISINOPRIL 10 MG TAB PO SCH (08:43)
[2017-04-05] MEDS: EZETIMIBE 10 MG TAB PO SCH (08:43)
[2017-04-05] MEDS: FUROSEMIDE 20 MG TAB PO SCH (08:43)
[2017-04-05] MEDS: ESCITALOPRAM 10 MG TAB PO SCH (08:43)
[2017-04-05] MEDS: METOPROLOL 25 MG TAB PO SCH ×2 (08:43→20:34)
[2017-04-05] MEDS: ARTIFICIAL TEARS 15 ML OPH BOTH EYES SCH ×2 (08:44→20:33)
[2017-04-05] MEDS: ENOXAPARIN 40 MG/0.4 ML SYG SC SCH (08:45)
[2017-04-05] MEDS: POLYETHYLENE GLYCOL 17 GM PACKET PO SCH ×2 (08:49→20:33)
--- NOTE | 2017-04-05 14:44 | PN ---
Date/Time of Note Date/Time of Note DATE: 04/05/17 TIME: 14:42 Assessment/Plan VTE Prophylaxis VTE Prophylaxis Intervention: LMWH Lines/Catheters IV Catheter Type (from Nrsg): Saline Lock Urinary Cath still in place: No Assessment/Plan Assessment/Plan 1. 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 Hypomagnesemia,s/p Correction, still it is low 3. Dehydration, improved 4. Essential hypertension. start lisinopril 03/24/2017 5. Dyslipidemia. Continue statins. 6. Type 2 diabetes mellitus. The patient was continued on sliding scale insulin. Hemoglobin A1c 6.4. 7. History of congestive heart failure. sr-table 8. DVT prophylaxis. Subcutaneous Lovenox no chest pain Downgrade to med/surge floor possibel d/c in next 1-2 days Subjective 24 Hr Interval Summary Free Text/Dictation no chest pain, BP stable, afebrile Exam/Review of Systems Vital Signs Vitals Vital Signs Date Time Temp Pulse Resp B/P Pulse Ox O2 Delivery O2 Flow Rate FiO2 04/05/17 12:07 63 04/05/17 11:51 98.2 19 114/56 96 04/05/17 07:30 Nasal Cannula 2.0 Intake and Output 04/04/17 04/04/17 04/05/17 15:00 23:00 07:00 Intake Total 800 ml 120 ml Balance 800 ml 120 ml Exam Constitutional: alert Psych: no complaints Head: normocephalic ENMT: nl external ears & nose Neck: supple Respiratory: clear to auscultation Cardiovascular: regular rate and rhythm Gastrointestinal: soft Musculoskeletal: nl extremities to inspection Extremities: normal pulses Results Result Diagram: 04/02/17 0655 04/04/17 0530 Medications Medications Current Medications Ondansetron HCl (Zofran Inj) 4 mg Q6H PRN IV NAUSEA AND/OR VOMITING; Start at 19:00 Acetaminophen (Tylenol Tab) 650 mg Q6H PRN PO PAIN LEVEL 1-3 OR FEVER; Start at 19:00 Acetaminophen/ Hydrocodone Bitart ([place] (5/325)) 1 tab Q6H PRN PO PAIN LEVEL 4 -6 Last administered on 03/21/17 16:39; Admin Dose 1 TAB; Start 03/20/17 at 19: 00 Morphine Sulfate (morphine) 2 mg Q4H PRN IV PAIN LEVEL 7-10; Start 03/20/17 at 19:00 Magnesium Hydroxide (Milk Of Mag) 30 ml DAILY PRN PO CONSTIPATION; Start at 19:00 Bisacodyl (Dulcolax) 5 mg DAILY PRN PO CONSTIPATION; Start 03/20/17 at 19:00 Enoxaparin Sodium (Lovenox) 40 mg DAILY SC Last administered on 04/05/17 08:45 ; Admin Dose 40 MG; Start 03/21/17 at 09:00 Cilostazol (Pletal) 100 mg DAILY PO Last administered on 04/05/17 08:42; Admin Dose 100 MG; Start 03/21/17 at 09:00 Eye Lubricant (Artificial Tears Oph) 2 drop BID BOTH EYES Last administered on 04/05/17 08:44; Admin Dose 2 DROP; Start 03/20/17 at 21:00 Docusate Sodium (Colace) 250 mg QHS PO Last administered on 04/04/17 20:52; Admin Dose 250 MG; Start 03/20/17 at 21:00 Escitalopram Oxalate (Lexapro) 10 mg QAM PO Last administered on 04/05/17 08:43 ; Admin Dose 10 MG; Start 03/21/17 at 09:00 EZETIMIBE (Zetia) 10 mg DAILY PO Last administered on 04/05/17 08:43; Admin Dose 10 MG; Start 03/21/17 at 09:00 Furosemide (Lasix) 20 mg DAILY PO Last administered on 04/05/17 08:43; Admin Dose 20 MG; Start 03/21/17 at 09:00 Lorazepam (Ativan) 0.5 mg HS PRN PO ANXIETY Last administered on 03/24/17 20: 55; Admin Dose 0.5 MG; Start 03/20/17 at 19:00 Metoprolol Tartrate (Lopressor) 25 mg BID PO Last administered on 04/05/17 08: 43; Admin Dose 25 MG; Start 03/20/17 at 21:00 Senna (Senokot) 1 tab DAILY PRN PO PRN; Start 03/20/17 at 19:00 Atorvastatin Calcium (Lipitor) 10 mg DAILY@21 PO Last administered on 04/04/17 20:52; Admin Dose 10 MG; Start 03/20/17 at 21:00 Miscellaneous Information 1 ea NOTE XX ; Start 03/20/17 at 19:30 Glucose (Glutose) 15 gm Q15M PRN PO DECREASED GLUCOSE; Start 03/20/17 at 19:30 Glucose (Glutose) 22.5 gm Q15M PRN PO DECREASED GLUCOSE; Start 03/20/17 at 19: 30 Dextrose (D50w Syringe) 25 ml Q15M PRN IV DECREASED GLUCOSE; Start 03/20/17 at 19:30 Dextrose (D50w Syringe) 50 ml Q15M PRN IV DECREASED GLUCOSE; Start 03/20/17 at 19:30 Glucagon (Glucagen) 1 mg Q15M PRN IM DECREASED GLUCOSE; Start 03/20/17 at 19:30 Glucose (Glutose) 15 gm Q15M PRN BUCCAL DECREASED GLUCOSE; Start 03/20/17 at 19 :30 Hydralazine HCl (Apresoline) 10 mg Q6H PRN IV SBP>160 Last administered on 03/28 09:07; Admin Dose 10 MG; Start 03/23/17 at 12:00 Polyethylene Glycol (Miralax) 17 gm BID PO Last administered on 04/04/17 20:53 ; Admin Dose 17 GM; Start 03/23/17 at 21:00 Lisinopril (Zestril) 10 mg DAILY PO Last administered on 04/05/17 08:43; Admin Dose 10 MG; Start 03/24/17 at 15:00 Pantoprazole (Protonix Iv) 40 mg BID@18 IV Last administered on 04/05/17 05: 48; Admin Dose 40 MG; Start 03/29/17 at 06:00 Lorazepam (Ativan) 0.5 mg Q6H PRN PO ANXIETY; Start 04/04/17 at 16:00 OCHOA CAMPOS MD Apr 05, 2017 14:44
[2017-04-05] MEDS: ATORVASTATIN 10 MG TAB PO SCH (20:33)
[2017-04-05] MEDS: DOCUSATE SODIUM 250 MG CAP PO SCH (20:33)
[2017-04-06 04:31] VITALS: BP 124/59; RESP 16
[2017-04-06] MEDS: PANTOPRAZOLE 40 MG INJ IV SCH (05:46)
[2017-04-06 07:44] VITALS: BP 130/61; RESP 19
[2017-04-06] MEDS: POLYETHYLENE GLYCOL 17 GM PACKET PO SCH (09:00)
[2017-04-06] MEDS: ESCITALOPRAM 10 MG TAB PO SCH (09:27)
[2017-04-06] MEDS: CILOSTAZOL 100 MG TAB PO SCH (09:27)
[2017-04-06] MEDS: ARTIFICIAL TEARS 15 ML OPH BOTH EYES SCH (09:27)
[2017-04-06] MEDS: FUROSEMIDE 20 MG TAB PO SCH (09:27)
[2017-04-06] MEDS: LISINOPRIL 10 MG TAB PO SCH (09:28)
[2017-04-06] MEDS: EZETIMIBE 10 MG TAB PO SCH (09:28)
[2017-04-06] MEDS: METOPROLOL 25 MG TAB PO SCH (09:28)
[2017-04-06] MEDS: ENOXAPARIN 40 MG/0.4 ML SYG SC SCH (09:31)
[2017-04-06 11:52] VITALS: BP 101/54; RESP 19
--- NOTE | 2017-04-06 15:34 | PN ---
Date/Time of Note Date/Time of Note DATE: 04/06/17 TIME: 15:33 Assessment/Plan VTE Prophylaxis VTE Prophylaxis Intervention: LMWH Lines/Catheters IV Catheter Type (from Nrsg): Saline Lock Urinary Cath still in place: No Assessment/Plan Assessment/Plan 1. 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 Hypomagnesemia,s/p Correction, still it is low 3. Dehydration, improved 4. Essential hypertension. start lisinopril 03/24/2017 5. Dyslipidemia. Continue statins. 6. Type 2 diabetes mellitus. The patient was continued on sliding scale insulin. Hemoglobin A1c 6.4. 7. History of congestive heart failure. sr-table 8. DVT prophylaxis. Subcutaneous Lovenox no chest pain d/c home today Subjective 24 Hr Interval Summary Free Text/Dictation doing ok, BP stable Exam/Review of Systems Vital Signs Vitals Vital Signs Date Time Temp Pulse Resp B/P Pulse Ox O2 Delivery O2 Flow Rate FiO2 04/06/17 11:52 97.9 75 19 101/54 97 04/06/17 07:46 Nasal Cannula 2.0 Intake and Output 04/05/17 04/05/17 04/06/17 15:00 23:00 07:00 Intake Total 300 ml 200 ml Balance 300 ml 200 ml Exam Constitutional: alert Psych: no complaints Head: normocephalic ENMT: nl external ears & nose Neck: supple Respiratory: clear to auscultation Cardiovascular: regular rate and rhythm Gastrointestinal: soft Musculoskeletal: nl extremities to inspection Extremities: normal pulses Results Result Diagram: 04/02/17 0655 04/04/17 0530 Medications Medications Current Medications Ondansetron HCl (Zofran Inj) 4 mg Q6H PRN IV NAUSEA AND/OR VOMITING; Start at 19:00 Acetaminophen (Tylenol Tab) 650 mg Q6H PRN PO PAIN LEVEL 1-3 OR FEVER; Start at 19:00 Acetaminophen/ Hydrocodone Bitart ([place] (5/325)) 1 tab Q6H PRN PO PAIN LEVEL 4 -6 Last administered on 03/21/17t 16:39; Admin Dose 1 TAB; Start 03/20/17 at 19: 00 Morphine Sulfate (morphine) 2 mg Q4H PRN IV PAIN LEVEL 7-10; Start 03/20/17 at 19:00 Magnesium Hydroxide (Milk Of Mag) 30 ml DAILY PRN PO CONSTIPATION; Start at 19:00 Bisacodyl (Dulcolax) 5 mg DAILY PRN PO CONSTIPATION; Start 03/20/17 at 19:00 Enoxaparin Sodium (Lovenox) 40 mg DAILY SC Last administered on 04/06/17 09:31 ; Admin Dose 40 MG; Start 03/21/17 at 09:00 Cilostazol (Pletal) 100 mg DAILY PO Last administered on 04/06/17 09:27; Admin Dose 100 MG; Start 03/21/17 at 09:00 Eye Lubricant (Artificial Tears Oph) 2 drop BID BOTH EYES Last administered on 04/06/17 09:27; Admin Dose 2 DROP; Start 03/20/17 at 21:00 Docusate Sodium (Colace) 250 mg QHS PO Last administered on 04/05/17 20:33; Admin Dose 250 MG; Start 03/20/17 at 21:00 Escitalopram Oxalate (Lexapro) 10 mg QAM PO Last administered on 04/06/17 09:27 ; Admin Dose 10 MG; Start 03/21/17 at 09:00 EZETIMIBE (Zetia) 10 mg DAILY PO Last administered on 04/06/17 09:28; Admin Dose 10 MG; Start 03/21/17 at 09:00 Furosemide (Lasix) 20 mg DAILY PO Last administered on 04/06/17 09:27; Admin Dose 20 MG; Start 03/21/17 at 09:00 Lorazepam (Ativan) 0.5 mg HS PRN PO ANXIETY Last administered on 03/24/17 20: 55; Admin Dose 0.5 MG; Start 03/20/17 at 19:00 Metoprolol Tartrate (Lopressor) 25 mg BID PO Last administered on 04/06/17 09: 28; Admin Dose 25 MG; Start 03/20/17 at 21:00 Senna (Senokot) 1 tab DAILY PRN PO PRN; Start 03/20/17 at 19:00 Atorvastatin Calcium (Lipitor) 10 mg DAILY@21 PO Last administered on 04/05/17 20:33; Admin Dose 10 MG; Start 03/20/17 at 21:00 Miscellaneous Information 1 ea NOTE XX ; Start 03/20/17 at 19:30 Glucose (Glutose) 15 gm Q15M PRN PO DECREASED GLUCOSE; Start 03/20/17 at 19:30 Glucose (Glutose) 22.5 gm Q15M PRN PO DECREASED GLUCOSE; Start 03/20/17 at 19: 30 Dextrose (D50w Syringe) 25 ml Q15M PRN IV DECREASED GLUCOSE; Start 03/20/17 at 19:30 Dextrose (D50w Syringe) 50 ml Q15M PRN IV DECREASED GLUCOSE; Start 03/20/17 at 19:30 Glucagon (Glucagen) 1 mg Q15M PRN IM DECREASED GLUCOSE; Start 03/20/17 at 19:30 Glucose (Glutose) 15 gm Q15M PRN BUCCAL DECREASED GLUCOSE; Start 03/20/17 at 19 :30 Hydralazine HCl (Apresoline) 10 mg Q6H PRN IV SBP>160 Last administered on 03/28 09:07; Admin Dose 10 MG; Start 03/23/17 at 12:00 Polyethylene Glycol (Miralax) 17 gm BID PO Last administered on 04/05/17 20:33 ; Admin Dose 17 GM; Start 03/23/17 at 21:00 Lisinopril (Zestril) 10 mg DAILY PO Last administered on 04/06/17 09:28; Admin Dose 10 MG; Start 03/24/17 at 15:00 Pantoprazole (Protonix Iv) 40 mg BID@ IV Last administered on 04/06/17 05: 46; Admin Dose 40 MG; Start 03/29/17 at 06:00 Lorazepam (Ativan) 0.5 mg Q6H PRN PO ANXIETY; Start 04/04/17 at 16:00 OCHOA CAMPOS MD Apr 06, 2017 15:34
--- NOTE | 2017-04-06 22:45 | DS ---
DATE OF ADMISSION: 03/22/2017 DATE OF DISCHARGE: 04/06/2017 FINAL DISCHARGE DIAGNOSES: 1. Large cricopharyngeal bar with dysphagia status post esophagogastroduodenoscopy with balloon dil ation performed on 03/28/2017. 2. Status post biopsy, negative for malignancy. 3. Hypomagnesemia, severe. 4. Moderate to severe dehydration. 5. History of hypertension. 6. History of dyslipidemia. 7. History of diabetes mellitus type 2. 8. History of congestive heart failure. CONSULTATIONS DONE DURING THIS HOSPITALIZATION: GI consult, Dr. Aaron. PROCEDURES PERFORMED DURING THIS HOSPITALIZATION: Status post EGD with a balloon dilation performed on 03/28/2017. HOSPITAL COURSE: This is an 86-year-old female with a past medical history of hypertension, CHF, di abetes mellitus type 2, depression who presented with a complaint of shortness of breath, dysphagia, and ____. The patient has had a cricopharyngeal dysphagia for which she had a GI consultation done by Dr. Katelynn Aaron and had EGD with balloon dilation performed on 03/28/2017. After the EGD, her biopsy was negative for any malignancy. The patient had esophageal inflammation and had followup sp eech therapy consultation done, which the patient passed the swallow and was started on a diet. Sh e remained hemodynamically stable. After the patient was tolerating the p.o. diet very well, she wa s set up for discharge back to her original facility that she came from. The patient's family has b een informed about the discharge plan. DISPOSITION: To the facility that the patient came from. DISCHARGE CONDITION: Stable and improved compared to admission. DISCHARGE ACTIVITIES: As tolerated, slowly resume to the normal baseline activity. DISCHARGE DIET: Low fat, low sodium, ADA 1800 kilocalorie diet. DISCHARGE FOLLOWUP AND INSTRUCTIONS: The patient is to follow up with her own primary care doctors through the insurance 1 to 2 weeks after discharge. She has been explained about the discharge plan and followup instructions. She understood and verbalized understanding. Dictated By: OCHOA CAMPOS MD, KP/NTS Conf#: [id number] DID#: [id number] CC: RAMYA VALENCIA MD;*EndCC*
== END 2017-04-06 16:15 | disposition home or self-care (01) | DRG 392 ==
LOC: E/R 15:22 → MS4 18:07 → OBSVTOIN 03-22 11:38
PROVIDERS: ADMIT Family Medicine; ATTEND Family Medicine
PROC: 0DB38ZX Excision of Lower Esophagus, Via Natural or Artificial Opening Endoscopic, Diagnostic (ICD-10-PCS; principal; 2017-03-28 18:00)
PROC: 0D718ZZ Dilation of Upper Esophagus, Via Natural or Artificial Opening Endoscopic (ICD-10-PCS; 2017-03-28 18:00)
DX: R13.19 Other dysphagia (principal); E46 Unspecified protein-calorie malnutrition; E11.8 Type 2 diabetes mellitus with unspecified complications; E83.42 Hypomagnesemia; R63.0 Anorexia; I11.0 Hypertensive heart disease with heart failure; I50.9 Heart failure, unspecified; E86.0 Dehydration; I10 Essential (primary) hypertension; E87.6 Hypokalemia; Z66 Do not resuscitate; Z68.28 Body mass index [BMI] 28.0-28.9, adult; E78.5 Hyperlipidemia, unspecified; K20.9 Esophagitis, unspecified; K44.9 Diaphragmatic hernia without obstruction or gangrene
CPT/HCPCS: 36415; 71010; 74176; 74230; 76937; 80048; 80053; 80061; 81001; 81003; 82962; 83036; 83690; 83735; 84100; 84132; 84439; 84443; 84484; 85025; 85610; 85730; 87081; 87086; 88305; 88313; 92526; 92610; 92611; 93005; 96374; 96375; 97110; 97162; 97530; G0378; C9113; J0360; J1650; J1815; J2405; J3475; J3480; J7030; J7050